=== PATIENT | female | born 1975 | race African-American/Black ===

== ENCOUNTER 2021-07-11 10:53 | Outpatient (REF) | payer OTHER, SELFPAY ==
[2021-07-11 14:23] LABS: Anion Gap 10 (12-20); Blood Urea Nitrogen 11 mg/dL (9-16); Calcium 9.3 mg/dL (8.4-10.2); Carbon Dioxide 28 mmol/L (22-29); Chloride 105 mmol/L (96-108); Estimated Glomerular Filt Rate > 60; Glucose Fasting 81 mg/dL (60-99); Potassium 4.1 mmol/L (3.3-5.1); Sodium 139 mmol/L (135-145)
== END 2021-07-11 10:54 | disposition home or self-care (01) ==
LOC: HO.WFDLDS 10:53
PROVIDERS: Visit Provider Hospitalist
DX: Z76.89 Persons encountering health services in other specified circumstances (principal)
CPT/HCPCS: 36415; 80048

== ENCOUNTER 2021-07-20 10:33 | Outpatient (REF) | payer OTHER, SELFPAY ==
[2021-07-20 13:49] LABS: Hematocrit 35.1 % (37.0-47.0); Hemoglobin 10.3 g/dl (12.0-16.0); Mean Corpuscular HGB Conc 29.3 g/dl (31.0-35.0); Mean Corpuscular Hemoglobin 19.8 pg (27.0-33.0); Mean Corpuscular Volume 67.5 fL (80.0-98.0); Mean Platelet Volume 10.5 fL (9.4-12.3); Platelet Count 386 X10*3/uL (160-400); Red Cell Distribution Width 19.9 % (11.0-16.0); White Blood Count 7.7 X10*3/uL (4.8-10.8)
[2021-07-20 14:34] LABS: Alanine Aminotransferase 14 U/L (0-31); Alkaline Phosphatase 72 U/L (39-117); Anion Gap 12 (12-20); Aspartate Amino Transferase 16 U/L (5-31); Bilirubin Total 0.3 mg/dL (0.0-1.0); Blood Urea Nitrogen 14 mg/dL (9-16); Calcium 9.5 mg/dL (8.4-10.2); Carbon Dioxide 26 mmol/L (22-29); Chloride 102 mmol/L (96-108); Cholesterol 146 mg/dL; Estimated Glomerular Filt Rate 59; Glucose Fasting 163 mg/dL (60-99); HDL Cholesterol 31 mg/dL; LDL Cholesterol Calculated 97 mg/dl; Potassium 3.6 mmol/L (3.3-5.1); Sodium 136 mmol/L (135-145); Total Protein 7.5 g/dL (6.5-8.0); Triglycerides 93 mg/dL
[2021-07-20 14:54] LABS: TSH reflex Free T4 0.59 uIU/mL (0.32-4.0)
== END 2021-07-20 10:34 | disposition home or self-care (01) ==
LOC: HO.WFDLDS 10:33
PROVIDERS: Visit Provider Hospitalist
DX: Z00.00 Encounter for general adult medical examination without abnormal findings (principal)
CPT/HCPCS: 36415; 80053; 80061; 84443; 85027

== ENCOUNTER → 2021-12-20 14:57 | Outpatient (BNVA) | payer OTHER, SELFPAY | PROVIDERS: PCP Hospitalist; Referring Provider Hospitalist; Visit Provider Nurse Practitioner | DX: D56.9 Thalassemia, unspecified (principal); D50.9 Iron deficiency anemia, unspecified; Z86.010 Personal history of colon polyps | CPT/HCPCS: 99202 ==

== ENCOUNTER 2022-01-09 | Outpatient (REF) | payer OTHER, SELFPAY ==
[2022-01-11 07:58] LABS: FIT1 NEGATIVE (NEGATIVE); FIT2 NEGATIVE (NEGATIVE)
[2022-01-11 07:59] LABS: FIT Int Ctl YES
== END 2022-01-09 00:01 | disposition home or self-care (01) ==
LOC: HO.LNP
PROVIDERS: Visit Provider Nurse Practitioner
DX: D56.9 Thalassemia, unspecified (principal); D50.9 Iron deficiency anemia, unspecified
CPT/HCPCS: 82274

== ENCOUNTER 2022-08-02 11:47 | Outpatient (REF) | payer OTHER, SELFPAY ==
[2022-08-02 14:12] LABS: MANUAL DIFF FLAG NO
[2022-08-02 14:25] LABS: Basophils Absolute Auto 0.1 X10*3/uL (0.0-0.2); Basophils Percent Auto 0.8 % (0-2); Eosinophils Absolute Auto 0.1 X10*3/uL (0.0-0.4); Eosinophils Percent Auto 1.1 % (0-4); Hematocrit 37.9 % (37.0-47.0); Hemoglobin 11.9 g/dl (12.0-16.0); Imm Gran Abs Auto 0.04 X10*3/uL (0.00-0.03); Imm Gran Pct Auto 0.4 % (0.0-0.4); Lymphocytes Absolute Auto 4.1 X10*3/uL (1.2-4.9); Lymphocytes Percent Auto 43.7 % (20-40); Mean Corpuscular HGB Conc 31.4 g/dl (31.0-35.0); Mean Corpuscular Volume 79.6 fL (80.0-98.0); Mean Platelet Volume 11.2 fL (9.4-12.3); Monocytes Absolute Auto 0.7 X10*3/uL (0.1-1.2); Neutrophils Absolute Auto 4.5 x10*3/uL (2.0-8.3); Platelet Count 315 X10*3/uL (160-400); Red Blood Count 4.76 X10*6/uL (4.20-5.50); Red Cell Distribution Width 16.1 % (11.0-16.0); White Blood Count 9.5 X10*3/uL (4.8-10.8)
[2022-08-02 15:35] LABS: Alanine Aminotransferase 14 U/L (0-31); Albumin Level 4.1 g/dL (3.5-5.0); Alkaline Phosphatase 68 U/L (39-117); Anion Gap 12 (12-20); Aspartate Amino Transferase 18 U/L (5-31); Bilirubin Total 0.5 mg/dL (0.0-1.0); Blood Urea Nitrogen 15 mg/dL (9-16); Carbon Dioxide 29 mmol/L (22-29); Chloride 103 mmol/L (96-108); Cholesterol 156 mg/dL; Estimated Glomerular Filt Rate 58; Ferritin 46 ng/mL (10-250); Glucose Fasting 95 mg/dL (60-99); Glucose Random 95 mg/dL (60-115); HDL Cholesterol 34 mg/dL; LDL Cholesterol Calculated 98 mg/dl; Potassium 3.8 mmol/L (3.3-5.1); Sodium 140 mmol/L (135-145); TSH reflex Free T4 1.12 uIU/mL (0.32-4.0); Total Protein 7.4 g/dL (6.5-8.0); Triglycerides 121 mg/dL
== END 2022-08-02 11:48 | disposition home or self-care (01) ==
LOC: HO.WFDLDS 11:47
PROVIDERS: Internal Medicine Medical Oncology; Visit Provider Hospitalist
DX: Z00.00 Encounter for general adult medical examination without abnormal findings (principal); D50.9 Iron deficiency anemia, unspecified
CPT/HCPCS: 36415; 80053; 80061; 82728; 84443; 85025

== ENCOUNTER → 2022-12-19 08:41 | Outpatient (BNVA) | payer OTHER, SELFPAY | PROVIDERS: PCP Hospitalist; Visit Provider Nurse Practitioner | DX: Z01.818 Encounter for other preprocedural examination (principal); Z12.11 Encounter for screening for malignant neoplasm of colon; D50.9 Iron deficiency anemia, unspecified; D56.9 Thalassemia, unspecified; D12.6 Benign neoplasm of colon, unspecified; Z86.010 Personal history of colon polyps | CPT/HCPCS: 99212 ==

== ENCOUNTER 2023-06-12 08:58 | Day surgery (SDC) | payer OTHER, SELFPAY ==
--- NOTE | 2023-06-11 11:47 | P.CONAN_ITS ---
Documented by User: Yumiko Sorto NP 06/11/23 11:50 HPI - Anesthesia Eval Consult details Narrative: 47yo F for Colonoscopy Hx anemia and thalasemia. Per 08/2022 heme office visit, no treatment beyond folic acid and GI eval for LINDA. PCP to follow. [facility] Active Problems Active Problems: All Active Problems (Updated 05/29/23 @ 12:00 by [employer]) Pre-op examination (Acute) Well-controlled hypertension (Acute) BMI 34.0-34.9,adult (Acute) Tubular adenoma of colon (Acute) Diabetes type 2, controlled (Acute) Microcytic anemia (Acute) Elevated hemoglobin A1c (Acute) BMI 39.0-39.9,adult (Acute) Thalassemia (Acute) Poorly-controlled hypertension (Acute) Normal physical exam (Acute) Encounter to establish care with new doctor (Acute) Past Medical History Medical History Diabetes type 2, controlled Thalassemia TIA (transient ischemic attack) Family History Family History Maternal Grandmother Colon cancer Diabetes High blood pressure Stroke Father Abnormal heart rhythm High blood pressure Paternal Grandmother Kidney disease Surgical History Surgical History History of esophagogastroduodenoscopy (EGD) H/O colonoscopy Hx of cholecystectomy Social History Social History Household Members: Spouse and Children Housing: Apartment Are you a primary director day care center to a significant other at home: No Do you presently have visiting nurse or other home services: No Patient Tobacco Use Status: Never used Tobacco e-Cigarette/Vaping Use: Never Used Advance Directives: No Advance Directives Information Provided: Yes service: No Current occupational status: unemployed Current occupational exposures/hazards: No Cognitive needs: No Hearing needs: No Vision needs: No Meds Allergies Allergy/AdvReac Type Severity Reaction Status Date / Time No Known Allergies Allergy Verified 09/01/22 15:18 Exam Exam Date and Time: June 11, 2023 1147 Assessment and Plan Assessment Anesthesia Assessment: Chart Reviewed Documented by User: Kayleigh Walker MD 06/12/23 09:31 PMFSH Past Medical History Medical History Diabetes type 2, controlled Thalassemia TIA (transient ischemic attack) Family History Family History Maternal Grandmother Colon cancer Diabetes High blood pressure Stroke Father Abnormal heart rhythm High blood pressure Paternal Grandmother Kidney disease Family history of problems with anesthesia: No Surgical History Surgical History History of esophagogastroduodenoscopy (EGD) H/O colonoscopy Hx of cholecystectomy History of Problems with Anesthesia: No Social History Social History Household Members: Spouse and Children Housing: Apartment Are you a primary director day care center to a significant other at home: No Do you presently have visiting nurse or other home services: No Patient Tobacco Use Status: Never used Tobacco e-Cigarette/Vaping Use: Never Used Advance Directives: No Advance Directives Information Provided: Yes service: No Current occupational status: unemployed Current occupational exposures/hazards: No Cognitive needs: No Hearing needs: No Vision needs: No Meds Allergies Allergy/AdvReac Type Severity Reaction Status Date / Time No Known Allergies Allergy Verified 09/01/22 15:18 Exam Airway Mallampati Class: II TM Dist: >3cm Neck ROM: Full Heart: rrr Lungs: cta Assessment and Plan Assessment Anesthesia Assessment: Anesthesia Plan Discussed Final Anesthetic Review Family History of Problems with Anesthesia: No History of Problems with Anesthesia: No NPO: Yes ASA Class: III Final Preanesthetic Review: No Changes in Pt Med Stat, Meds/Allgs Chart Reviewed, Consent Obtained/Reviewed and Anes Risks/Benef Reviewed Patient Risk: Intermediate Procedure Risk: Low Anesthetic Plan Anesthetic Plan: MAC: Disposition: Standard PACU
[2023-06-12 09:35] LABS: UPreg QC Valid YES; Urine Pregnancy NEGATIVE (NEGATIVE)
[2023-06-12 09:43] VITALS: BMI 35.5
[2023-06-12 09:45] VITALS: BP 148/84; PULSE 60; RESP 18; TEMP 36.3; O2SAT 98
[2023-06-12] MEDS: Lactated Ringers 1,000 ML 100 ML IVCONT (09:46)
--- NOTE | 2023-06-12 09:49 | MHC.SHP ---
Pre-Procedural Eval Section A Date of Service: 06/12/23 Section B Chief Complaint: Benign neoplasm of colon, unspecified, Thalassemia Relevant Family History (Specify if Yes): Yes Relevant Social History: None Present Medications: see Short Stay Collaborative assessment Medical History: Significant History (Thalassemia TIA (transient ischemic attack)) History of Previous Operations: Relevant previous surgery/procedure and date(s) (H/O colonoscopy History of esophagogastroduodenoscopy (EGD) Hx of cholecystectomy) Allergies: Allergies Allergy/AdvReac Type Severity Reaction Status Date / Time No Known Allergies Allergy Verified 09/01/22 15:18 Review of Systems Sugical H&P ROS: Negative: Constitution, Cardiovascular, Respiratory, Neurological, Psychiatric, Hem-Onc, Allergic/Immunologic, Gastrointestinal, Genitourinary, Musculoskeletal, Integumentary, Endocrine and Eyes/Ears/Nose/Throat Exam Surgical H&P Exam: Normal: HEENT, Normal: Heart, Normal: Lungs, Normal: Extremities, Normal: Abdomen, Normal: Skin and Normal: Neurological Plan Diagnosis/Plan: Unchanged I have reviewed the history and physical and performed a pertinent physical examination on my patient. No changes have occurred unless specified. Time Spent With Patient Time: Total time managing care of this patient today ____ minutes.
[2023-06-12 09:51] LABS: Glucose, Whole Blood 115 mg/dL (60-115)
--- NOTE | 2023-06-12 09:52 | P.OP_ITS ---
Operative Note Operative Note Date of Service: 06/12/23 Narrative: Operative Information Procedure Description: Colonoscopy Indication: screening Anesthesia: MAC COLONOSCOPY Instrument: Olympus variable stiffness pediatric scope 190L Colonoscopy Monitoring: Vital signs and clinical assessment, continuous EKG monitoring, Pulse oximetry, Carbon Dioxide monitoring and blood pressure monitoring were done throughout the procedure. Colon withdrawal time was 8 minutes. Procedure: The patient was placed in the left lateral decubitis position and pre-procedure medications were administered. After a digital rectal examination of the ano-rectum, the video colonoscope was inserted into the rectum and advanced through the colon to the cecum/TI. The colonoscope was slowly withdrawn in a retrograde panoramic fashion and the colon mucosa was carefully examined including a retroflexed view of the rectum. Findings and interventions are described below. Procedure Difficulty: moderate, pressure applied Findings: Terminal Ileum-normal Cecum:normal Ascending Colon: normal Transverse Colon -normal Descending Colon:normal Sigmoid Colon: normal Rectum: Retroflexion with small internal hemorrhoids, grade I Anorectum - normal Colon preparation: [place] Bowel Preparation Scale Right colon; 2 Transverse colon: 2 Left colon; 2 (0 = Unprepared colon segment with mucosa not seen due to solid stool that cannot be cleared. 1 = Portion of mucosa of the colon segment seen, but other areas of the colon segment not well seen due to staining, residual stool and/or opaque liquid. 2 = Minor amount of residual staining, small fragments of stool and/or opaque liquid, but mucosa of colon segment seen well. 3 = Entire mucosa of colon segment seen well with no residual staining, small fragments of stool or opaque liquid) Impression and Post Procedure Diagnosis: internal hemorrhoids Plan: High fiber diet leaflet Avoid straining at stool, epsom salts and sitz bath, anusol supps or cream Repeat Colonoscopy in 5 years due to prior hx of polyps and FH of CRC in grandparent or earlier if clinically indicated Above findings were reviewed with the patient and relevant handouts were provided if indicated.
[2023-06-12 10:34] VITALS: BP 143/70; PULSE 95; RESP 16; TEMP 36.8; O2SAT 98
[2023-06-12 10:49] VITALS: BP 138/69; PULSE 68; RESP 16; O2SAT 97
[2023-06-12 10:55] VITALS: BP 146/85; PULSE 63; RESP 14; TEMP 36.6; O2SAT 98
== END 2023-06-12 11:32 | disposition home or self-care (01) ==
PROVIDERS: Nurse Practitioner; PCP Hospitalist; Visit Provider Internal Medicine Gastroenterology
PROC: 0DJD8ZZ Inspection of Lower Intestinal Tract, Via Natural or Artificial Opening Endoscopic (ICD-10-PCS; CPT 45378; principal; 2023-06-12 10:50)
DX: Z12.11 Encounter for screening for malignant neoplasm of colon (principal); Z86.010 Personal history of colon polyps; K64.0 First degree hemorrhoids; D56.9 Thalassemia, unspecified; I10 Essential (primary) hypertension; E11.8 Type 2 diabetes mellitus with unspecified complications; D50.9 Iron deficiency anemia, unspecified; Z80.1 Family history of malignant neoplasm of trachea, bronchus and lung; Z86.73 Personal history of transient ischemic attack (TIA), and cerebral infarction without residual deficits; Z90.49 Acquired absence of other specified parts of digestive tract
CPT/HCPCS: 45378; 81025; 82947; J1100; J2765

== ENCOUNTER → 2023-06-12 08:58 | Outpatient (BNV) | payer OTHER, SELFPAY | PROVIDERS: PCP Hospitalist; Visit Provider Internal Medicine Gastroenterology | DX: Z12.11 Encounter for screening for malignant neoplasm of colon (principal); K64.0 First degree hemorrhoids | CPT/HCPCS: 45378 ==

== ENCOUNTER 2023-08-22 10:48 | Outpatient (AMB) | payer OTHER, SELFPAY ==
--- NOTE | 2023-08-22 10:50 | MHC.PC.OV ---
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 Her last office visit was in 07/2022. Her last routine blood work was almost a year ago She has history of hypertension, pre-diabetes, obesity, and thalassemia. She notes that she has been on atorvastatin 20mg daily since she was diagnosed with TIA 8 years ago She admits to taking her medications as prescribed without adverse reactions She denies acute symptoms at this time She reports h/o amenorrhea for over a year. She notes that her former PCP prescribed due to prediabetes and likely PCOS d/t h/o amenorrhea. She denies h/o diabetes. She notes that she has not had her period for over 1 year. She reports light spotting x 1 day last month or in June. She also reports associated intermittent hot flashes. She states there is no chance she could be She notes that her last gynecology visit and pap smear test was 5-6 years ago. She had a normal pap smear. She has not established with a quality control chemist since she relocated from [facility] 4.5 years ago Her last eye exam with [facility] was on 07/31/2023 Her last colonoscopy was with [facility] [place] on 05/2023: Normal. Repeat Colonoscopy in 5 years due to prior hx of polyps and FH of CRC in grandparent or earlier if clinically indicated [facility] Medical History (Updated 08/22/23 @ 12:04 by Amalia Clancy CNP) Diabetes type 2, controlled Thalassemia TIA (transient ischemic attack) Surgical History History of esophagogastroduodenoscopy (EGD) H/O colonoscopy Hx of cholecystectomy Family History Maternal Grandmother Colon cancer Diabetes High blood pressure Stroke Father Abnormal heart rhythm High blood pressure Paternal Grandmother Kidney disease Social History Household Members: Spouse and Children Housing: Apartment Are you a primary laboratory animal caretaker to a significant other at home: No Do you presently have visiting nurse or other home services: No Patient Tobacco Use Status: Never used Tobacco e-Cigarette/Vaping Use: Never Used service: No Current occupational status: employed 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 1. Little interest or pleasure in doing things: not at all 2. Feeling down, depressed, or hopeless: not at all 3. Trouble falling or staying asleep, or sleeping too much: several days 4. Feeling tired or having little energy: not at all 5. Poor appetite or overeating: not at all 6. Feeling bad about yourself - or that you are a failure or have let yourself or your family down: not at all 7. Trouble concentrating on things, such as reading the newspaper or watching television: not at all 8. Moving or speaking so slowly that other people could have noticed. Or the opposite - being so fidgety or restless that you have been moving around a lot more than usual: not at all 9. Thoughts that you would be better off or of hurting yourself in some way: not at all Total score: 1 Depression Screening Interpretation: Negative Depression Screening Done: Yes 03016 - PHQ-9 Billing: Yes Source: Developed by Drs. Lester Olivera, Laura Lepe, Ho Slater and colleagues, with an educational chelsey from [employer]. Thrive Questionnaire Date Thrive assessed: 08/22/23 I am a: Patient What is your living situation today?: I have a steady place to live Within the past 12 months, did the food you bought not last and you didn't have the money to get more?: Never true Within the past 12 months, did you worry whether your food would run out before you got money to buy more?: Never true Do you have trouble paying for medicines?: No Do you have trouble getting transportation to medical appointments?: No Do you have trouble paying your heating and electricity bill?: No Do you have trouble taking care of your child, family member or friend?: No Do you have trouble with day-to-day activities such as bathing, preparing meals, shopping, managing finances, etc.?: No Are you currently unemployed and looking for a job?: No Are you interested in more education?: Yes Please select the resources that you would like help with: Education Currently or been in a relationship where the following occur: no concerns reported AUDIT C Alcohol Use Questionnaire (AUDIT-C) 1. How often do you have a drink containing alcohol?: 2-4 times a month 2. How many drinks containing alcohol do you have on a typical day when you are drinking?: 1 or 2 3. How often do you have six or more drinks on one occasion?: Never Total Score: 2 TIANA-7 AMB Questionnaire TIANA-7 Date TIANA - 7 assessed: 08/22/23 Feeling nervous, anxious, or on edge: 0 = Not at all Not being able to stop or control worryin = Not at all Worrying too much about different things: 1 = Several days Trouble relaxin = Not at all Being so restless that it is hard to sit still: 0 = Not at all Becoming easily annoyed or irritable: 1 = Several days Feeling afraid as if something awful might happen: 0 = Not at all Total TIANA-7 score (0-4 normal; 5-9 mild; 10-14 moderate; 15-21 severe): 2 Source: Developed by Drs. Lester Olivera, Laura Lepe, Ho Slater and colleagues, with an educational chelsey from [employer]. TIANA-7 Assessment Billing TIANA-7 Assessment Tool: TIANA-7 Assessment [id number] Review of Systems Const Details: Const Denies chills, Denies fatigue, Denies fever(s), Denies headache(s) and Denies weakness ENT Denies dizziness and Denies headache(s) Card Denies chest pain, Denies lightheadedness, Denies dyspnea and Denies other (Palpitations) Resp Denies cough, Denies dyspnea, Denies wheezing and Denies other ( shortness of breath) GI Denies abdominal pain, Denies melena, Denies hematochezia, Denies change in bowel habits, Denies dyspepsia and Denies nausea Denies hematuria and Denies dysuria Musc Denies abnormal gait, Denies myalgias, Denies arthralgias, Denies numbness and Denies tingling Skin/Breast Denies rash, Denies unusual bruising and Denies wounds Neuro Denies abnormal gait, Denies dizziness, Denies headache(s), Denies memory loss, Denies numbness, Denies Sensory deficit (Neuro), Denies tingling and Denies weakness Psych Denies anxiety, Denies depression, Denies memory loss Endo Denies cold intolerance, Denies fatigue, Denies heat intolerance, Denies polydipsia and Denies polyuria Aller/Immun Denies wheezing Physical exam (Primary Care) Vital Signs: Last Vital Signs Temp 97.3 F 08/22/23 10:51 Pulse 84 08/22/23 10:51 Resp 13 08/22/23 10:51 BP 128/76 08/22/23 10:51 Pulse Ox 99 08/22/23 10:51 Oxygen Delivery Method Room Air 08/22/23 10:51 BMI result Body Mass Index 36.6 Tobacco/Smoking Status: Tobacco use Status Tobacco use date assessed 08/22/23 08/22/23 11:05 Patient Tobacco Use Status Never used Tobacco 08/22/23 10:58 e-Cigarette/Vaping Use Never Used 08/22/23 10:58 PHQ-9: PHQ-9 Score PHQ-9: Total score 1 08/22/23 11:23 Depression Screening Interpretation: Negative Thrive Assessment: Date of Thrive Assessment Date Thrive assessed 08/22/23 08/22/23 11:05 Currently or been in a relationship where the following occur: no concerns reported Const Other: General: no acute distress and well developed Nutritional Appearance: well nourished Orientation/consciousness: patient oriented x3 HENMT Head: Yes normocephalic and Yes atraumatic Eyes General: appearance normal, both eyes and all related structures Pupils: Equal, round and reactive pupils present EOM: EOMs intact bilaterally Resp Effort & Inspection: normal respiratory effort Auscultation: clear to auscultation bilaterally Cardio Rate: regular rate Rhythm: regular rhythm Heart sounds: S1 normal heart sound present, S2 normal heart sound present, no gallops, no murmurs and no rubs GI Palpation (GI): No Abdominal aortic bruit present, Soft to palpation, nontender, No hepatosplenomegaly present and No Rebound tenderness present Auscultation: normal bowel sounds General: Yes no CVA tenderness Back/Spine/Pelvis Back: no CVA tenderness Cervical Spine: cervical ROM normal and No Cervical spine tenderness Thoracic/Lumbar Spine: thoraco-lumbar ROM normal, No pain with thoraco-lumbar ROM, No thoracic spinal tenderness and No lumbar spinal tenderness Extrem General: Yes normal to inspection, No edema and No calf tenderness Skin General: warm and dry. Normal skin color. Normal skin turgor Lesions: no lesions Rashes: no rashes Trauma: no lacerations or abrasions Wounds: no wounds Nails: normal Neuro General: patient oriented x3, gait normal and no focal neuro deficit Cranial nerves: Yes Equal, round and reactive pupils present Cognition (Neuro): normal cognition Gait exam (Neuro): Normal gait present Sensory Exam: No Sensory deficit (Neuro) Psych Appearance: grossly normal Affect: normal affect Attitude: cooperative Thought process: Normal thought process present Assessment and Plan Assessment & Plan (1) Hypertension: Code(s): I10 - Essential (primary) hypertension Qualifiers: Hypertension type: primary hypertension Qualified Code(s): I10 - Essential (primary) hypertension Plan: Blood pressure is 120/76, within goal of less than 140/90 Continue current treatment regimen Low-sodium diet encouraged Follow-up in 1-2 months for an extended exam and labs review Return sooner with symptoms or concerns Verbalized understanding and agreed with treatment plan (2) Prediabetes: Code(s): R73.03 - Prediabetes Plan: Denies history of diabetes A1c 6.3% Continue to take metformin as prescribed ADA diet and routine exercise encouraged Will recheck A1c in 6 months Verbalized understanding and agreed with treatment plan (3) Amenorrhea: Code(s): N91.2 - Amenorrhea, unspecified Plan: She notes that she stopped having menstrual cycles over a year ago. However she had some light spotting last month order month prior. She reports associated hot flashes. She denies being Likely menopause Referred to [facility] electrical development engineer for further evaluation Return with worsening or new symptoms Verbalized understanding and agreed with treatment plan (4) Vasomotor symptoms due to menopause: Code(s): N95.1 - Menopausal and female climacteric states Plan: As above (5) Pap smear for cervical cancer screening: Code(s): Z12.4 - Encounter for screening for malignant neoplasm of cervix Plan: She notes that her last Pap smear test was 5-6 years ago: Normal Referred to [facility] electrical development engineer (6) Obesity (BMI 30-39.9): Code(s): E66.9 - Obesity, unspecified Plan: She currently weighs 213 lb, BMI is 36.6 She notes she has been walking for exercise and eat fairly healthy She intends to exercise routinely, including utilizing the gym and make healthy dietary choices Declines referral to dietitian/warehouse assistant or weight management She notes she will make lifestyle changes for 6 months and inform her PCP if she is unable to lose weight so that a referral can be made for weight management Advised to follow-up with symptoms or concerns Verbalized understanding and agreed with treatment plan Orders: Orders AMB Hemoglobin A1c Today Z13.9 - Encounter for screening, unspecified Complete Blood Count Auto Diff Today I10 - Essential (primary) hypertension, R73.03 - Prediabetes, Z00.00 - Encounter for general adult medical examination without abnormal findings Comprehensive Trenary. Panel Fast Today I10 - Essential (primary) hypertension, R73.03 - Prediabetes, Z00.00 - Encounter for general adult medical examination without abnormal findings Lipid Panel Today Z00.00 - Encounter for general adult medical examination without abnormal findings UA CC w/rflx Micro + Cult Today Z00.00 - Encounter for general adult medical examination without abnormal findings TSH reflex Free T4 Today Z00.00 - Encounter for general adult medical examination without abnormal findings HCG Quantitative Today N91.2 - Amenorrhea, unspecified Referrals CENTRAL SUPPLY SUPERVISOR Referral N91.2 - Amenorrhea, unspecified, N95.1 - Menopausal and female climacteric states, Z12.4 - Encounter for screening for malignant neoplasm of cervix Coding Level of Care Code Est Pt Level 4 (91892) Diagnoses Primary hypertension I10 Hypertension type: primary hypertension Prediabetes R73.03 Amenorrhea N91.2 Vasomotor symptoms due to menopause N95.1 Pap smear for cervical cancer screening Z12.4 Obesity (BMI 30-39.9) E66.9 Additional Codes TIANA-7 Assessment Billing - TIANA-7 Assessment Tool: TIANA-7 Assessment [id number] ([id number])
[2023-08-22 10:51] VITALS: BP 128/76; PULSE 84; RESP 13; TEMP 36.3; O2SAT 99; BMI 36.6
== END 2023-08-22 12:02 | disposition home or self-care (01) ==
PROVIDERS: PCP Nurse Practitioner Family; Visit Provider Nurse Practitioner Family
DX: I10 Essential (primary) hypertension (principal); E66.9 Obesity, unspecified; Z68.36 Body mass index [BMI] 36.0-36.9, adult; R73.03 Prediabetes; N91.2 Amenorrhea, unspecified; N95.1 Menopausal and female climacteric states
CPT/HCPCS: 83036; 99214

== ENCOUNTER 2023-08-22 12:04 | Outpatient (REF) | payer OTHER, SELFPAY ==
[2023-08-22 14:09] LABS: MANUAL DIFF FLAG NO
[2023-08-22 14:13] LABS: Basophils Absolute Auto 0.1 X10*3/uL (0.0-0.2); Eosinophils Absolute Auto 0.1 X10*3/uL (0.0-0.4); Eosinophils Percent Auto 1.3 % (0-4); Hematocrit 40.7 % (37.0-47.0); Hemoglobin 12.6 g/dl (12.0-16.0); Imm Gran Abs Auto 0.02 X10*3/uL (0.00-0.03); Imm Gran Pct Auto 0.3 % (0.0-0.4); Lymphocytes Absolute Auto 3.3 X10*3/uL (1.2-4.9); Lymphocytes Percent Auto 47.2 % (20-40); Mean Corpuscular Hemoglobin 25.2 pg (27.0-33.0); Mean Corpuscular Volume 81.4 fL (80.0-98.0); Mean Platelet Volume 11.2 fL (9.4-12.3); Monocytes Absolute Auto 0.5 X10*3/uL (0.1-1.2); Monocytes Percent Auto 7.4 % (2-11); Neutrophils Percent Auto 42.8 % (45-73); Platelet Count 266 X10*3/uL (160-400); Red Cell Distribution Width 15.9 % (11.0-16.0); White Blood Count 6.9 X10*3/uL (4.8-10.8)
[2023-08-22 14:14] LABS: Appearance Urine Clear; Color Urine Yellow; Glucose Urine UA Negative (Negative); Leukocyte Esterase Urine Negative (Negative); Nitrite Urine Negative (Negative); UMIC TRIGGER UACC YES; Urine Blood Small (1+) (Negative); Urine Ketones Negative (Negative); Urine Protein Negative (Neg-Trace)
[2023-08-22 14:17] LABS: Bacteria Urine None Seen (None Seen); Hyaline Casts Urine 0-2 /LPF (0-2); Squamous Epithelial Cell Urine 0-2 /HPF (0-2); WBC Urine 0-5 /HPF (0-5)
[2023-08-22 15:01] LABS: Alanine Aminotransferase 12 U/L (0-31); Albumin Level 4.1 g/dL (3.5-5.0); Alkaline Phosphatase 72 U/L (39-117); Anion Gap 13 (12-20); Aspartate Amino Transferase 15 U/L (5-31); Bilirubin Total 0.4 mg/dL (0.0-1.0); Blood Urea Nitrogen 16 mg/dL (9-16); Carbon Dioxide 27 mmol/L (22-29); Chloride 105 mmol/L (96-108); Cholesterol 170 mg/dL (<200); Estimated Glomerular Filt Rate > 60; Glucose Fasting 97 mg/dL (60-99); HDL Cholesterol 37 mg/dL (>40); LDL Cholesterol Calculated 108 mg/dL (<100); Potassium 3.7 mmol/L (3.3-5.1); Sodium 141 mmol/L (135-145); Triglycerides 129 mg/dL (<150)
[2023-08-22 15:08] LABS: HCG Quantitative 4 mIU/mL; TSH reflex Free T4 0.77 uIU/mL (0.32-4.0)
== END 2023-08-22 12:05 | disposition home or self-care (01) ==
LOC: HO.WFDLDS 12:04
PROVIDERS: Visit Provider Nurse Practitioner Family
DX: Z00.00 Encounter for general adult medical examination without abnormal findings (principal); R73.01 Impaired fasting glucose; I10 Essential (primary) hypertension
CPT/HCPCS: 36415; 80053; 80061; 81001; 84443; 84702; 85025

== ENCOUNTER 2023-10-18 14:43 | Outpatient (REF) | payer OTHER, SELFPAY ==
[2023-10-25 04:23] LABS: HPV mRNA E6/E7 rflx Not Detected (Not Detected)
== END 2023-10-18 14:44 | disposition home or self-care (01) ==
LOC: HO.LNP 14:43
PROVIDERS: PCP Nurse Practitioner Family; Visit Provider Advanced Practice Midwife
DX: Z01.419 Encounter for gynecological examination (general) (routine) without abnormal findings (principal); N95.0 Postmenopausal bleeding; R23.2 Flushing
CPT/HCPCS: 87624; 88142; 99386

== ENCOUNTER 2023-10-18 14:43 | Outpatient (AMB) | payer OTHER, SELFPAY ==
--- NOTE | 2023-10-18 14:49 | A.OFFVIS_ITS ---
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 Doing well with no concerns. She tries to eat healthy and stays active with exercise. Currently is sexually active with her . She denies vaginal itching and irritation. STI screening offered; she declines. No menses in > 1-2yrs., having hot flashes. She reports light spotting in July. Denies family history of ovarian cancer. FH-breast cancer-cousin, colon cancer- MGM. Last pap smear unknown, negative. Mammogram: not UTD. [facility] Medical History (Updated 08/22/23 @ 12:04 by Amalia Clancy CNP) Diabetes type 2, controlled Thalassemia TIA (transient ischemic attack) Surgical History History of esophagogastroduodenoscopy (EGD) H/O colonoscopy Hx of cholecystectomy Family History (Updated 10/18/23 @ 14:56 by JOCY Holliday) Maternal Grandmother Colon cancer Diabetes High blood pressure Stroke Father Abnormal heart rhythm High blood pressure Paternal Grandmother Kidney disease Family/Other Breast cancer Social History (Updated 10/18/23 @ 14:56 by JOCY Holliday) Household Members: Spouse and Children Housing: Apartment Are you a primary care analyst to a significant other at home: No Do you presently have visiting nurse or other home services: No Alcohol intake: current Alcohol intake frequency: holidays/special occasions only Patient Tobacco Use Status: Never used Tobacco e-Cigarette/Vaping Use: Never Used service: No Current occupational status: employed 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 Current occupational exposures/hazards: No Cognitive needs: No Hearing needs: No Vision needs: No Female Reproductive History Menstrual Age of Menarche: 10 Duration of menses: 6-7 days control method: none Total pregnancies: 3 Full term: 3 Number of Living Children: 3 Review of Systems Const All systems reviewed & are unremarkable except as noted in HPI and below Reports as per HPI Eyes Reports no additional complaints ENT Reports no additional complaints Card Reports no additional complaints Resp Reports no additional complaints GI Reports as per HPI and Reports no additional complaints Reports as per HPI Musc Reports no additional complaints Skin/Breast Reports as per HPI Neuro Reports no additional complaints Psych Reports no additional complaints Endo Reports no additional complaints Jeanp-Aul/Lymph Reports no additional complaints Aller/Immun Reports no additional complaints Physical Exam Vital Signs: Last Vital Signs BP 132/90 H 10/18/23 14:50 BMI result Body Mass Index 36.7 Const General: cooperative, healthy appearing, no acute distress, well developed and alert Orientation/consciousness: patient oriented x3 HEENT Head: Yes normal to inspection Eyes General: appearance normal, both eyes and all related structures Neck Neck: Yes normal visual inspection Thyroid: Thyroid normal Chest Chest palpation & inspection: normal inspection of the chest and other (no puckering, dimpling, peau de orange, retraction, discharge, masses) Breast/axilla inspection: normal inspection of the breasts Breast/axilla palpation: normal palpation of the breasts Resp Effort & Inspection: normal respiratory effort GI Inspection: Yes normal to inspection Palpation (GI): Soft to palpation Rectal Exam - Female: deferred General: Yes bladder normal to palpation External Female Exam: normal external appearance and normal appearance of the urethra Speculum Exam - Vagina: normal appearance of the vagina, normal palpation and normal vaginal discharge Speculum Exam - Cervix: normal appearance of the cervix, normal palpation and Other cervical findings present (Bled with Pap) Bimanual exam- vagina & uterus: normal bimanual exam, normal palpation, uterine size normal, bladder normal to palpation, normal palpation and non-tender Bimanual Exam- Adnexa, other: no masses Skin General skin exam: no rashes or lesions noted Rashes: no rashes Neuro General: patient oriented x3 Cognition (Neuro): normal cognition Extrem General: Yes normal to inspection Psych Attitude: cooperative Thought process: Normal thought process present Assessment & Plan Assessment & Plan (1) Encounter for well woman exam with routine gynecological exam: Code(s): Z01.419 - Encounter for gynecological examination (general) (routine) without abnormal findings (2) PMB (postmenopausal bleeding): Code(s): N95.0 - Postmenopausal bleeding Plan Discussed: Current recommendations for pap smears per ASCCP guidelines. Breast awareness and periodic breast exams. Maintain a healthy lifestyle including a well balanced diet and routine exercise. Mammogram yearly. Workup for postmenopausal bleeding including ultrasound and EMB. Patient verbalizes understanding and agrees to the plan of care. She was given opportunity to ask questions and all questions were answered to the best of my ability. Patient agrees with plan of care, plan follow-up after ultrasound for her EMB. Anticipatory guidance discussed regarding EMB procedure and an [id number] mild analgesic for cramping with food, advised to eat and drink the day of. RTO in one year for annual cable strander examination. This note is constructed using voice recognition software. While every effort has been made to ensure accuracy, methods and procedures analyst errors may have been included. Orders: Orders US pelvic and transvaginal Today N95.0 - Postmenopausal bleeding MM tomosynthesis screening BI Today Z12.31 - Encounter for screening mammogram for malignant neoplasm of breast Follicle Stimulating Hormone Today R23.2 - [place] Coding Level of Care Code New Pt Prev Care 40-64y(35862) Diagnoses Encounter for well woman exam with routine gynecological exam Z01.419 PMB (postmenopausal bleeding) N95.0
[2023-10-18 14:50] VITALS: BP 132/90; BMI 36.7
== END 2023-10-18 15:37 | disposition home or self-care (01) ==
LOC: HO.HWS 14:43
PROVIDERS: PCP Nurse Practitioner Family; Visit Provider Advanced Practice Midwife
DX: Z01.419 Encounter for gynecological examination (general) (routine) without abnormal findings (principal); N95.0 Postmenopausal bleeding
CPT/HCPCS: 99386

== ENCOUNTER 2023-10-18 15:50 | Outpatient (REF) | payer OTHER, SELFPAY ==
[2023-10-18 17:03] LABS: Appearance Urine Cloudy; Color Urine Yellow; Glucose Urine UA Negative (Negative); Leukocyte Esterase Urine Trace (Negative); Nitrite Urine Negative (Negative); Specific Gravity - Urine 1.015 (1.005-1.025); UMIC TRIGGER UACC YES; Urine Blood Moderate (2+) (Negative); Urine Ketones Negative (Negative); Urine Protein Negative (Neg-Trace)
[2023-10-18 17:06] LABS: HCG Quantitative 3 mIU/mL
[2023-10-18 17:11] LABS: Bacteria Urine None Seen (None Seen); Hyaline Casts Urine 0-2 /LPF (0-2); Squamous Epithelial Cell Urine 0-2 /HPF (0-2); WBC Urine 0-5 /HPF (0-5)
[2023-10-19 17:43] LABS: Follicle Stimulating Hormone 79.8 mIU/mL
== END 2023-10-18 15:51 | disposition home or self-care (01) ==
LOC: HO.LAB 15:50
PROVIDERS: PCP Nurse Practitioner Family; Visit Provider Advanced Practice Midwife
DX: Z00.00 Encounter for general adult medical examination without abnormal findings (principal); R23.2 Flushing; N91.2 Amenorrhea, unspecified
CPT/HCPCS: 36415; 81001; 81003; 83001; 84702

== ENCOUNTER 2023-10-23 14:01 | Outpatient (REF) | payer OTHER, SELFPAY ==
--- NOTE | ~2023-10-23 | US_ITS ---
EXAMINATION: US PELVIS COMPLETE CLINICAL INFORMATION: Postmenopausal bleeding. COMPARISON: None. TECHNIQUE: Transabdominal and transvaginal imaging were performed. FINDINGS: The uterus is of normal size and echogenicity, measuring 9.2 x 6.0 x 6.4 cm. The uterus is anteverted. A poorly defined endometrium is identified measuring 2.9 cm. FIBROIDS: There is 1 fibroid seen. 1. Location: Anterior leftward fundus, subserosal. Size: 3.3 x 2.9 x 2.8 cm. Fibroid characteristics: Heterogeneously hypoechoic. Both ovaries are of normal size and echogenicity. The right ovary measures 2.8 x 2.0 x 2.0 cm for a volume of 5.6 mL. There are 1.1 cm and 1.6 cm simple physiologic follicles, which require no imaging follow-up. The left ovary measures 3.5 x 1.8 x 2.0 cm for a volume of 6.6 mL. The left ovary contains an 8 mm shadowing calcification. There is no pelvic free fluid. US/US pelvic and transvaginal IMPRESSION: 1. A uterine fibroid is seen, as detailed. 2. There is abnormal postmenopausal endometrial stripe thickening to is much is 2.9 cm. Gynecology evaluation and management is recommended, with consideration for tissue sampling, if clinically warranted. 3. An 8 mm left ovarian shadowing calcification is seen, raising the possibility of a dermoid tumor. Again, Gynecology evaluation and management are recommended.
== END 2023-10-23 14:02 | disposition home or self-care (01) ==
LOC: HO.HMGCX 14:01
PROVIDERS: PCP Nurse Practitioner Family; Visit Provider Advanced Practice Midwife
DX: N95.0 Postmenopausal bleeding (principal)
CPT/HCPCS: 76830; 76856

== ENCOUNTER 2023-10-29 14:45 | Outpatient (AMB) | payer OTHER, SELFPAY ==
[2023-10-29 15:05] VITALS: BP 144/84; PULSE 88; RESP 13; TEMP 36.3; O2SAT 99; BMI 36.6
--- NOTE | 2023-10-29 15:05 | MHC.PC.OV ---
Vital Signs 10/29/23 15:05 10/29/23 15:33 Height 5 ft 4 in Weight 213 lb 4 oz BMI 36.6 BP 144/84 H 140/90 H Blood Pressure Location Rt brachial Lt brachial Position Sitting Sitting Respiration 13 Pulse 88 Pulse Source Pulse Oximeter Temp 97.4 F Temp Source Temporal Artery Scan Pulse Oximetry (%) 99 Oxygen Delivery Method Room Air Intake Visit Reasons: CPE, labs review Diagram Clerk Required: No Accompanied by: Self / Same As Patient Allergies No Known Allergies Allergy (Verified 10/29/23 15:26) Medication List - Last Reconciled 10/29/23 by Amalia Clancy CNP amlodipine (Norvasc) 5 mg PO DAILY atorvastatin 20 mg PO DAILY 3 months blood sugar diagnostic (FreeStyle Lite Strips) CHECK BLOOD SUGAR DAILY NEEDED blood-glucose meter (FreeStyle Lite Meter kit) As directed folic acid 1 mg PO DAILY 3 months hydrochlorothiazide 25 mg PO DAILY 3 months lancets (FreeStyle Lancets) check blood sugar daily and daily as needed losartan 100 mg PO DAILY 3 months metformin 500 mg PO BID 30 days Tobacco use date assessed: 10/29/23 Dental Screening Dental Screen Date: 10/29/23 Did you have a dental visit in the last 12 months?: Yes Did you have a dental problem in the last 6 months where you did not have access to dental care?: No Was dental information given to patient?: Patient has dentist HPI HPI Comments History of Present Illness Details 48-year-old female presents for an extended physical exam She has history of hypertension, pre-diabetes, obesity, and thalassemia She admits to taking her medications as prescribed without adverse reactions She offers no complaints and denies acute symptoms at this time Her last eye exam with [facility] was on 07/31/2023 Her last colonoscopy was with [facility] gastro[facility]ology on 05/2023: Normal. Repeat Colonoscopy in 5 years due to prior hx of polyps and FH of CRC in grandparent or earlier if clinically indicated Her last pap smear test was on 10/19/2023: pending She does not recall her last mammogram. She has a mammogram scheduled in November, She has not been vaccinated for the flu this season [facility] Medical History Diabetes type 2, controlled Thalassemia TIA (transient ischemic attack) Surgical History History of esophagogastroduodenoscopy (EGD) H/O colonoscopy Hx of cholecystectomy Family History Maternal Grandmother Colon cancer Diabetes High blood pressure Stroke Father Abnormal heart rhythm High blood pressure Paternal Grandmother Kidney disease Family/Other Breast cancer Social History Household Members: Spouse and Children Housing: Apartment Are you a primary personal care worker to a significant other at home: No Do you presently have visiting nurse or other home services: No Alcohol intake: current Alcohol intake frequency: holidays/special occasions only Patient Tobacco Use Status: Never used Tobacco e-Cigarette/Vaping Use: Never Used service: No Current occupational status: employed 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 1. Little interest or pleasure in doing things: several days 2. Feeling down, depressed, or hopeless: several days 3. Trouble falling or staying asleep, or sleeping too much: more than half the days 4. Feeling tired or having little energy: several days 5. Poor appetite or overeating: several days 6. Feeling bad about yourself - or that you are a failure or have let yourself or your family down: several days 7. Trouble concentrating on things, such as reading the newspaper or watching television: several days 8. Moving or speaking so slowly that other people could have noticed. Or the opposite - being so fidgety or restless that you have been moving around a lot more than usual: not at all 9. Thoughts that you would be better off or of hurting yourself in some way: not at all Total score: 8 Depression Screening Interpretation: Negative Depression Screening Done: Yes 20979 - PHQ-9 Billing: Yes Source: Developed by Drs. Lester Olivera, Laura Lepe, Ho Slater and colleagues, with an educational chelsey from [employer]. Thrive Questionnaire Date Thrive assessed: 10/29/23 I am a: Patient What is your living situation today?: I have a steady place to live Within the past 12 months, did the food you bought not last and you didn't have the money to get more?: Never true Within the past 12 months, did you worry whether your food would run out before you got money to buy more?: Never true Do you have trouble paying for medicines?: No Do you have trouble getting transportation to medical appointments?: No Do you have trouble paying your heating and electricity bill?: No Do you have trouble taking care of your child, family member or friend?: No Do you have trouble with day-to-day activities such as bathing, preparing meals, shopping, managing finances, etc.?: No Are you currently unemployed and looking for a job?: No Are you interested in more education?: Yes Please select the resources that you would like help with: Education Currently or been in a relationship where the following occur: no concerns reported THRIVE Score: 0 AUDIT C Alcohol Use Questionnaire (AUDIT-C) 1. How often do you have a drink containing alcohol?: Monthly or less 2. How many drinks containing alcohol do you have on a typical day when you are drinking?: 1 or 2 3. How often do you have six or more drinks on one occasion?: Never Total Score: 1 TIANA-7 AMB Questionnaire TIANA-7 Date TIANA - 7 assessed: 10/29/23 Feeling nervous, anxious, or on edge: 2 = More than half the days Not being able to stop or control worryin = More than half the days Worrying too much about different things: 1 = Several days Trouble relaxin = Several days Being so restless that it is hard to sit still: 1 = Several days Becoming easily annoyed or irritable: 1 = Several days Feeling afraid as if something awful might happen: 1 = Several days Total TIANA-7 score (0-4 normal; 5-9 mild; 10-14 moderate; 15-21 severe): 9 Source: Developed by Drs. Lester Olivera, Laura Lepe, Ho Slater and colleagues, with an educational chelsey from [employer]. TIANA-7 Assessment Billing TIANA-7 Assessment Tool: TIANA-7 Assessment 53550 Review of Systems Const Details: Denies chills, Denies fatigue, Denies fever(s), Denies headache(s) and Denies weakness HEENT Denies change in vision, Denies dizziness, Denies headache(s), Denies hearing loss, Denies nasal congestion, Denies sinus pain, Denies sinus pressure and Denies sore throat Card Denies chest pain, Denies lightheadedness, Denies dyspnea and Denies other (palpitations) Resp Denies cough, Denies dyspnea and Denies wheezing GI Denies abdominal pain, Denies melena, Denies hematochezia, Denies change in bowel habits, Denies dyspepsia and Denies nausea Denies hematuria and Denies dysuria Musc Denies abnormal gait, Denies myalgias, Denies arthralgias, Denies numbness and Denies tingling Skin/Breast Denies rash, Denies unusual bruising and Denies wounds Neuro Denies abnormal gait, Denies dizziness, Denies headache(s), Denies memory loss, Denies numbness, Denies Sensory deficit (Neuro), Denies tingling and Denies weakness Psych Denies anxiety, Denies depression and Denies memory loss Endo Denies cold intolerance, Denies fatigue, Denies heat intolerance, Denies polydipsia and Denies polyuria Jean-Paul/Lymph Denies easy bleeding and Denies easy bruising Aller/Immun Denies wheezing Physical exam (Primary Care) Vital Signs: Last Vital Signs Temp 97.4 F 10/29/23 15:05 Pulse 88 10/29/23 15:05 Resp 13 10/29/23 15:05 BP 140/90 H 10/29/23 15:33 Pulse Ox 99 10/29/23 15:05 Oxygen Delivery Method Room Air 10/29/23 15:05 BMI result Body Mass Index 36.6 Tobacco/Smoking Status: Tobacco use Status Tobacco use date assessed 10/29/23 10/29/23 15:16 Patient Tobacco Use Status Never used Tobacco 10/29/23 15:16 e-Cigarette/Vaping Use Never Used 10/29/23 15:16 PHQ-9: PHQ-9 Score PHQ-9: Total score 8 10/29/23 15:28 Depression Screening Interpretation: Negative Thrive Assessment: Date of Thrive Assessment Date Thrive assessed 10/29/23 10/29/23 15:16 Currently or been in a relationship where the following occur: no concerns reported Const Other: General: no acute distress, well developed, alert and awake Nutritional Appearance: well nourished Orientation/consciousness: patient oriented x3 [facility] Head: Yes normocephalic and Yes atraumatic Ears: hearing grossly normal bilaterally and TM's normal bilaterally General nose exam: Normal external nose present and Normal nares present Mouth: Normal oral and palatal mucosa present and moist mucous membranes Teeth and gingiva: dentition normal Throat: Yes oropharynx normal Eyes Pupils: Equal, round and reactive pupils present and Pupil accommodation reflex normal EOM: EOMs intact bilaterally Neck Neck: Yes normal visual inspection, Yes no lymphadenopathy and Yes trachea midline Thyroid: Thyroid normal Carotids: no bruits Lymphatic: no lymphadenopathy noted Chest Chest palpation & inspection: normal inspection of the chest Resp Effort & Inspection: normal respiratory effort Auscultation: clear to auscultation bilaterally Cardio Rate: regular rate Rhythm: regular rhythm Heart sounds: S1 normal heart sound present, S2 normal heart sound present, no gallops, no murmurs and no rubs Bruits: no abdominal aortic bruits and no carotid bruits GI Palpation (GI): No Abdominal aortic bruit present, Soft to palpation, nontender, No hepatosplenomegaly present and No Rebound tenderness present Auscultation: normal bowel sounds General: Yes no CVA tenderness Back/Spine/Pelvis Back: no CVA tenderness Cervical Spine: cervical ROM normal and No Cervical spine tenderness Thoracic/Lumbar Spine: thoraco-lumbar ROM normal, No pain with thoraco-lumbar ROM, No thoracic spinal tenderness and No lumbar spinal tenderness Skin General: warm and dry. Normal skin color. Normal skin turgor Lesions: no lesions Rashes: no rashes Trauma: no lacerations or abrasions Wounds: no wounds Nails: normal Neuro General: patient oriented x3, gait normal and CN's II-XI intact bilaterally Cranial nerves: Yes Equal, round and reactive pupils present Cognition (Neuro): normal cognition Gait exam (Neuro): Normal gait present Motor exam (neuro): 5/5 motor strength present throughout Sensory Exam: No Sensory deficit (Neuro) Deep tendon reflexes (DTR's): Right patellar reflex intensity grade: 2+ and Left patellar reflex intensity grade: 2+ Extrem General: Yes normal to inspection, No edema and No calf tenderness Psych Appearance: grossly normal Affect: normal affect Attitude: cooperative Thought process: Normal thought process present Office Procedures Flu Questionnaire Does the patient have a severe egg allergy?: No Does the patient have severe life threatening allergies?: No Does the patient have a fever or illness today?: No Has the patient ever had Guillain-Berne Syndrome?: No Has the patient ever had any past reaction to a flu shot?: No Immunizations flu vacc [id number] 6mos up(PF) 60 mcg(15 mcgx4)/0.5 mL IM syringe Performing Provider: Amalia Clancy CNP Performing Location: [facility] Administered by: Madeline Chin RN on 10/29/23 16:00 Dose Route Admin Location Dispensed Lot Number Expiration Date NDC Manager [employer]house 0.5 mL IM Right Deltoid 0.5 mL [id number] 03/16/24 94502-039-84 [employer] VIS Given Date VIS Provided VIS Publication Date 10/29/23 Single Vaccine 21 Eligibility Eligibility Date Funding Source Not [facility] Eligible 10/29/23 Private Assessment and Plan Assessment & Plan (1) Normal physical exam: Code(s): Z00.00 - Encounter for general adult medical examination without abnormal findings Plan: No significant physical restrictions or limitations noted Continue current treatment regimen Healthy diet and routine exercise encouraged Follow-up in a month for hypertension or return sooner with symptoms or concerns Verbalized understanding and agreed with treatment plan (2) Hypertension: Code(s): I10 - Essential (primary) hypertension Qualifiers: Hypertension type: primary hypertension Qualified Code(s): I10 - Essential (primary) hypertension Plan: Resting blood pressure is 140/90, above goal of less than 140/90 Will increase amlodipine to 10 mg daily. Take as prescribed Continue to take losartan and hydrochlorothiazide as prescribed Low-sodium diet encouraged Encouraged to check blood pressure 2 or 3 times weekly, record readings, and bring to next appointment Reports systolic blood pressure persistently above 140 and below 100 and diastolic blood pressure persistently above 90 and below 60 Follow-up in 1 month Verbalized understanding and agreed with treatment plan (3) Vaccine counseling: Code(s): Z71.85 - Encounter for immunization safety counseling Plan: She has not been vaccinated for flu season Instructed on importance of vaccination and encouraged to get vaccinated for the flu Flu vaccine administered by the nurse Orders: Orders Influenza [id number] Immunization Today Z23 - Encounter for immunization Medications: New amlodipine 10 mg PO DAILY 90 days 90 tabs 1RF Discontinued amlodipine (Norvasc) Discontinued Reason: Doctor's Order 5 mg PO DAILY 90 tabs 3RF Coding Level of Care Code Est Pt Prev Care 40-64y(44706) Diagnoses Normal physical exam Z00.00 Primary hypertension I10 Hypertension type: primary hypertension Vaccine counseling Z71.85 Additional Codes TIANA-7 Assessment Billing - TIANA-7 Assessment Tool: TIANA-7 Assessment [id number] ([id number])
[2023-10-29 15:33] VITALS: BP 140/90
== END 2023-10-29 15:49 | disposition home or self-care (01) ==
PROVIDERS: PCP Nurse Practitioner Family; Visit Provider Nurse Practitioner Family
DX: Z00.00 Encounter for general adult medical examination without abnormal findings (principal); I10 Essential (primary) hypertension; Z71.85 Encounter for immunization safety counseling; Z23 Encounter for immunization
CPT/HCPCS: 90471; 90686; 99396

== ENCOUNTER 2023-11-23 13:42 | Outpatient (REF) | payer OTHER, SELFPAY ==
--- NOTE | ~2023-11-23 | MM_ITS ---
EXAMINATION: MM SCREENING DIGITAL BREAST TOMOSYNTHESIS, BILATERAL CLINICAL INFORMATION: Screening. Asymptomatic. COMPARISON: Mammography: There are no prior mammograms for comparison. TECHNIQUE: Digital breast tomosynthesis is performed in both the craniocaudal and mediolateral oblique views along with computer-aided detection (CAD). Synthesized 2D images are generated from the tomosynthesis. FINDINGS: There are scattered areas of fibroglandular density (ACR BI-RADS breast composition Category b). There are grouped calcifications at the lower inner quadrant of the right breast which warrant additional mammographic imaging with magnification. In the left breast, there are no significant masses, abnormal calcifications, or other abnormalities. MM/MM tomosynthesis screening BI IMPRESSION: Right breast calcifications warrant additional mammographic imaging with magnification. No mammographic signs of malignancy left breast. ASSESSMENT: BI-RADS BI-RADS 0 - Incomplete: Needs additional Imaging. RECOMMENDATION: Additional views of the right breast. Radiology department staff will contact the patient for additional imaging. Additional Imaging required This examination should not preclude the clinical evaluation of a suspicious palpable abnormality. This patient's information was entered into a reminder system with a target due date for their next mammogram.
== END 2023-11-23 13:43 | disposition home or self-care (01) ==
LOC: HO.MAMMO 13:42
PROVIDERS: PCP Nurse Practitioner Family; Visit Provider Advanced Practice Midwife
DX: Z12.31 Encounter for screening mammogram for malignant neoplasm of breast (principal)
CPT/HCPCS: 77063; 77067

== ENCOUNTER → 2023-11-23 13:45 | Outpatient (BNV) | payer OTHER, SELFPAY | PROVIDERS: PCP Nurse Practitioner Family; Visit Provider Radiology Diagnostic Radiology | DX: Z12.31 Encounter for screening mammogram for malignant neoplasm of breast (principal) | CPT/HCPCS: 77063; 77067 ==

== ENCOUNTER 2023-11-26 15:00 | Outpatient (AMB) | payer OTHER, SELFPAY ==
[2023-11-26 15:07] VITALS: BP 116/70; PULSE 87; RESP 13; TEMP 36.1; O2SAT 98; BMI 36.3
--- NOTE | 2023-11-26 15:07 | A.OFFPC_ITS ---
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 Required: No Accompanied by: Self / Same As Patient Allergies No Known Allergies Allergy (Verified 11/26/23 15:18) Medication List - Last Reconciled 11/26/23 by Amalia Clancy CNP amlodipine 10 mg PO DAILY 90 days atorvastatin 20 mg PO DAILY 3 months blood sugar diagnostic (FreeStyle Lite Strips) CHECK BLOOD SUGAR DAILY NEEDED blood-glucose meter (FreeStyle Lite Meter kit) As directed folic acid 1 mg PO DAILY 3 months hydrochlorothiazide 25 mg PO DAILY 3 months lancets (FreeStyle Lancets) check blood sugar daily and daily as needed losartan 100 mg PO DAILY 3 months metformin 500 mg PO BID 30 days Tobacco use date assessed: 10/29/23 Dental Screening Dental Screen Date: 11/26/23 Did you have a dental visit in the last 12 months?: Yes Did you have a dental problem in the last 6 months where you did not have access to dental care?: No Was dental information given to patient?: Patient has dentist HPI HPI Comments History of Present Illness Details 48-year-old female presents for hyperten maria l follow-up She is on amlodipine 10 mg daily, hydrochlorothiazide 25 mg daily, and losartan 100 mg daily. She admits to taking her medications as prescribed without adver se reactions She offers no complaints and denies acute symptoms at this time She states that her and her recently joined the gym and plan to start exercising soon. Also, they have been eating vegetarian diet. [facility] Medical History Diabetes type 2, controlled Thalassemia TIA (transient ischemic attack) Surgical History History of esophagogastroduodenoscopy (EGD) H/O colonoscopy Hx of cholecystectomy Family History Maternal Grandmother Colon cancer Diabetes High blood pressure Stroke Father Abnormal heart rhythm High blood pressure Paternal Grandmother Kidney disease Family/Other Breast cancer Social History Household Members: Spouse and Children Housing: Apartment Are you a primary child care centre manager to a significant other at home: No Do you presently have visiting nurse or other home services: No Alcohol intake: current Alcohol intake frequency: holidays/special occasions only Patient Tobacco Use Status: Never used Tobacco e-Cigarette/Vaping Use: Never Used service: No Current occupational status: employed 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 Lester Olivera, Laura Lepe, Ho Slater and colleagues, with an educational chelsey from [employer]. Review of Systems Const Details: Const Denies chills, Denies fatigue, Denies fever(s), Denies headache(s) and Denies weakness ENT Denies dizziness and Denies headache(s) Card Denies chest pain, Denies lightheadedness, Denies dyspnea and Denies other (Palpitations) Resp Denies cough, Denies dyspnea, Denies wheezing and Denies other ( shortness of breath) GI Denies abdominal pain, Denies melena, Denies hematochezia, Denies change in bowel habits, Denies dyspepsia and Denies nausea Denies hematuria and Denies dysuria Musc Denies abnormal gait, Denies myalgias, Denies arthralgias, Denies numbness and Denies tingling Skin/Breast Denies rash, Denies unusual bruising and Denies wounds Neuro Denies abnormal gait, Denies dizziness, Denies headache(s), Denies memory loss, Denies numbness, Denies Sensory deficit (Neuro), Denies tingling and Denies weakness Psych Denies anxiety, Denies depression, Denies memory loss Endo Denies cold intolerance, Denies fatigue, Denies heat intolerance, Denies polydipsia and Denies polyuria Aller/Immun Denies wheezing Physical exam (Primary Care) Vital Signs: Last Vital Signs Temp 97 F 11/26/23 15:07 Pulse 87 11/26/23 15:07 Resp 13 11/26/23 15:07 BP 116/70 11/26/23 15:07 Pulse Ox 98 11/26/23 15:07 Oxygen Delivery Method Room Air 11/26/23 15:07 BMI result Body Mass Index 36.3 Tobacco/Smoking Status: Tobacco use Status Tobacco use date assessed 10/29/23 11/26/23 15:13 Patient Tobacco Use Status Never used Tobacco 11/26/23 15:13 e-Cigarette/Vaping Use Never Used 11/26/23 15:13 Thrive Assessment: Date of Thrive Assessment Date Thrive assessed 10/29/23 11/26/23 15:13 Const Other: General: no acute distress and well developed Nutritional Appearance: well nourished Orientation/consciousness: patient oriented x3 HENMT Head: Yes normocephalic and Yes atraumatic Eyes General: appearance normal, both eyes and all related structures Pupils: Equal, round and reactive pupils present EOM: EOMs intact bilaterally Resp Effort & Inspection: normal respiratory effort Auscultation: clear to auscultation bilaterally Cardio Rate: regular rate Rhythm: regular rhythm Heart sounds: S1 normal heart sound present, S2 normal heart sound present, no gallops, no murmurs and no rubs GI Palpation (GI): No Abdominal aortic bruit present, Soft to palpation, nontender, No hepatosplenomegaly present and No Rebound tenderness present Auscultation: normal bowel sounds General: Yes no CVA tenderness Back/Spine/Pelvis Back: no CVA tenderness Cervical Spine: cervical ROM normal and No Cervical spine tenderness Thoracic/Lumbar Spine: thoraco-lumbar ROM normal, No pain with thoraco-lumbar ROM, No thoracic spinal tenderness and No lumbar spinal tenderness Extrem General: Yes normal to inspection, No edema and No calf tenderness Skin General: warm and dry. Normal skin color. Normal skin turgor Neuro General: patient oriented x3, gait normal and no focal neuro deficit Cranial nerves: Yes Equal, round and reactive pupils present Cognition (Neuro): normal cognition Gait exam (Neuro): Normal gait present Sensory Exam: No Sensory deficit (Neuro) Psych Appearance: grossly normal Affect: normal affect Attitude: cooperative Thought process: Normal thought process present Assessment and Plan Assessment & Plan (1) Hypertension: Code(s): I10 - Essential (primary) hypertension Qualifiers: Hypertension type: primary hypertension Qualified Code(s): I10 - Essent ial (primary) hypertension Plan: Blood pressure is 116/70, within goal of less than 130/80 Continue current treatment regimen Low-sodium diet and routine exercise encouraged Follow-up in 3 months for hypertension and diabetes Return sooner with symptoms or concerns Verbalized understanding and agreed with treatment plan Coding Level of Care Code Est Pt Level 3 (71714) Diagnoses Primary hypertension I10 Hypertension type: primary hypertension
== END 2023-11-26 15:27 | disposition home or self-care (01) ==
PROVIDERS: PCP Nurse Practitioner Family; Visit Provider Nurse Practitioner Family
DX: I10 Essential (primary) hypertension (principal)
CPT/HCPCS: 99213

== ENCOUNTER 2023-11-29 11:17 | Outpatient (REF) | payer OTHER, SELFPAY | END 2023-11-29 11:18 | disposition home or self-care (01) | LOC: HO.LAB 11:17 | PROVIDERS: PCP Nurse Practitioner Family; Visit Provider Advanced Practice Midwife | DX: N95.0 Postmenopausal bleeding (principal); R93.5 Abnormal findings on diagnostic imaging of other abdominal regions, including retroperitoneum; D21.9 Benign neoplasm of connective and other soft tissue, unspecified; R93.89 Abnormal findings on diagnostic imaging of other specified body structures; Z71.2 Person consulting for explanation of examination or test findings | CPT/HCPCS: 58100; 81025; 88305 ==

== ENCOUNTER 2023-11-29 11:17 | Outpatient (AMB) | payer OTHER, SELFPAY ==
[2023-11-29 11:18] VITALS: BP 118/80; BMI 36.2
--- NOTE | 2023-11-29 11:18 | MHC.OFFVIS ---
Intake Vital Signs 11/29/23 11:18 Height 5 ft 4 in Weight 211 lb BMI 36.2 BP 118/80 Intake Visit Reasons: Ultrasound Follow up/EMB/45 min per BM Narcotics And/Or Vice Detective: Narcotics And/Or Vice Detective Present (Azalia) Allergies No Known Allergies Allergy (Verified 11/29/23 11:19) HPI HPI Comments History of Present Illness Details Patient is here today for a follow-up ultrasound in EMB. History of postmenopausal bleeding in July. [facility] Medical History (Updated 11/29/23 @ 12:11 by Yadira Mars CNM) Leiomyoma Diabetes type 2, controlled Thalassemia TIA (transient ischemic attack) Surgical History History of esophagogastroduodenoscopy (EGD) H/O colonoscopy Hx of cholecystectomy Family History Maternal Grandmother Colon cancer Diabetes High blood pressure Stroke Father Abnormal heart rhythm High blood pressure Paternal Grandmother Kidney disease Family/Other Breast cancer Social History Household Members: Spouse and Children Housing: Apartment Are you a primary health careers instructor to a significant other at home: No Do you presently have visiting nurse or other home services: No Alcohol intake: current Alcohol intake frequency: holidays/special occasions only Patient Tobacco Use Status: Never used Tobacco e-Cigarette/Vaping Use: Never Used service: No Current occupational status: employed Current occupation: [employer] Current occupational exposures/hazards: No Cognitive needs: No Hearing needs: No Vision needs: No Female Reproductive History Menstrual Age of Menarche: 10 Review of Systems Const All systems reviewed & are unremarkable except as noted in HPI and below Physical Exam Vital Signs: Last Vital Signs BP 118/80 11/29/23 11:18 BMI result Body Mass Index 36.2 Const General: cooperative, healthy appearing and no acute distress Orientation/consciousness: patient oriented x3 GI Inspection: Yes normal to inspection Palpation (GI): Soft to palpation and Other GI palpation findings present (Nontender) Rectal Exam - Female: visual inspection normal General: Yes bladder normal to palpation External Female Exam: normal appearance of the urethra Speculum Exam - Vagina: normal appearance of the vagina, normal palpation and normal vaginal discharge Speculum Exam - Cervix: normal appearance of the cervix (Deviated to the left) and normal palpation Bimanual exam- vagina & uterus: normal bimanual exam, normal palpation, uterine size normal, bladder normal to palpation, normal palpation, uterine shape normal, non-tender and Uterus displaced (To the left) Bimanual Exam- Adnexa, other: normal adnexae Neuro General: patient oriented x3 Office Procedures Endometrial Biopsy Details: The patient is here today for an endometrial biopsy due to AUB to rule out any pathology including atypical, hyperplasia or cancer cells of the uterus. She was counseled regarding anticipatory guidance for the procedure including the risks for pain, infection, bleeding, perforation, potential injury to the tissues may include the cervix, uterus, tubes, bladder and bowels. These injuries may include further treatment and evaluation including surgery, blood transfusions, antibiotics, hospitalizations and anesthesia. Permanent injury and scarring can occur. She was consented for the procedure, and the consent forms were signed. She is agreeable to have the procedure today. All questions were answered. Endometrial Biopsy Procedure: The patient was placed in the dorsal lithotomy position and a sterile speculum inserted. Using aseptic technique for the procedure. The cervix was cleansed with Betadine x 3 swabs. A single toothed tenaculum was placed on the cervix for stabilization and the uterus was sounded to 8cm with a 4mm pipelle for 3 passes. Minimal bleeding was observed. The tissue sample was placed in formalin in a patient labeled container by staff assisting and sent to the pathology department for processing and interpretation. The patient tolerate the procedure well and was in good condition when leaving the department. Endometrial Biopsy Post Procedure Care: Nothing in the vagina including: tampons, douching or intimacy until all the bleeding has subsided. There may be some post procedure bleeding for several days, this bleeding is usually light and may turn to a light brown or pink color. Mild cramps may occurs. Nothing in the vaginal including: tampons, douching, or intimacy until all the bleeding has subsided. You may take an over the counter mild analgesic such as Tylenol or Advil (if no allergies) per the manufactures recommendation on dosing, frequency, and follow the directions completely. Call the office if any: fever (over 100.4), flu like symptoms, abdominal pain (worse than cramping), foul smelling, infected appearing vaginal discharge, or heavy bleeding. If indicated: Use condoms to prevent and STI's, and only after the bleeding has stopped completely. Return to the office in 2 weeks for results and plan of care. This note is constructed using voice recognition software. While every effort has been made to ensure accuracy, flatwork ironer errors may have been included. [id number] Biopsy Results AMB Test Urine AMB Test Urine Negative Last Edit by JOCY Deras on 11/29/23 11:29 Results Reviewed Results Reviewed: Laboratory Last Values Tst Clinic Negative 11/29/23 11:27 [facility] Primary [facility] [id number] Ultrasound Report Signed Patient: Eliceo Nails MR#: [id number] : 1975 Acct:[id number] Age/Sex: 48 / F ADM Date: 10/23/23 Loc: HO.HMGCX Attending Dr: Yadira Mars CNM Ordering Physician: Yadira Mars CNM Date of Service: 10/23/23 Procedure(s): US pelvic and transvaginal Accession Number(s): [id number] cc: Yadira Mars CNM; Amalia Clancy CUSTOM APPLICATOR~ EXAMINATION: US PELVIS COMPLETE CLINICAL INFORMATION: Postmenopausal bleeding. COMPARISON: None. TECHNIQUE: Transabdominal and transvaginal imaging were performed. FINDINGS: The uterus is of normal size and echogenicity, measuring 9.2 x 6.0 x 6.4 cm. The uterus is anteverted. A poorly defined endometrium is identified measuring 2.9 cm. FIBROIDS: There is 1 fibroid seen. 1. Location: Anterior leftward fundus, subserosal. Size: 3.3 x 2.9 x 2.8 cm. Fibroid characteristics: Heterogeneously hypoechoic. Both ovaries are of normal size and echogenicity. The right ovary measures 2.8 x 2.0 x 2.0 cm for a volume of 5.6 mL. There are 1.1 cm and 1.6 cm simple physiologic follicles, which require no imaging follow-up. The left ovary measures 3.5 x 1.8 x 2.0 cm for a volume of 6.6 mL. The left ovary contains an 8 mm shadowing calcification. There is no pelvic free fluid. US/US pelvic and transvaginal IMPRESSION: 1. A uterine fibroid is seen, as detailed. 2. There is abnormal postmenopausal endometrial stripe thickening to is much is 2.9 cm. Gynecology evaluation and management is recommended, with consideration for tissue sampling, if clinically warranted. 3. An 8 mm left ovarian shadowing calcification is seen, raising the possibility of a dermoid tumor. Again, Gynecology evaluation and management are recommended. Dictated By: Bj Juárez MD Signed By: <Electronically signed by Bj Juárez MD in OV> 10/26/23 1400 DD/ 1434 TD/TT: Inspector Type: AURELIA Assessment & Plan Assessment & Plan (1) Abnormal ultrasound of ovary: Code(s): R93.5 - Abnormal findings on diagnostic imaging of other abdominal regions, including retroperitoneum (2) Leiomyoma: Code(s): D21.9 - Benign neoplasm of connective and other soft tissue, unspecified (3) Postmenopausal bleeding: Code(s): N95.0 - Postmenopausal bleeding (4) Endometrial thickening on ultrasound: Code(s): R93.89 - Abnormal findings on diagnostic imaging of other specified body structures (5) Leiomyoma: Code(s): D21.9 - Benign neoplasm of connective and other soft tissue, unspecified (6) Encounter to discuss test results: Code(s): Z71.2 - Person consulting for explanation of examination or test findings Plan Counseled re: Leiomyoma: common pelvic neoplasm. Differential diagnosis-may include leiomyosarcoma which is a rare uterine sarcoma 3-7/100,000, difficult to distinguish from fibroids on ultrasound from uterine sarcoma's. Unlikely any single test will have a highly positive predictive value. Hysterectomy is not recommended for sole purpose of excluding malignant neoplasm. Report any PMB. Pelvic pressure, bloating, or pain. Expectant management follow up in 6 months, then yearly for stability. Referral to MD if indicated for level of care. Discussed: Left ovarian findings 8 mm shadowing possible dermoid, plan follow-up ultrasound in approximately 6 weeks interval from last scan, follow-up office visit to discuss results. If solid tumor we will need consult referral to [facility] for specialty care. All of her questions and concerns were addressed to the best of my ability and shared decision making. She is agreeable to the plan of care. This note is constructed using voice recognition software. While every effort has been made to ensure accuracy, flatwork ironer errors may have been included. Orders: Orders AMB HCG Urine Test Today Z32.02 - Encounter for test, result negative Surgical Today N95.0 - Postmenopausal bleeding US pelvic and transvaginal 01/21/24 R93.5 - Abnormal findings on diagnostic imaging of other abdominal regions, including retroperitoneum Coding Level of Care Code Procedure Only Diagnoses Abnormal ultrasound of ovary R93.5 Leiomyoma D21.9 Postmenopausal bleeding N95.0 Endometrial thickening on ultrasound R93.89 Encounter to discuss test results Z71.2 CPT Codes Endometrial Biopsy - CPT: 92293-Oxuvzcghntq Biopsy ([id number]) Comment Add modifier for complex visit regarding fibroid and abnormal ovarian findings
== END 2023-11-29 12:16 | disposition home or self-care (01) ==
LOC: HO.HWSW 11:17
PROVIDERS: PCP Nurse Practitioner Family; Visit Provider Advanced Practice Midwife
DX: R93.5 Abnormal findings on diagnostic imaging of other abdominal regions, including retroperitoneum (principal); D21.9 Benign neoplasm of connective and other soft tissue, unspecified; N95.0 Postmenopausal bleeding; R93.89 Abnormal findings on diagnostic imaging of other specified body structures; Z71.2 Person consulting for explanation of examination or test findings; Z32.02 Encounter for pregnancy test, result negative
CPT/HCPCS: 58100

== ENCOUNTER 2023-12-18 14:50 | Outpatient (REF) | payer OTHER, SELFPAY ==
--- NOTE | ~2023-12-18 | MM_ITS ---
EXAMINATION: MM DIAGNOSTIC DIGITAL BREAST TOMOSYNTHESIS, RIGHT CLINICAL INFORMATION: Follow-up calcifications seen on screening exam lower inner quadrant right breast, middle one third. COMPARISON: Mammography: 11/23/2023, 08/20/2015 ([place], [place]). TECHNIQUE: Digital breast tomosynthesis is performed. 2D images are generated from the tomosynthesis. The following views are obtained: 3-D full-field digital right ML view, as well as 2-D spot magnification right CC and ML views. FINDINGS: There are scattered areas of fibroglandular density (ACR BI-RADS breast composition Category b). There is a group of somewhat amorphous appearing fingerprint-like calcifications in the lower inner right breast, middle one third, which cannot be definitively classified as benign. They are indeterminant, and stereotactic biopsy is recommended. These could not definitively be seen on 2015 exam. No additional suspicious abnormalities noted within the right breast. MM/MM tomosynthesis added views R IMPRESSION: Indeterminate calcifications in the right breast lower inner quadrant, middle one third, for which stereotactic biopsy is recommended. Findings and recommendations were discussed with the patient by the technologist. ASSESSMENT: BI-RADS BI-RADS 4 - Suspicious finding RECOMMENDATION: Biopsy recommended
== END 2023-12-18 14:51 | disposition home or self-care (01) ==
LOC: HO.MAMMO 14:50
PROVIDERS: PCP Nurse Practitioner Family; Visit Provider Advanced Practice Midwife
DX: R92.1 Mammographic calcification found on diagnostic imaging of breast (principal)
CPT/HCPCS: 77061; 77065

== ENCOUNTER → 2023-12-18 15:00 | Outpatient (BNV) | payer OTHER, SELFPAY | PROVIDERS: PCP Nurse Practitioner Family; Visit Provider Radiology Diagnostic Radiology | DX: R92.1 Mammographic calcification found on diagnostic imaging of breast (principal) | CPT/HCPCS: 77061; 77065 ==

== ENCOUNTER 2023-12-20 08:27 | Outpatient (AMB) | payer OTHER, SELFPAY ==
--- NOTE | 2023-12-20 08:34 | A.OFFVIS_ITS ---
Intake Vital Signs 12/20/23 08:44 Height 5 ft 4 in Weight 211 lb BMI 36.2 BP 143/87 H Blood Pressure Location Rt brachial Position Sitting Pulse 80 Intake Visit Reasons: Stereo biopsy Left breast for calcifications Intake Note: This patient presents for a stereotactic biopsy consult for left breast calcifications. Patient c/o; reports no breast complaints at this time. Certified Phlebotomy Technician Required: No Accompanied by: Other Relationship Allergies No Known Allergies Allergy (Verified 12/20/23 08:47) Medication List - Last Reconciled 12/20/23 by Maxim Raymond MD amlodipine 10 mg PO DAILY 90 days atorvastatin 20 mg PO DAILY 3 months blood sugar diagnostic (FreeStyle Lite Strips) CHECK BLOOD SUGAR DAILY NEEDED blood-glucose meter (FreeStyle Lite Meter kit) As directed folic acid 1 mg PO DAILY 3 months hydrochlorothiazide 25 mg PO DAILY 3 months lancets (FreeStyle Lancets) check blood sugar daily and daily as needed losartan 100 mg PO DAILY 3 months metformin 500 mg PO BID 30 days Is last menstrual period known: Yes (several years ago ) Do you need a note to return to daycare/school/sports/work: No HPI Stereo biopsy Left breast for calcifications HPI Details 48-year-old female referred for right br east calcifications. She had a screening mammogram last week showing calcifications on the right breast so she was brought in for targeted mammogram earlier this week. This showed a group of amorphous appearing calcifications in the lower inner right breast so a stereotactic biopsy was recommended by the radiologist. She denies any palpable breast masses or any nipple or skin changes. Her menarche was at age of 10. Her 1st was at age of 18. She had 3 pregnancies. She had menopause at age of 46. She does describe a paternal aunt diagnosed to have breast cancer maybe at age of 49. [facility] Medical History (Updated 12/20/23 @ 09:04 by Maxim Raymond MD) Breast calcification, right Family history of breast cancer Morbid obesity Leiomyoma Diabetes type 2, controlled Thalassemia TIA (transient ischemic attack) Surgical History History of esophagogastroduodenoscopy (EGD) H/O colonoscopy Hx of cholecystectomy Family History Maternal Grandmother Colon cancer Diabetes High blood pressure Stroke Father Abnormal heart rhythm High blood pressure Paternal Grandmother Kidney disease Family/Other Breast cancer Paternal Aunt Breast cancer Family/Other Breast cancer Social History Household Members: Spouse and Children Housing: Apartment Are you a primary critical care cns to a significant other at home: No Do you presently have visiting nurse or other home services: No Alcohol intake: current Alcohol intake frequency: holidays/special occasions only Patient Tobacco Use Status: Never used Tobacco e-Cigarette/Vaping Use: Never Used service: No Current occupational status: employed 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 Current occupational exposures/hazards: No Cognitive needs: No Hearing needs: No Vision needs: No Female Reproductive History Menstrual Age of Menarche: 10 Total pregnancies: 3 Full term: 3 Review of Systems Const Denies chills and Denies fever(s) Card Denies chest pain, Denies dyspnea and Denies dyspnea on exertion Resp Denies cough, Denies dyspnea and Denies dyspnea on exertion GI Denies hematochezia and Denies change in bowel habits Denies hematuria Musc Denies back pain and Denies limited range of motion Neuro Denies focal weakness and Denies convulsions Psych Denies depression and Denies mood swings Physical Exam Vital Signs: Last Vital Signs Pulse 80 12/20/23 08:44 BP 143/87 H 12/20/23 08:44 BMI result Body Mass Index 36.2 Const General: comfortable and no acute distress Orientation/consciousness: patient oriented x3 Neck Neck: Yes no lymphadenopathy Chest Other: No palpable breast masses, no nipple or skin changes, no axillary lymphadenopathy Resp Auscultation: clear to auscultation bilaterally Cardio Rhythm: regular rhythm GI Palpation (GI): Soft to palpation, nontender and no guarding Neuro General: patient oriented x3 Assessment & Plan Assessment & Plan (1) Breast calcification, right: Code(s): R92.1 - Mammographic calcification found on diagnostic imaging of breast Plan: She has right breast calcifications as described above. A stereotactic biopsy had been recommended by the radiologist. I explained to her the technique of this procedure. I will see her again in the office next week to discuss the path report. (2) Family history of breast cancer: Code(s): Z80.3 - Family history of malignant neoplasm of breast Plan: She describes an aunt on her father's side who was diagnosed to have breast cancer. She thinks that this may have been at age of 49. I would instructed her to find out about the age and I will discuss the option of genetic counseling and genetic testing with her. Orders: Orders MM stereotactic biopsy LT 12/19/23 R92.1 - Mammographic calcification found on diagnostic imaging of breast Coding Level of Care Code New Pt Level 3 (12318) Diagnoses Breast calcification, right R92.1 Family history of breast cancer Z80.3
[2023-12-20 08:44] VITALS: BP 143/87; PULSE 80; BMI 36.2
== END 2023-12-20 09:05 | disposition home or self-care (01) ==
PROVIDERS: PCP Nurse Practitioner Family; Visit Provider Surgery
DX: R92.1 Mammographic calcification found on diagnostic imaging of breast (principal); Z80.3 Family history of malignant neoplasm of breast
CPT/HCPCS: 99203

== ENCOUNTER 2023-12-20 09:31 | Outpatient (REF) | payer OTHER, SELFPAY ==
--- NOTE | ~2023-12-20 | MM_ITS ---
EXAMINATION: STEREOTACTIC TOMOSYNTHESIS-GUIDED VACUUM-ASSISTED BREAST BIOPSY, RIGHT SPECIMEN RADIOGRAPH, RIGHT POST PROCEDURE DIGITAL MAMMOGRAM, RIGHT CLINICAL INFORMATION: Calcifications lower inner right breast, middle one third, suspicious for stereotactic biopsy.. COMPARISON: No recent exam available for comparison. Calcifications could not be definitively visualized on outside imaging 08/20/2015 from [facility]. TECHNIQUE/PROCEDURE: Informed consent was obtained from the patient after discussion of the benefits, risks, and alternatives to biopsy today. Patient appeared to understand. Gave opportunity for questions. Patient signed consent form. BIOPSY TABLE: [employer] Affirm Prone Biopsy System. LESION: Grouped calcifications right breast. LOCAL ANESTHESIA: 3 mL 1% lidocaine; 7 mL 1% lidocaine with epinephrine. DERMATOTOMY: Single skin karl dermatotomy performed. NEEDLE: Webdyniva 9-gauge vacuum assisted core biopsy device. APPROACH: medial lateral. TARGETING: Combination of digital breast tomosynthesis and stereotactic digital mammography used for targeting. CORES: 6. CLIP: Top hat placed. SPECIMEN RADIOGRAPH: Specimen radiograph is taken in separate room using digital mammography. The index calcifications are in the excised cores. A few calcifications remain adjacent to the biopsy site. POST PROCEDURE UNILATERAL DIGITAL MAMMOGRAM: The post biopsy mammogram is performed in separate room using separate digital mammography equipment from the biopsy procedure. CC, and ML views are obtained. There are scattered areas of fibroglandular density (breast composition category: b). The clip marker is in good and accurate position. The calcifications are markedly decreased at the biopsy site. No gross hematoma. The patient tolerated the procedure well. No immediate complications. Home instructions reviewed with the patient. Final pathology results are pending. MM/MM stereotactic biopsy RT IMPRESSION: 1. Digital tomosynthesis-guided core biopsy right breast calcifications with clip placement. 2. Specimen radiograph taken and post procedure mammogram. There is satisfactory and accurate positioning of the biopsy clip. 3. Final pathology results pending. An addendum report will be issued.
[2023-12-20] MEDS: Lidocaine HCl 1 % 20 ML VIAL 3 ML SUBCUT (11:02)
[2023-12-20] MEDS: Lidocaine HCl 1%/Epi 1:100,000 10 ML VIAL 17 ML SUBCUT (11:04)
[2023-12-20] MEDS: Sodium Bicarbonate 8.4% 50 MEQ/50 ML VIAL SUBCUT (11:05)
== END 2023-12-20 09:32 | disposition home or self-care (01) ==
LOC: HO.MAMMO 09:31
PROVIDERS: Absent Provider Advanced Practice Midwife; PCP Nurse Practitioner Family; Visit Provider Surgery
DX: R92.1 Mammographic calcification found on diagnostic imaging of breast (principal)
CPT/HCPCS: 19081; 88305; 99202; A4648

== ENCOUNTER → 2023-12-20 10:00 | Outpatient (BNV) | payer OTHER, SELFPAY | PROVIDERS: Absent Provider Advanced Practice Midwife; PCP Nurse Practitioner Family; Visit Provider Radiology Diagnostic Radiology | DX: R92.1 Mammographic calcification found on diagnostic imaging of breast (principal) | CPT/HCPCS: 19081; 77061; 77065 ==

== ENCOUNTER 2023-12-27 10:04 | Outpatient (AMB) | payer OTHER, SELFPAY ==
--- NOTE | 2023-12-27 10:26 | A.OFFVIS_ITS ---
Intake Intake Visit Reasons: Left breast calcifications, biopsy results Intake Note: Patient presents for biopsy results, Left breast calcifications. Pt c/o; reports no complaints at this time. Private Banker Required: No Accompanied by: Self / Same As Patient Allergies No Known Allergies Allergy (Verified 12/27/23 10:28) Medication List - Last Reconciled 12/27/23 by Maxim Raymond MD amlodipine 10 mg PO DAILY 90 days atorvastatin 20 mg PO DAILY 3 months blood sugar diagnostic (FreeStyle Lite Strips) CHECK BLOOD SUGAR DAILY NEEDED blood-glucose meter (FreeStyle Lite Meter kit) As directed folic acid 1 mg PO DAILY 3 months hydrochlorothiazide 25 mg PO DAILY 3 months lancets (FreeStyle Lancets) check blood sugar daily and daily as needed losartan 100 mg PO DAILY 3 months metformin 500 mg PO BID 30 days HPI Left breast calcifications, biopsy results HPI Details She underwent stereotactic biopsy for right breast calcifications last 12/20/2023. She says she tolerated procedure well. She denies significant complaints She is here to discuss the path report. [facility] Medical History Breast calcification, right Family history of breast cancer Morbid obesity Leiomyoma Diabetes type 2, controlled Thalassemia TIA (transient ischemic attack) Surgical History History of esophagogastroduodenoscopy (EGD) H/O colonoscopy Hx of cholecystectomy Family History Maternal Grandmother Colon cancer Diabetes High blood pressure Stroke Father Abnormal heart rhythm High blood pressure Paternal Grandmother Kidney disease Family/Other Breast cancer Paternal Aunt Breast cancer Family/Other Breast cancer Social History Household Members: Spouse and Children Housing: Apartment Are you a primary child day care center worker to a significant other at home: No Do you presently have visiting nurse or other home services: No Alcohol intake: current Alcohol intake frequency: holidays/special occasions only Patient Tobacco Use Status: Never used Tobacco e-Cigarette/Vaping Use: Never Used service: No Current occupational status: employed 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 Current occupational exposures/hazards: No Cognitive needs: No Hearing needs: No Vision needs: No Female Reproductive History Menstrual Age of Menarche: 10 Review of Systems Const Denies chills and Denies fever(s) Card Denies chest pain, Denies dyspnea and Denies dyspnea on exertion Resp Denies cough, Denies dyspnea and Denies dyspnea on exertion GI Denies hematochezia and Denies change in bowel habits Denies hematuria Musc Denies back pain and Denies limited range of motion Neuro Denies focal weakness and Denies convulsions Psych Denies depression and Denies mood swings Physical Exam Const General: comfortable and no acute distress Chest Other: No hematoma on biopsy site Resp Effort & Inspection: normal respiratory effort Cardio Rate: regular rate GI Palpation (GI): Soft to palpation and not firm Assessment & Plan Assessment & Plan (1) Breast calcification, right: Code(s): R92.1 - Mammographic calcification found on diagnostic imaging of breast Plan: Status post stereotactic biopsy. Her path report shows a fibroadenoma. I explained to her the benign nature of this pathology I did emphasized to her that she should continue with regular screening mammograms She also says that she is starting on her own weight loss program at home. I can follow her on a p.r.n. basis. Coding Level of Care Code Est Pt Level 2 (21051) Diagnoses Breast calcification, right R92.1
== END 2023-12-27 10:59 | disposition home or self-care (01) ==
PROVIDERS: PCP Nurse Practitioner Family; Visit Provider Surgery
DX: R92.1 Mammographic calcification found on diagnostic imaging of breast (principal)
CPT/HCPCS: 99212

== ENCOUNTER 2023-12-27 11:09 | Outpatient (REF) | payer OTHER, SELFPAY ==
--- NOTE | ~2023-12-27 | US_ITS ---
EXAMINATION: US PELVIS CLINICAL INFORMATION: Follow-up pelvic ultrasound for thickened endometrium. COMPARISON: Pelvic ultrasound 10/23/2023: There is abnormal postmenopausal endometrial stripe thickening to is much is 2.9 cm. Gynecology evaluation and management is recommended, with consideration for tissue sampling, if clinically warranted. TECHNIQUE: Ultrasound of the pelvis is performed using both transabdominal and transvaginal transducers along with Doppler. Transvaginal imaging is performed due to inadequate visualization transabdominally. FINDINGS: Uterus: The uterus is anteverted and measures 9.2 x 6.0 x 5.4 cm. The double wall endometrial thickness is 4 mm and now appears normal. The uterus is smooth in contour and has normal myometrial echogenicity. Two uterine fibroids are seen near the fundus with the largest having decreased in size measuring 2.2 x 2.3 x 2.4 cm (previously 3.3 x 2.9 x 2.8 cm). An additional fibroid adjacent to this is present measuring 1.2 x 1.5 x 1.7 cm. Adnexa: Both ovaries are visualized. There is normal color flow to the adnexa. There is no ovarian torsion. There is no pelvic ascites or fluid collection. Right ovary measures 2.5 x 1.0 x 2.1 cm for a volume of 2.9 mL and appears normal. Left ovary measures 2.6 x 1.1 x 1.3 cm for a volume 1.9 mL and demonstrates a 6.3 x 5 mm area of calcification seen previously thought to possibly represent a dermoid. US/US pelvic and transvaginal IMPRESSION: 1. The endometrium now appears normal. 2. Uterine fibroids. 3. Calcification in the left ovary, possibly related to a small dermoid.
== END 2023-12-27 11:10 | disposition home or self-care (01) ==
LOC: HO.US 11:09
PROVIDERS: PCP Nurse Practitioner Family; Visit Provider Advanced Practice Midwife
DX: R93.5 Abnormal findings on diagnostic imaging of other abdominal regions, including retroperitoneum (principal); R92.1 Mammographic calcification found on diagnostic imaging of breast; Z79.899 Other long term (current) drug therapy
CPT/HCPCS: 76830; 76856; 99212

== ENCOUNTER 2024-01-23 11:16 | Outpatient (AMB) | payer OTHER, SELFPAY ==
--- NOTE | 2024-01-23 11:19 | MHC.OFFVIS ---
Vital Signs 01/23/24 11:20 Height 5 ft 4 in Weight 211 lb BMI 36.2 BP 130/80 Intake Visit Reasons: Ultrasound Follow up/EMB results Banking Services Officer: Banking Services Officer Present Allergies No Known Allergies Allergy (Verified 01/23/24 11:20) Is last menstrual period known: Yes HPI Comments Details: Patient is here for an ultrasound follow-up. History of postmenopausal bleeding prior uterine biopsy and Pap smear was negative. History of endometrial hyperplasia with ultrasound, uterine fibroids, left ovarian lesion possible calcification or dermoid. [facility] Medical History (Updated 01/23/24 @ 12:19 by Yadira Mars CNM) Lesion of left ovary Endometrial hyperplasia Breast calcification, right Family history of breast cancer Morbid obesity Leiomyoma Diabetes type 2, controlled Thalassemia TIA (transient ischemic attack) Surgical History History of esophagogastroduodenoscopy (EGD) H/O colonoscopy Hx of cholecystectomy Family History Maternal Grandmother Colon cancer Diabetes High blood pressure Stroke Father Abnormal heart rhythm High blood pressure Paternal Grandmother Kidney disease Family/Other Breast cancer Paternal Aunt Breast cancer Family/Other Breast cancer Social History Household Members: Spouse and Children Housing: Apartment Are you a primary client care manager to a significant other at home: No Do you presently have visiting nurse or other home services: No Alcohol intake: current Alcohol intake frequency: holidays/special occasions only Patient Tobacco Use Status: Never used Tobacco e-Cigarette/Vaping Use: Never Used service: No Current occupational status: employed 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 Current occupational exposures/hazards: No Cognitive needs: No Hearing needs: No Vision needs: No Female Reproductive History Menstrual Age of Menarche: 10 Review of Systems Const All systems reviewed & are unremarkable except as noted in HPI and below Endo Reports no additional complaints Physical Exam Vital Signs: Last Vital Signs BP 130/80 01/23/24 11:20 BMI result Body Mass Index 36.2 Const General: cooperative, healthy appearing and no acute distress Psych Appearance: well kempt Attitude: cooperative Thought process: Normal thought process present Results Reviewed Results Reviewed: coby Close Pelvic/Transvag US (Signed) Kayode Mazariegos - 12/27/23 Stereotactic Breast Biopsy (Signed) Carlos Arnold - 12/20/23 Mammogram, Additional Views (Signed) Carlos Arnold - 12/18/23 Mammogram Screening (Signed) KrisVivienne - 11/23/23 Pelvic/Transvag US (Signed) Bj Juárez - 10/23/23 Launch?Image [place] [address] Ultrasound Report Signed Patient: Eliceo Nails MR#: [id number] : 1975 Acct:[id number] Age/Sex: 48 / F ADM Date: 12/27/23 Loc: HO.US Attending Dr: Yadira Mars CNM Ordering Physician: Yadira Mars CNM Date of Service: 12/27/23 Procedure(s): US pelvic and transvaginal Accession Number(s): [id number] cc: Yadira aMrs CNM; Amalia Clancy BREAKER UP~ EXAMINATION: US PELVIS CLINICAL INFORMATION: Follow-up pelvic ultrasound for thickened endometrium. COMPARISON: Pelvic ultrasound 10/23/2023: There is abnormal postmenopausal endometrial stripe thickening to is much is 2.9 cm. Gynecology evaluation and management is recommended, with consideration for tissue sampling, if clinically warranted. TECHNIQUE: Ultrasound of the pelvis is performed using both transabdominal and transvaginal transducers along with Doppler. Transvaginal imaging is performed due to inadequate visualization transabdominally. FINDINGS: Uterus: The uterus is anteverted and measures 9.2 x 6.0 x 5.4 cm. The double wall endometrial thickness is 4 mm and now appears normal. The uterus is smooth in contour and has normal myometrial echogenicity. Two uterine fibroids are seen near the fundus with the largest having decreased in size measuring 2.2 x 2.3 x 2.4 cm (previously 3.3 x 2.9 x 2.8 cm). An additional fibroid adjacent to this is present measuring 1.2 x 1.5 x 1.7 cm. Adnexa: Both ovaries are visualized. There is normal color flow to the adnexa. There is no ovarian torsion. There is no pelvic ascites or fluid collection. Right ovary measures 2.5 x 1.0 x 2.1 cm for a volume of 2.9 mL and appears normal. Left ovary measures 2.6 x 1.1 x 1.3 cm for a volume 1.9 mL and demonstrates a 6.3 x 5 mm area of calcification seen previously thought to possibly represent a dermoid. US/US pelvic and transvaginal IMPRESSION: 1. The endometrium now appears normal. 2. Uterine fibroids. 3. Calcification in the left ovary, possibly related to a small dermoid. Dictated By: Kayode Mazariegos MD Signed By: <Electronically signed by Kayode Mazariegos MD in OV> 12/31/23 0444 DD/ 1133 TD/TT: Assessment & Plan Assessment & Plan (1) Lesion of left ovary: Code(s): N83.9 - Noninflammatory disorder of ovary, fallopian tube and broad ligament, unspecified Category: Medical (2) Leiomyoma: Code(s): D21.9 - Benign neoplasm of connective and other soft tissue, unspecified (3) Encounter to discuss test results: Code(s): Z71.2 - Person consulting for explanation of examination or test findings (4) Endometrial hyperplasia: Code(s): N85.00 - Endometrial hyperplasia, unspecified (5) Postmenopausal bleeding: Code(s): N95.0 - Postmenopausal bleeding Plan Discussed: Ultrasound findings reviewed, advised would need to have medical management for endometrial hyperplasia for the prevention of atypia or other abnormal findings including up to the diagnosis of uterine cancer. Treat will would consist of a Mirena IUD and biopsies every 3-6 months, other procedures may include hysteroscopy D&C. Patient is interested in having surgical options for hysterectomy versus monitoring and maintaining an IUD in place and uterine sampling repeatedly. Referral placed to [facility] for MD evaluation, consultation. All of her questions and concerns were addressed to the best of my ability and shared decision making. She is agreeable to the plan of care. This note is constructed using voice recognition software. While every effort has been made to ensure accuracy, lockstitch tunnel elastic operator errors may have been included. Orders: Referrals DRIFT MINER Referral D21.9 - Benign neoplasm of connective and other soft tissue, unspecified, N83.9 - Noninflammatory disorder of ovary, fallopian tube and broad ligament, unspecified, N85.00 - Endometrial hyperplasia, unspecified, N95.0 - Postmenopausal bleeding Coding Level of Care Code Est Pt Level 3 (69381) Diagnoses Lesion of left ovary N83.9 Leiomyoma D21.9 Encounter to discuss test results Z71.2 Endometrial hyperplasia N85.00 Postmenopausal bleeding N95.0
[2024-01-23 11:20] VITALS: BP 130/80; BMI 36.2
== END 2024-01-23 12:22 | disposition home or self-care (01) ==
LOC: HO.HWS 11:16
PROVIDERS: PCP Nurse Practitioner Family; Visit Provider Advanced Practice Midwife
DX: N83.9 Noninflammatory disorder of ovary, fallopian tube and broad ligament, unspecified (principal); D21.9 Benign neoplasm of connective and other soft tissue, unspecified; Z71.2 Person consulting for explanation of examination or test findings; N85.00 Endometrial hyperplasia, unspecified; N95.0 Postmenopausal bleeding
CPT/HCPCS: 99213

== ENCOUNTER → 2024-01-23 11:16 | Outpatient (BNVA) | payer OTHER, SELFPAY | PROVIDERS: PCP Nurse Practitioner Family; Visit Provider Advanced Practice Midwife | DX: N83.9 Noninflammatory disorder of ovary, fallopian tube and broad ligament, unspecified (principal); N85.00 Endometrial hyperplasia, unspecified; N95.0 Postmenopausal bleeding; D21.9 Benign neoplasm of connective and other soft tissue, unspecified; Z71.2 Person consulting for explanation of examination or test findings | CPT/HCPCS: 99212 ==

== ENCOUNTER 2024-02-25 08:04 | Outpatient (AMB) | payer OTHER, SELFPAY ==
[2024-02-25 08:07] VITALS: BP 128/78; PULSE 71; RESP 14; TEMP 36.6; O2SAT 99; BMI 35.9
--- NOTE | 2024-02-25 08:07 | MHC.PC.OV ---
Vital Signs 02/25/24 08:07 Height 5 ft 4 in Weight 209 lb 6 oz BMI 35.9 BP 128/78 Blood Pressure Location Rt brachial Position Sitting Respiration 14 Pulse 71 Pulse Source Pulse Oximeter Temp 97.8 F Temp Source Temporal Artery Scan Pulse Oximetry (%) 99 Oxygen Delivery Method Room Air Intake Visit Reasons: 3 mos HTN, DM Application Packaging Consultant Required: No Accompanied by: Self / Same As Patient Allergies No Known Allergies Allergy (Verified 02/25/24 08:20) Medication List - Last Reconciled 02/25/24 by Amalia Clancy CNP amlodipine 10 mg PO DAILY 90 days atorvastatin 20 mg PO DAILY 3 months blood sugar diagnostic (FreeStyle Lite Strips) CHECK BLOOD SUGAR DAILY NEEDED blood-glucose meter (FreeStyle Lite Meter kit) As directed folic acid 1 mg PO DAILY 3 months hydrochlorothiazide 25 mg PO DAILY 3 months lancets (FreeStyle Lancets) check blood sugar daily and daily as needed losartan 100 mg PO DAILY 3 months metformin 500 mg PO BID 30 days Tobacco use date assessed: 10/29/23 Dental Screening Dental Screen Date: 11/26/23 HPI HPI Comments History of Present Illness Details 48-year-old female presents for hypertension and diabetes follow-up She admits to taking her medications as prescribed without adverse reactions She offers no complaints and denies acute symptoms at this time She states that she has been maintaining a vegetarian diet and exercising routinely. However, she has not had success with weight loss She notes that she was evaluated at [facility] weight management clinic and the only option provided was weight lost surgery. However, her health plan does not cover weight loss. She is interested dietitian referral [facility] Medical History Lesion of left ovary Endometrial hyperplasia Breast calcification, right Family history of breast cancer Morbid obesity Leiomyoma Diabetes type 2, controlled Thalassemia TIA (transient ischemic attack) Surgical History History of esophagogastroduodenoscopy (EGD) H/O colonoscopy Hx of cholecystectomy Family History Maternal Grandmother Colon cancer Diabetes High blood pressure Stroke Father Abnormal heart rhythm High blood pressure Paternal Grandmother Kidney disease Family/Other Breast cancer Paternal Aunt Breast cancer Family/Other Breast cancer Social History Household Members: Spouse and Children Housing: Apartment Are you a primary out of school hours care worker to a significant other at home: No Do you presently have visiting nurse or other home services: No Alcohol intake: current Alcohol intake frequency: holidays/special occasions only Patient Tobacco Use Status: Never used Tobacco e-Cigarette/Vaping Use: Never Used service: No Current occupational status: employed 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 Lester Olivera, Laura Lepe, Ho Slater and colleagues, with an educational chelsey from [employer]. Review of Systems Const Details: Const Denies chills, Denies fatigue, Denies fever(s), Denies headache(s) and Denies weakness ENT Denies dizziness and Denies headache(s) Card Denies chest pain, Denies lightheadedness, Denies dyspnea and Denies other (Palpitations) Resp Denies cough, Denies dyspnea, Denies wheezing and Denies other ( shortness of breath) GI Denies abdominal pain, Denies melena, Denies hematochezia, Denies change in bowel habits, Denies dyspepsia and Denies nausea Denies hematuria and Denies dysuria Musc Denies abnormal gait, Denies myalgias, Denies arthralgias, Denies numbness and Denies tingling Skin/Breast Denies rash, Denies unusual bruising and Denies wounds Neuro Denies abnormal gait, Denies dizziness, Denies headache(s), Denies memory loss, Denies numbness, Denies Sensory deficit (Neuro), Denies tingling and Denies weakness Psych Denies anxiety, Denies depression, Denies memory loss Endo Denies cold intolerance, Denies fatigue, Denies heat intolerance, Denies polydipsia and Denies polyuria Aller/Immun Denies wheezing Physical exam (Primary Care) Vital Signs: Last Vital Signs Temp 97.8 F 02/25/24 08:07 Pulse 71 02/25/24 08:07 Resp 14 02/25/24 08:07 BP 128/78 02/25/24 08:07 Pulse Ox 99 02/25/24 08:07 Oxygen Delivery Method Room Air 02/25/24 08:07 BMI result Body Mass Index 35.9 Tobacco/Smoking Status: Tobacco use Status Tobacco use date assessed 10/29/23 02/25/24 08:08 Patient Tobacco Use Status Never used Tobacco 02/25/24 08:08 e-Cigarette/Vaping Use Never Used 02/25/24 08:08 Thrive Assessment: Date of Thrive Assessment Date Thrive assessed 10/29/23 02/25/24 08:08 Const Other: General: no acute distress and well developed Nutritional Appearance: well nourished Orientation/consciousness: patient oriented x3 HENMT Head: Yes normocephalic and Yes atraumatic Eyes General: appearance normal, both eyes and all related structures Pupils: Equal, round and reactive pupils present EOM: EOMs intact bilaterally Resp Effort & Inspection: normal respiratory effort Auscultation: clear to auscultation bilaterally Cardio Rate: regular rate Rhythm: regular rhythm Heart sounds: S1 normal heart sound present, S2 normal heart sound present, no gallops, no murmurs and no rubs GI Palpation (GI): No Abdominal aortic bruit present, Soft to palpation, nontender, No hepatosplenomegaly present and No Rebound tenderness present Auscultation: normal bowel sounds General: Yes no CVA tenderness Back/Spine/Pelvis Back: no CVA tenderness Cervical Spine: cervical ROM normal and No Cervical spine tenderness Thoracic/Lumbar Spine: thoraco-lumbar ROM normal, No pain with thoraco-lumbar ROM, No thoracic spinal tenderness and No lumbar spinal tenderness Extrem General: Yes normal to inspection, No edema and No calf tenderness Skin General: warm and dry. Normal skin color. Normal skin turgor Neuro General: patient oriented x3, gait normal and no focal neuro deficit Cranial nerves: Yes Equal, round and reactive pupils present Cognition (Neuro): normal cognition Gait exam (Neuro): Normal gait present Sensory Exam: No Sensory deficit (Neuro) Psych Appearance: grossly normal Affect: normal affect Attitude: cooperative Thought process: Normal thought process present Results AMB Hemoglobin A1c AMB Hemoglobin A1c 6.2 % Last Edit by DANIELLE Vogel on 02/25/24 08:25 Assessment and Plan Assessment & Plan (1) Hypertension: Code(s): I10 - Essential (primary) hypertension Qualifiers: Hypertension type: primary hypertension Qualified Code(s): I10 - Essential (primary) hypertension Plan: Blood pressure is 128/78, within goal of less than 130/80 Continue current treatment regimen Low-sodium diet encouraged Follow-up in 3 months for hypertension and diabetes or sooner with symptoms or concerns Verbalized understanding and agreed with treatment plan (2) Diabetes type 2, controlled: Code(s): E11.9 - Type 2 diabetes mellitus without complications Plan: A1c today is 6.2%, within goal of less than 7.0% Will order Ozempic 0.25 mg weekly. Advised to take as prescribed. Instructed on the risks, benefits, and potential adverse reactions of the medication. May help with weight loss Continue to take metformin 500 mg twice daily ADA diet and routine exercise encouraged Will recheck A1c in 3 months Verbalized understanding and agreed with treatment plan (3) BMI 39.0-39.9,adult: Code(s): Z68.39 - Body mass index [BMI] 39.0-39.9, adult Plan: She has been maintaining a vegetarian diet and exercising routinely. However, she has not been able to lose weight She currently weighs 209 lb, BMI is 35.9 Advised to take Ozempic as prescribed Healthy diet and routine exercise encouraged Referred to [facility] dietitian Follow-up in 1 month or sooner with symptoms Verbalized understanding and agreed with the plan Orders: Orders AMB Hemoglobin A1c Today E11.9 - Type 2 diabetes mellitus without complications Referrals [facility] Referral Z68.39 - Body mass index [BMI] 39.0-39.9, adult Medications: New semaglutide (Ozempic) for 4 weeks 0.25 mg (0.368 mL) subcut QWEEK 4 weeks 1.472 mL 1RF Coding Level of Care Code Est Pt Level 4 (49014) Complex EM visit Add On G2211 Diagnoses Primary hypertension I10 Hypertension type: primary hypertension Diabetes type 2, controlled E11.9 BMI 39.0-39.9,adult Z68.39
== END 2024-02-25 08:32 | disposition home or self-care (01) ==
PROVIDERS: PCP Nurse Practitioner Family; Visit Provider Nurse Practitioner Family
DX: I10 Essential (primary) hypertension (principal); E11.9 Type 2 diabetes mellitus without complications; Z68.39 Body mass index [BMI] 39.0-39.9, adult
CPT/HCPCS: 83036; 99214; G2211

== ENCOUNTER 2024-03-06 08:24 | Outpatient (AMB) | payer OTHER, SELFPAY ==
[2024-03-06 08:40] VITALS: BP 166/90; PULSE 76; TEMP 36.6; O2SAT 97
--- NOTE | 2024-03-06 08:40 | AM.OFFWIN_ITS ---
Intake Vital Signs 03/06/24 08:40 Height 5 ft 4 in BP 166/90 H Blood Pressure Location Rt brachial Position Sitting Pulse 76 Pulse Source Pulse Oximeter Temp 98 F Temp Source Oral Pulse Oximetry (%) 97 Oxygen Delivery Method Room Air Intake Visit Reasons: EP sciatic nerve pain Intake Note: pt is here for sciatic nerve pain Patient Tobacco Use Status: Never used Tobacco Allergies No Known Allergies Allergy (Verified 03/06/24 08:41) Do you need a note to return to daycare/school/sports/work: No HPI HPI Comments History of Present Illness Details Patient is a 48-year-old female complaining of right leg pain x1 week. She describes the pain as a throbbing which is worse when she straightens her leg while sitting or makes other movements like stepping off of a curb, then the pain becomes sharp shooting pain. She also has some tingling in her toes. She has been trying to rest it ice it and do stretching exercises that she found on the Internet. But the pain has gotten really bad so she decided to come in today. She also notes she did not take her blood pressure medication yet this morning. She denies loss of control of her bladder or bowel. [facility] Medical History Lesion of left ovary Endometrial hyperplasia Breast calcification, right Family history of breast cancer Morbid obesity Leiomyoma Diabetes type 2, controlled Thalassemia TIA (transient ischemic attack) Surgical History History of esophagogastroduodenoscopy (EGD) H/O colonoscopy Hx of cholecystectomy Family History Maternal Grandmother Colon cancer Diabetes High blood pressure Stroke Father Abnormal heart rhythm High blood pressure Paternal Grandmother Kidney disease Family/Other Breast cancer Paternal Aunt Breast cancer Family/Other Breast cancer Social History Household Members: Spouse and Children Housing: Apartment Are you a primary respiratory care faculty to a significant other at home: No Do you presently have visiting nurse or other home services: No Alcohol intake: current Alcohol intake frequency: holidays/special occasions only Patient Tobacco Use Status: Never used Tobacco e-Cigarette/Vaping Use: Never Used service: No Current occupational status: employed 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 Current occupational exposures/hazards: No Cognitive needs: No Hearing needs: No Vision needs: No Female Reproductive History Menstrual Age of Menarche: 10 Review of Systems Const All systems reviewed & are unremarkable except as noted in HPI and below Physical Exam Vital Signs: Last Vital Signs Temp 98 F 03/06/24 08:40 Pulse 76 03/06/24 08:40 BP 166/90 H 03/06/24 08:40 Pulse Ox 97 03/06/24 08:40 Oxygen Delivery Method Room Air 03/06/24 08:40 Const General: cooperative, healthy appearing and comfortable Orientation/consciousness: patient oriented x3 HEENT Head: Yes normal to inspection General nose exam: Normal external nose present Face and sinus: Yes normal facial exam Eyes General: appearance normal, both eyes and all related structures Resp Effort & Inspection: normal respiratory effort and able to speak in complete sentences General: Yes no CVA tenderness Back/Spine/Pelvis Back: no CVA tenderness Cervical Spine: No Cervical spine tenderness Thoracic/Lumbar Spine: thoracic and lumbar spine normal to inspection, No paraspinal muscle tenderness, No thoracic spinal tenderness, No lumbar spinal tenderness and straight leg raise positive right Neuro General: patient oriented x3 Extrem Other: Assessment & Plan Assessment & Plan (1) Right sciatic nerve pain: Code(s): M54.31 - Sciatica, right side Plan: Recommended taking steroid bursts for only 4 days, using Aleve with it and continuing to do the online exercises she found as they seem to be helping her. If she loses control of her bladder or bowels, she was told to go to the e mergency department immediately. (2) Elevated blood pressure reading in office with diagnosis of hypertension: Code(s): I10 - Essential (primary) hypertension Plan: Likely situational based on pain she is experiencing but did remind patient to go home and take her blood pressure medication because it is very dangerous to leave her blood pressure as elevated as it is right now. She understands and agrees with plan. Plan See above Medications: New prednisone 40 mg (2 x 20 mg) PO DAILY 8 tabs 0RF Coding Level of Care Code Est Pt Level 4 (13788) Diagnoses Right sciatic nerve pain M54.31 Elevated blood pressure reading in office with diagnosis of hypertension I10
== END 2024-03-06 09:51 | disposition home or self-care (01) ==
PROVIDERS: PCP Nurse Practitioner Family; Visit Provider Physician Assistant
DX: M54.31 Sciatica, right side (principal); I10 Essential (primary) hypertension
CPT/HCPCS: 99214

== ENCOUNTER 2024-03-12 10:03 | Outpatient (AMB) | payer OTHER, SELFPAY ==
--- NOTE | 2024-03-12 10:05 | A.OFFVIS_ITS ---
VS Expanded 03/12/24 10:07 03/12/24 10:19 Height 5 ft 4 in 5 ft 4 in Weight 212 lb 1.355 oz 212 lb BMI 36.4 36.4 Intake Visit Reasons: Obesity/CONFIRMED Allergies No Known Allergies Allergy (Verified 03/06/24 08:41) Nutrition Presentation Details: Pt presents for MNT for obesity. the Pt was referred by PCP Dr. Aston Sena Pt reports working on reducing red meats for about 6 months coffee creamer ( flavored creamer caramel/hazelnut) first meal 12: breakfast meal (eggs/vegetables/cheese or veggie sausage and toast (butter) 1pm: soup and salad (beans/broccoli/cheddar) , cottage cheese in the salad , dressing , water fruit * not including yogurt: 0-1/d vegetables: pastries/cookies: 0-1 BS Monitoring Most Recent Diabetes Results: No Data to Display FHP-Ebkiytb-Wa.Jeor Equation Height: 5 ft 4 in Weight: 212 lb Resting Metabolic Rate: 1574.57 Calculated Activity Level: Sedentary Calories Needed to Maintain Weight: 1889.48 Diagnosis Nutrition problem #1: food nutri know defi As related to (etiology) #1: diagnosis As evidenced by (sign/symptom) #1: knowledge deficit of diet [facility] Medical History Lesion of left ovary Endometrial hyperplasia Breast calcification, right Family history of breast cancer Morbid obesity Leiomyoma Diabetes type 2, controlled Thalassemia TIA (transient ischemic attack) Surgical History History of esophagogastroduodenoscopy (EGD) H/O colonoscopy Hx of cholecystectomy Family History Maternal Grandmother Colon cancer Diabetes High blood pressure Stroke Father Abnormal heart rhythm High blood pressure Paternal Grandmother Kidney disease Family/Other Breast cancer Paternal Aunt Breast cancer Family/Other Breast cancer Social History Household Members: Spouse and Children Housing: Apartment Are you a primary respiratory care assistant to a significant other at home: No Do you presently have visiting nurse or other home services: No Alcohol intake: current Alcohol intake frequency: holidays/special occasions only Patient Tobacco Use Status: Never used Tobacco e-Cigarette/Vaping Use: Never Used service: No Current occupational status: employed 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[employer] Current occupational exposures/hazards: No Cognitive needs: No Hearing needs: No Vision needs: No Female Reproductive History Menstrual Age of Menarche: 10 Assessment & Plan Assessment & Plan (1) Morbid obesity: Code(s): E66.01 - Morbid (severe) obesity due to excess calories Category: Medical Plan: Wt: 96 Kg ( 03/2024 ) Est kcal needs as per MSJ: 1900 (40% carb, 30% protein/fat) Est fluid needs as per 25-30 ml/d: 2900 Est prot per day as per 1 g/kg bw: 96 Recommend fiber intake : 8-10 g per day and gradually increase to 25-28 g per day for women and 35-38 g for men or as tolerated Recommend sodium intake per day : less than 2000 mg Educated patient on: ( R = reviewed V = verbalizes understanding N/R = needs review N/A = not applicable * Food sources of carbohydrate, adequate serving sizes and its role in various health conditions: R * Differences between complex carbohydrates a simple carbohydrates, role of fiber in diet: R * Lean protein sources of foods: R * Differences between types of fats and role in diet (mono on saturated fat fatty acids, saturated fatty acids, trans fats): R V N/R * Food sources of sodium in salt and healthy modifications for heart health in kidney health: R V R/V * Vitamins and minerals: R V N/R * Healthy plate method concept: R V N/R * Physical activity: Benefits a precaution: R V N/R * Mindful eating : R Patient Instructions: Follow healthy plate method, reducing on total carb to 60 g per meal , 3 meals/day see meal ideas Coding Level of Care Code Nutr Indiv Intake (60400) Diagnoses Morbid obesity E66.01 Time Spent (min) 30
[2024-03-12 10:07] VITALS: BMI 36.4
[2024-03-18 08:43] VITALS: BMI 36.4
== END 2024-03-12 10:48 | disposition home or self-care (01) ==
PROVIDERS: PCP Nurse Practitioner Family; Visit Provider Dietitian, Registered
DX: E66.01 Morbid (severe) obesity due to excess calories (principal)

== ENCOUNTER → 2024-03-12 10:03 | Outpatient (BNVA) | payer OTHER, SELFPAY | PROVIDERS: PCP Nurse Practitioner Family; Visit Provider Dietitian, Registered | DX: E66.01 Morbid (severe) obesity due to excess calories (principal); Z68.36 Body mass index [BMI] 36.0-36.9, adult; Z71.3 Dietary counseling and surveillance | CPT/HCPCS: 97802 ==

== ENCOUNTER 2024-04-01 09:25 | Outpatient (AMB) | payer OTHER, SELFPAY ==
--- NOTE | 2024-04-01 09:27 | MHC.PC.OV ---
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: No Is last menstrual period known: No Post menopausal: No Patient : No Allergies No Known Allergies Allergy (Verified 04/01/24 09:47) Medication List - Last Reconciled 04/01/24 by Amalia Clancy CNP atorvastatin 20 mg PO DAILY 3 months blood sugar diagnostic (FreeStyle Lite Strips) CHECK BLOOD SUGAR DAILY NEEDED blood-glucose meter (FreeStyle Lite Meter kit) As directed folic acid 1 mg PO DAILY 3 months hydrochlorothiazide 25 mg PO DAILY 3 months lancets (FreeStyle Lancets) check blood sugar daily and daily as needed losartan 100 mg PO DAILY 3 months metformin 500 mg PO BID 30 days Tobacco use date assessed: 10/29/23 Dental Screening Dental Screen Date: 04/01/24 Did you have a dental visit in the last 12 months?: Yes Did you have a dental problem in the last 6 months where you did not have access to dental care?: No Was dental information given to patient?: Patient has dentist HPI HPI Comments History of Present Illness Details 48-year-old female presents for weight management follow-up Ozempic was prescribed at her last visit to help with loss. However, her health plan declined coverage She continues to follow [facility] dietitian She generally eats healthy and maintains a healthy lifestyle No acute symptoms at this time [facility] Medical History Lesion of left ovary Endometrial hyperplasia Breast calcification, right Family history of breast cancer Morbid obesity Leiomyoma Diabetes type 2, controlled Thalassemia TIA (transient ischemic attack) Surgical History History of esophagogastroduodenoscopy (EGD) H/O colonoscopy Hx of cholecystectomy Family History Maternal Grandmother Colon cancer Diabetes High blood pressure Stroke Father Abnormal heart rhythm High blood pressure Paternal Grandmother Kidney disease Family/Other Breast cancer Paternal Aunt Breast cancer Family/Other Breast cancer Social History (Reviewed 02/25/24 @ 08:20 by Kenisha Guerrero [facility]) Household Members: Spouse and Children Housing: Apartment Are you a primary respiratory care faculty to a significant other at home: No Do you presently have visiting nurse or other home services: No Alcohol intake: current Alcohol intake frequency: holidays/special occasions only Patient Tobacco Use Status: Never used Tobacco e-Cigarette/Vaping Use: Never Used service: No Current occupational status: employed 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 Lester Olivera, Laura Lepe, Ho Slater and colleagues, with an educational chelsey from [employer]. Review of Systems Const Details: Const Denies chills, Denies fatigue, Denies fever(s), Denies headache(s) and Denies weakness ENT Denies dizziness and Denies headache(s) Card Denies chest pain, Denies lightheadedness, Denies dyspnea and Denies other (Palpitations) Resp Denies cough, Denies dyspnea, Denies wheezing and Denies other ( shortness of breath) GI Denies abdominal pain, Denies melena, Denies hematochezia, Denies change in bowel habits, Denies dyspepsia and Denies nausea Denies hematuria and Denies dysuria Musc Denies abnormal gait, Denies myalgias, Denies arthralgias, Denies numbness and Denies tingling Skin/Breast Denies rash, Denies unusual bruising and Denies wounds Neuro Denies abnormal gait, Denies dizziness, Denies headache(s), Denies memory loss, Denies numbness, Denies Sensory deficit (Neuro), Denies tingling and Denies weakness Psych Denies anxiety, Denies depression, Denies memory loss Endo Denies cold intolerance, Denies fatigue, Denies heat intolerance, Denies polydipsia and Denies polyuria Aller/Immun Denies wheezing Physical exam (Primary Care) Vital Signs: Last Vital Signs Temp 97.5 F 04/01/24 09:32 Pulse 66 04/01/24 09:32 Resp 16 04/01/24 09:32 BP 122/80 04/01/24 09:32 Pulse Ox 98 04/01/24 09:32 Oxygen Delivery Method Room Air 04/01/24 09:32 Tobacco/Smoking Status: Tobacco use Status Tobacco use date assessed 10/29/23 04/01/24 09:30 Patient Tobacco Use Status Never used Tobacco 04/01/24 09:30 e-Cigarette/Vaping Use Never Used 04/01/24 09:30 Thrive Assessment: Date of Thrive Assessment Date Thrive assessed 10/29/23 04/01/24 09:30 Const Other: General: no acute distress and well developed Nutritional Appearance: well nourished Orientation/consciousness: patient oriented x3 HENMT Head: Yes normocephalic and Yes atraumatic Eyes General: appearance normal, both eyes and all related structures Pupils: Equal, round and reactive pupils present EOM: EOMs intact bilaterally Resp Effort & Inspection: normal respiratory effort Auscultation: clear to auscultation bilaterally Cardio Rate: regular rate Rhythm: regular rhythm Heart sounds: S1 normal heart sound present, S2 normal heart sound present, no gallops, no murmurs and no rubs GI Palpation (GI): No Abdominal aortic bruit present, Soft to palpation, nontender, No hepatosplenomegaly present and No Rebound tenderness present Auscultation: normal bowel sounds General: Yes no CVA tenderness Back/Spine/Pelvis Back: no CVA tenderness Cervical Spine: cervical ROM normal and No Cervical spine tenderness Thoracic/Lumbar Spine: thoraco-lumbar ROM normal, No pain with thoraco-lumbar ROM, No thoracic spinal tenderness and No lumbar spinal tenderness Extrem General: Yes normal to inspection, No edema and No calf tenderness Skin General: warm and dry. Normal skin color. Normal skin turgor Neuro General: patient oriented x3, gait normal and no focal neuro deficit Cranial nerves: Yes Equal, round and reactive pupils present Cognition (Neuro): normal cognition Gait exam (Neuro): Normal gait present Sensory Exam: No Sensory deficit (Neuro) Psych Appearance: grossly normal Affect: normal affect Attitude: cooperative Thought process: Normal thought process present Assessment and Plan Assessment & Plan (1) Morbid obesity: Code(s): E66.01 - Morbid (severe) obesity due to excess calories Plan: She currently weighs 209 lb, 35.9 Healthy diet and routine exercise encouraged. The importance of consistency emphasized Continue follow-up with dietitian Return in 2 months for hypertension and diabetes or sooner with symptoms or concerns Verbalized understanding and agreed with the treatment plan Coding Level of Care Code Est Pt Level 3 (27984) Diagnoses Morbid obesity E66.01
[2024-04-01 09:32] VITALS: BP 122/80; PULSE 66; RESP 16; TEMP 36.4; O2SAT 98; BMI 35.9
== END 2024-04-01 10:00 | disposition home or self-care (01) ==
PROVIDERS: PCP Nurse Practitioner Family; Visit Provider Nurse Practitioner Family
DX: E66.01 Morbid (severe) obesity due to excess calories (principal); Z68.35 Body mass index [BMI] 35.0-35.9, adult
CPT/HCPCS: 99213

== ENCOUNTER 2024-06-11 11:01 | Outpatient (AMB) | payer OTHER, SELFPAY ==
--- NOTE | 2024-06-11 11:08 | A.OFFPC_ITS ---
Vital Signs 06/11/24 11:18 Height 5 ft 4 in Weight 217 lb 4 oz BMI 37.3 BP 150/100 H Blood Pressure Location Lt brachial Position Sitting Respiration 16 Pulse 64 Pulse Source Auscultation Temp 97.8 F Temp Source Oral Pulse Oximetry (%) 98 Oxygen Delivery Method Room Air Intake Visit Reasons: HTN, DM Intake Note: patient here to follow up on HTN and DM Biochemistry Technician Required: No Is last menstrual period known: No Post menopausal: No Patient : No Allergies No Known Allergies Allergy (Verified 06/11/24 11:26) Medication List - Last Reconciled 06/11/24 by Amalia Clancy CNP atorvastatin 20 mg PO DAILY 3 months blood sugar diagnostic (FreeStyle Lite Strips) CHECK BLOOD SUGAR DAILY NEEDED blood-glucose meter (FreeStyle Lite Meter kit) As directed folic acid 1 mg PO DAILY 3 months hydrochlorothiazide 25 mg PO DAILY 3 months lancets (FreeStyle Lancets) check blood sugar daily and daily as needed losartan 100 mg PO DAILY 3 months metformin 500 mg PO BID 30 days Tobacco use date assessed: 06/11/24 Dental Screening Dental Screen Date: 06/11/24 Did you have a dental visit in the last 12 months?: Yes Did you have a dental problem in the last 6 months where you did not have access to dental care?: No Was dental information given to patient?: Patient has dentist HPI HPI Comments History of Present Illness Details 48-year-old female presents for hyperten maria l and diabetes follow-up She admits to taking her medications as prescribed without adverse reactions. She took her AM meds today She notes that her diet has generally been good; however, she did not make healthy dietary choice when she was on vacation in March; she has been been maintaining a low sodium diet She notes significant stress and anxiety related to family and health stressors. She has been the caregiver of her grandchild. She worries about her recent gynecological tests and uterine results; no malignancy. Sleep has been an issue; she wakes up frequently because I have a lot on my mind. She sleeps an average of 5 hours nightly. She walks 3 days a week. She denies history of anxiety or depression. [facility] Medical History Lesion of left ovary Endometrial hyperplasia Breast calcification, right Family history of breast cancer Morbid obesity Leiomyoma Diabetes type 2, controlled Thalassemia TIA (transient ischemic attack) Surgical History History of esophagogastroduodenoscopy (EGD) H/O colonoscopy Hx of cholecystectomy Family History Maternal Grandmother Colon cancer Diabetes High blood pressure Stroke Father Abnormal heart rhythm High blood pressure Paternal Grandmother Kidney disease Family/Other Breast cancer Paternal Aunt Breast cancer Family/Other Breast cancer Social History Household Members: Spouse and Children Housing: Apartment Are you a primary insurance healthcare representative to a significant other at home: No Do you presently have visiting nurse or other home services: No Alcohol intake: current Alcohol intake frequency: holidays/special occasions only Patient Tobacco Use Status: Never used Tobacco e-Cigarette/Vaping Use: Never Used service: No Current occupational status: employed 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 1. Little interest or pleasure in doing things: several days 2. Feeling down, depressed, or hopeless: several days 3. Trouble falling or staying asleep, or sleeping too much: more than half the days 4. Feeling tired or having little energy: nearly every day 5. Poor appetite or overeating: more than half the days 6. Feeling bad about yourself - or that you are a failure or have let yourself or your family down: nearly every day (concerned about her weight) 7. Trouble concentrating on things, such as reading the newspaper or watching television: more than half the days 8. Moving or speaking so slowly that other people could have noticed. Or the opposite - being so fidgety or restless that you have been moving around a lot more than usual: not at all 9. Thoughts that you would be better off or of hurting yourself in some way: not at all Total score: 14 Depression Screening Interpretation: Positive Depression Screening Follow-up: New Medication prescribed Depression Screening Done: Yes 77255 - PHQ-9 Billing: Yes Source: Developed by Drs. Lester Olivera, Laura Lepe, Ho Slater and colleagues, with an educational chelsey from [employer]. Thrive Questionnaire Date Thrive assessed: 10/29/23 AUDIT C Alcohol Use Questionnaire (AUDIT-C) 2. How many drinks containing alcohol do you have on a typical day when you are drinking?: 1 or 2 3. How often do you have six or more drinks on one occasion?: Never Total Score: 0 TIANA-7 AMB Questionnaire TIANA-7 Date TIANA - 7 assessed: 06/11/24 Feeling nervous, anxious, or on edge: 2 = More than half the days Not being able to stop or control worryin = Nearly every day Worrying too much about different things: 3 = Nearly every day Trouble relaxin = Nearly every day Being so restless that it is hard to sit still: 0 = Not at all Becoming easily annoyed or irritable: 3 = Nearly every day Feeling afraid as if something awful might happen: 2 = More than half the days Total TIANA-7 score (0-4 normal; 5-9 mild; 10-14 moderate; 15-21 severe): 16 Source: Developed by Drs. Lester Olivera, Laura Lepe, Ho Slater and colleagues, with an educational chelsey from [employer]. TIANA-7 Assessment Billing TIANA-7 Assessment Tool: TIANA-7 Assessment 74798 Review of Systems Const Details: Const Denies chills, Denies fatigue, Denies fever(s), Denies headache(s) and Denies weakness ENT Denies dizziness and Denies headache(s) Card Denies chest pain, Denies lightheadedness, Denies dyspnea and Denies other (Palpitations) Resp Denies cough, Denies dyspnea, Denies wheezing and Denies other ( shortness of breath) GI Denies abdominal pain, Denies melena, Denies hematochezia, Denies change in bowel habits, Denies dyspepsia and Denies nausea Denies hematuria and Denies dysuria Musc Denies abnormal gait, Denies myalgias, Denies arthralgias, Denies numbness and Denies tingling Skin/Breast Denies rash, Denies unusual bruising and Denies wounds Neuro Denies abnormal gait, Denies dizziness, Denies headache(s), Denies memory loss, Denies numbness, Denies Sensory deficit (Neuro), Denies tingling and Denies weakness Psych Reports anxiety, Denies depression Endo Denies cold intolerance, Denies fatigue, Denies heat intolerance, Denies polydipsia and Denies polyuria Aller/Immun Denies wheezing Physical exam (Primary Care) Vital Signs: Last Vital Signs Temp 97.8 F 06/11/24 11:18 Pulse 64 06/11/24 11:18 Resp 16 06/11/24 11:18 BP 150/100 H 06/11/24 11:18 Pulse Ox 98 06/11/24 11:18 Oxygen Delivery Method Room Air 06/11/24 11:18 BMI result Body Mass Index 37.3 Tobacco/Smoking Status: Tobacco use Status Tobacco use date assessed 06/11/24 06/11/24 11:19 Patient Tobacco Use Status Never used Tobacco 06/11/24 11:10 e-Cigarette/Vaping Use Never Used 06/11/24 11:10 PHQ-9: PHQ-9 Score PHQ-9: Total score 14 06/11/24 12:10 Depression Screening Interpretation: Positive Depression Screening Follow-up: New Medication prescribed Thrive Assessment: Date of Thrive Assessment Date Thrive assessed 10/29/23 06/11/24 11:10 Const Other: General: no acute distress and well developed Nutritional Appearance: well nourished Orientation/consciousness: patient oriented x3 HENMT Head: Yes normocephalic and Yes atraumatic Eyes General: appearance normal, both eyes and all related structures Pupils: Equal, round and reactive pupils present EOM: EOMs intact bilaterally Resp Effort & Inspection: normal respiratory effort Auscultation: clear to auscultation bilaterally Cardio Rate: regular rate Rhythm: regular rhythm Heart sounds: S1 normal heart sound present, S2 normal heart sound present, no gallops, no murmurs and no rubs GI Palpation (GI): No Abdominal aortic bruit present, Soft to palpation, nontender, No hepatosplenomegaly present and No Rebound tenderness present Auscultation: normal bowel sounds General: Yes no CVA tenderness Back/Spine/Pelvis Back: no CVA tenderness Cervical Spine: cervical ROM normal and No Cervical spine tenderness Thoracic/Lumbar Spine: thoraco-lumbar ROM normal, No pain with thoraco-lumbar ROM, No thoracic spinal tenderness and No lumbar spinal tenderness Extrem General: Yes normal to inspection, No edema and No calf tenderness Skin General: warm and dry. Normal skin color. Normal skin turgor Neuro General: patient oriented x3, gait normal and no focal neuro deficit Cranial nerves: Yes Equal, round and reactive pupils present Cognition (Neuro): normal cognition Gait exam (Neuro): Normal gait present Sensory Exam: No Sensory deficit (Neuro) Psych Appearance: grossly normal Affect: normal affect Attitude: cooperative Thought process: Normal thought process present Results AMB Hemoglobin A1c AMB Hemoglobin A1c 6.6 % Last Edit by Maral Reid on 06/11/24 11:48 Results Reviewed Results Reviewed: Laboratory Last Values Hgb A1c (Clinic) 6.6 % (4.0-6.0) H 06/11/24 11:27 Assessment and Plan Assessment & Plan (1) Hypertension: Code(s): I10 - Essential (primary) hypertension Qualifiers: Hypertension type: primary hypertension Qualified Code(s): I10 - Essential (primary) hypertension Plan: Resting blood pressure is 150/100, above goal of less than 130/80, heart rate is 64 She has been in significant stress and anxiety related to family issues and her health. Sleep is also an issue. These symptoms may contributes to her elevated blood pressure Continue to take losartan and hydrochlorothiazide as prescribed She does not want antidepressant or psychotherapy at this time. Will trial hydroxyzine 25 mg 3 times daily as needed to target anxiety. Advised to take as prescribed. Instructed on the risks, benefits, and potential adverse reactions of the medication Low-sodium diet and routine exercise encouraged Follow-up in 2 weeks or sooner with worsening or new symptoms Verbalized understanding and agreed with the treatment plan (2) Anxiety: Code(s): F41.9 - Anxiety disorder, unspecified Plan: PHQ-9 and TIANA-7 scores revealed moderate depression and severe anxiety respectively Plan as above (3) Depression: Code(s): F32.A - Depression, unspecified Plan: Plan as above (4) Sleep disturbance: Code(s): G47.9 - Sleep disorder, unspecified Plan: Plan as above (5) Diabetes type 2, controlled: Code(s): E11.9 - Type 2 diabetes mellitus without complications Plan: A1c today 6.6%, within goal of less than 7.0%. Previous A1c was 6.2% Continue current treatment regimen ADA diet and routine exercise encouraged Will recheck A1c in 3 months Verbalized understanding and agreed with the plan Orders: Orders AMB Hemoglobin A1c Today Z13.9 - Encounter for screening, unspecified Complete Blood Count Auto Diff 3 Months E11.9 - Type 2 diabetes mellitus without complications Comprehensive Balm. Panel Fast 3 Months E11.9 - Type 2 diabetes mellitus without complications Microalbumin, Random (w Creat) 3 Months E11.9 - Type 2 diabetes mellitus without complications TSH reflex Free T4 3 Months E11.9 - Type 2 diabetes mellitus without complications, I10 - Essential (primary) hypertension Lipid Panel 3 Months E11.9 - Type 2 diabetes mellitus without complications Medications: New hydroxyzine HCl 25 mg PO TID PRN 90 tabs 0RF itching Coding Level of Care Code Est Pt Level 4 (47727) Diagnoses Primary hypertension I10 Hypertension type: primary hypertension Anxiety F41.9 Depression F32.A Sleep disturbance G47.9 Diabetes type 2, controlled E11.9 Additional Codes TIANA-7 Assessment Billing - TIANA-7 Assessment Tool: TIANA-7 Assessment [id number] ([id number])
[2024-06-11 11:18] VITALS: BP 150/100; PULSE 64; RESP 16; TEMP 36.6; O2SAT 98; BMI 37.3
== END 2024-06-11 12:18 | disposition home or self-care (01) ==
PROVIDERS: PCP Nurse Practitioner Family; Visit Provider Nurse Practitioner Family
DX: E11.9 Type 2 diabetes mellitus without complications (principal); I10 Essential (primary) hypertension; F41.9 Anxiety disorder, unspecified; F32.A Depression, unspecified; G47.9 Sleep disorder, unspecified

== ENCOUNTER → 2024-06-11 11:01 | Outpatient (BNVA) | payer OTHER, SELFPAY | PROVIDERS: PCP Nurse Practitioner Family; Visit Provider Nurse Practitioner Family | DX: I10 Essential (primary) hypertension (principal); E11.9 Type 2 diabetes mellitus without complications; F41.9 Anxiety disorder, unspecified; F32.A Depression, unspecified; G47.9 Sleep disorder, unspecified; Z79.84 Long term (current) use of oral hypoglycemic drugs | CPT/HCPCS: 83036; 96127; 99212 ==

== ENCOUNTER 2024-06-25 10:48 | Outpatient (AMB) | payer OTHER, SELFPAY ==
--- NOTE | 2024-06-25 10:52 | A.OFFPC_ITS ---
Vital Signs 06/25/24 10:56 06/25/24 11:19 Height 5 ft 4 in Weight 213 lb BMI 36.6 BP 142/90 H 140/90 H Blood Pressure Location Lt brachial Rt brachial Position Sitting Sitting Respiration 16 Pulse 82 Pulse Source Pulse Oximeter Temp 98.0 F Temp Source Oral Pulse Oximetry (%) 96 Oxygen Delivery Method Room Air Intake Visit Reasons: 2 wks HTN, anx, dep Intake Note: patient her eto follow up on anxiety, depression and HTN. Documentation Designer Required: No Is last menstrual period known: No Post menopausal: No Patient : No Allergies No Known Allergies Allergy (Verified 06/25/24 11:16) Medication List - Last Reconciled 06/25/24 by Amalia Clancy CNP atorvastatin 20 mg PO DAILY 3 months blood sugar diagnostic (FreeStyle Lite Strips) CHECK BLOOD SUGAR DAILY NEEDED blood-glucose meter (FreeStyle Lite Meter kit) As directed folic acid 1 mg PO DAILY 3 months hydrochlorothiazide 25 mg PO DAILY 3 months hydroxyzine HCl 25 mg PO TID PRN lancets (FreeStyle Lancets) check blood sugar daily and daily as needed losartan 100 mg PO DAILY 3 months metformin 500 mg PO BID 30 days Tobacco use date assessed: 06/25/24 Dental Screening Dental Screen Date: 06/25/24 Did you have a dental visit in the last 12 months?: Yes Did you have a dental problem in the last 6 months where you did not have access to dental care?: No Was dental information given to patient?: Patient has dentist HPI HPI Comments History of Present Illness Details 48-year-old female presents for hyperten maria l, anxiety, and depression follow-up She admits to taking her medications as prescribed without adverse reactions She has been maintaining a low-sodium diet She notes controlled anxiety and depressive symptoms She offers no complaints and denies acute symptoms at this [facility] Medical History Lesion of left ovary Endometrial hyperplasia Breast calcification, right Family history of breast cancer Morbid obesity Leiomyoma Diabetes type 2, controlled Thalassemia TIA (transient ischemic attack) Surgical History History of esophagogastroduodenoscopy (EGD) H/O colonoscopy Hx of cholecystectomy Family History Maternal Grandmother Colon cancer Diabetes High blood pressure Stroke Father Abnormal heart rhythm High blood pressure Paternal Grandmother Kidney disease Family/Other Breast cancer Paternal Aunt Breast cancer Family/Other Breast cancer Social History Household Members: Spouse and Children Housing: Apartment Are you a primary career coach to a significant other at home: No Do you presently have visiting nurse or other home services: No Alcohol intake: current Alcohol intake frequency: holidays/special occasions only Patient Tobacco Use Status: Never used Tobacco e-Cigarette/Vaping Use: Never Used service: No Current occupational status: employed 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 1. Little interest or pleasure in doing things: several days 2. Feeling down, depressed, or hopeless: not at all 3. Trouble falling or staying asleep, or sleeping too much: more than half the days 4. Feeling tired or having little energy: several days 5. Poor appetite or overeating: not at all 6. Feeling bad about yourself - or that you are a failure or have let yourself or your family down: several days 7. Trouble concentrating on things, such as reading the newspaper or watching television: more than half the days 8. Moving or speaking so slowly that other people could have noticed. Or the opposite - being so fidgety or restless that you have been moving around a lot more than usual: not at all 9. Thoughts that you would be better off or of hurting yourself in some way: not at all Total score: 7 Depression Screening Interpretation: Positive Depression Screening Follow-up: Existing condition and In treatment Depression Screening Done: Yes 12778 - PHQ-9 Billing: Yes Source: Developed by Drs. Lester Olivera, Laura Lepe, Ho Slater and colleagues, with an educational chelsey from [employer]. Thrive Questionnaire Date Thrive assessed: 10/29/23 TIANA-7 AMB Questionnaire TIANA-7 Date TIANA - 7 assessed: 06/25/24 Feeling nervous, anxious, or on edge: 1 = Several days Not being able to stop or control worryin = Several days Worrying too much about different things: 1 = Several days Trouble relaxin = Several days Being so restless that it is hard to sit still: 1 = Several days Becoming easily annoyed or irritable: 2 = More than half the days Feeling afraid as if something awful might happen: 1 = Several days Total TIANA-7 score (0-4 normal; 5-9 mild; 10-14 moderate; 15-21 severe): 8 Source: Developed by Drs. Lester Olivera, Laura Lepe, Ho Slater and colleagues, with an educational chelsey from [employer]. TIANA-7 Assessment Billing TIANA-7 Assessment Tool: TIANA-7 Assessment [id number] Review of Systems Const Details: Const Denies chills, Denies fatigue, Denies fever(s), Denies headache(s) and Denies weakness ENT Denies dizziness and Denies headache(s) Card Denies chest pain, Denies lightheadedness, Denies dyspnea and Denies other (Palpitations) Resp Denies cough, Denies dyspnea, Denies wheezing and Denies other ( shortness of breath) GI Denies abdominal pain, Denies melena, Denies hematochezia, Denies change in jae wel habits, Denies dyspepsia and Denies nausea Denies hematuria and Denies dysuria Musc Denies abnormal gait, Denies myalgias, Denies arthralgias, Denies numbness and Denies tingling Skin/Breast Denies rash, Denies unusual bruising and Denies wounds Neuro Denies abnormal gait, Denies dizziness, Denies headache(s), Denies memory loss, Denies numbness, Denies Sensory deficit (Neuro), Denies tingling and Denies weakness Psych Denies anxiety, Denies depression, Denies memory loss Endo Denies cold intolerance, Denies fatigue, Denies heat intolerance, Denies polydipsia and Denies polyuria Aller/Immun Denies wheezing Physical exam (Primary Care) Tobacco/Smoking Status: Tobacco use Status Tobacco use date assessed 06/11/24 06/25/24 10:54 Patient Tobacco Use Status Never used Tobacco 06/25/24 10:54 e-Cigarette/Vaping Use Never Used 06/25/24 10:54 Depression Screening Interpretation: Positive Depression Screening Follow-up: Existing condition and In treatment Thrive Assessment: Date of Thrive Assessment Date Thrive assessed 10/29/23 06/25/24 10:54 Const Other: General: no acute distress and well developed Nutritional Appearance: well nourished Orientation/consciousness: patient oriented x3 HENMT Head: Yes normocephalic and Yes atraumatic Eyes General: appearance normal, both eyes and all related structures Pupils: Equal, round and reactive pupils present EOM: EOMs intact bilaterally Resp Effort & Inspection: normal respiratory effort Auscultation: clear to auscultation bilaterally Cardio Rate: regular rate Rhythm: regular rhythm Heart sounds: S1 normal heart sound present, S2 normal heart sound present, no gallops, no murmurs and no rubs GI Palpation (GI): No Abdominal aortic bruit present, Soft to palpation, nontender, No hepatosplenomegaly present and No Rebound tenderness present Auscultation: normal bowel sounds General: Yes no CVA tenderness Back/Spine/Pelvis Back: no CVA tenderness Cervical Spine: cervical ROM normal and No Cervical spine tenderness Thoracic/Lumbar Spine: thoraco-lumbar ROM normal, No pain with thoraco-lumbar ROM, No thoracic spinal tenderness and No lumbar spinal tenderness Extrem General: Yes normal to inspection, No edema and No calf tenderness Skin General: warm and dry. Normal skin color. Normal skin turgor Neuro General: patient oriented x3, gait normal and no focal neuro deficit Cranial nerves: Yes Equal, round and reactive pupils present Cognition (Neuro): normal cognition Gait exam (Neuro): Normal gait present Sensory Exam: No Sensory deficit (Neuro) Psych Appearance: grossly normal Affect: normal affect Attitude: cooperative Thought process: Normal thought process present Coding Level of Care Code Est Pt Level 3 (30391) Diagnoses Primary hypertension I10 Hypertension type: primary hypertension Anxiety F41.9 Depression F32.A Additional Codes TIANA-7 Assessment Billing - TIANA-7 Assessment Tool: TIANA-7 Assessment [id number] ([id number]) Assessment & Plan Assessment & Plan (1) Hypertension: Code(s): I10 - Essential (primary) hypertension Category: Medical Qualifiers: Hypertension type: primary hypertension Qualified Code(s): I10 - Essential (primary) hypertension Plan: Resting blood pressure is 140/90, above goal of less than 130/80 She was on amlodipine 10mg daily but stopped taking the medication due to subjective mild left ankle swelling; denies difficulty breathing Will restart amlodipine 5 mg daily. Advised to take as prescribed. Instructed on the risks, benefits, and potential adverse reactions of the medications. Informed that edema is and adverse reaction to amlodipine. Monitor for edema and associated symptoms and notify PCP Continue to take losartan and hydrochlorothiazide as prescribed Low-sodium diet encouraged Follow-up in 1 month or sooner with symptoms or concerns Verbalized understanding and agreed with treatment plan (2) Anxiety: Code(s): F41.9 - Anxiety disorder, unspecified Category: Medical Plan: PHQ-9 and TIANA-7 scores revealed moderate depression and anxiety Continue to take hydroxyzine as prescribed Routine exercise encouraged Follow-up with worsening or new symptoms Verbalized understanding and agreed with treatment plan (3) Depression: Code(s): F32.A - Depression, unspecified Category: Medical Plan: Plan as above Medications: New amlodipine 5 mg PO DAILY 30 days 30 tabs 3RF
[2024-06-25 10:56] VITALS: BP 142/90; PULSE 82; RESP 16; TEMP 36.7; O2SAT 96; BMI 36.6
[2024-06-25 11:19] VITALS: BP 140/90
== END 2024-06-25 11:32 | disposition home or self-care (01) ==
PROVIDERS: PCP Nurse Practitioner Family; Visit Provider Nurse Practitioner Family
DX: I10 Essential (primary) hypertension (principal); F41.9 Anxiety disorder, unspecified; F32.A Depression, unspecified

== ENCOUNTER → 2024-06-25 10:48 | Outpatient (BNVA) | payer OTHER, SELFPAY | PROVIDERS: PCP Nurse Practitioner Family; Visit Provider Nurse Practitioner Family | DX: I10 Essential (primary) hypertension (principal); F41.9 Anxiety disorder, unspecified; F32.A Depression, unspecified | CPT/HCPCS: 96127; 99212 ==

== ENCOUNTER 2024-07-30 11:08 | Outpatient (AMB) | payer OTHER, SELFPAY ==
--- NOTE | 2024-07-30 11:30 | A.OFFPC_ITS ---
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 Required: No Is last menstrual period known: No Post menopausal: No Patient : No Allergies No Known Allergies Allergy (Verified 07/30/24 11:49) Medication List - Last Reconciled 07/30/24 by mAalia Clancy CNP amlodipine 5 mg PO DAILY 30 days atorvastatin 20 mg PO DAILY 3 months blood sugar diagnostic (FreeStyle Lite Strips) CHECK BLOOD SUGAR DAILY NEEDED blood-glucose meter (FreeStyle Lite Meter kit) As directed folic acid 1 mg PO DAILY 3 months hydrochlorothiazide 25 mg PO DAILY 3 months hydroxyzine HCl 25 mg PO TID PRN lancets (FreeStyle Lancets) check blood sugar daily and daily as needed losartan 100 mg PO DAILY 3 months metformin 500 mg PO BID 30 days Tobacco use date assessed: 07/30/24 Dental Screening Dental Screen Date: 07/30/24 Did you have a dental visit in the last 12 months?: Yes Did you have a dental problem in the last 6 months where you did not have access to dental care?: No Was dental information given to patient?: Patient has dentist HPI HPI Comments History of Present Illness Details 49-year-old female presents for hyperten maria l follow-up. She admits to taking her medications as prescribed. She reports nausea for about 30 minutes after taking metformin in the morning. She takes her a.m. metformin without food. She does not like eating breakfast. She does not experience nausea after taking her p.m. metformin. She notes that she has been making healthy dietary choices including low-sodium diet. She offers no complaints and denies acute symptoms at this time. [facility] Medical History Lesion of left ovary Endometrial hyperplasia Breast calcification, right Family history of breast cancer Morbid obesity Leiomyoma Diabetes type 2, controlled Thalassemia TIA (transient ischemic attack) Surgical History History of esophagogastroduodenoscopy (EGD) H/O colonoscopy Hx of cholecystectomy Family History Maternal Grandmother Colon cancer Diabetes High blood pressure Stroke Father Abnormal heart rhythm High blood pressure Paternal Grandmother Kidney disease Family/Other Breast cancer Paternal Aunt Breast cancer Family/Other Breast cancer Social History Household Members: Spouse and Children Housing: Apartment Are you a primary anesthesiologist and critical care to a significant other at home: No Do you presently have visiting nurse or other home services: No Alcohol intake: current Alcohol intake frequency: holidays/special occasions only Patient Tobacco Use Status: Never used Tobacco e-Cigarette/Vaping Use: Never Used Second Hand Smoke Exposure: No Patient : No service: No Current occupational status: employed 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 Lester Olivera, Laura Lepe, Ho Slater and colleagues, with an educational chelsey from [employer]. Review of Systems Const Details: Const Denies chills, Denies fatigue, Denies fever(s), Denies headache(s) and Denies weakness ENT Denies dizziness and Denies headache(s) Card Denies chest pain, Denies lightheadedness, Denies dyspnea and Denies other (P alpitations) Resp Denies cough, Denies dyspnea, Denies wheezing and Denies other ( shortness of breath) GI Denies abdominal pain, Denies melena, Denies hematochezia, Denies change in bowel habits, Denies dyspepsia and Denies nausea Denies hematuria and Denies dysuria Musc Denies abnormal gait, Denies myalgias, Denies arthralgias, Denies numbness and Denies tingling Skin/Breast Denies rash, Denies unusual bruising and Denies wounds Neuro Denies abnormal gait, Denies dizziness, Denies headache(s), Denies memory loss, Denies numbness, Denies Sensory deficit (Neuro), Denies tingling and Denies weakness Psych Denies anxiety, Denies depression, Denies memory loss Endo Denies cold intolerance, Denies fatigue, Denies heat intolerance, Denies polydipsia and Denies polyuria Aller/Immun Denies wheezing Physical exam (Primary Care) Vital Signs: Last Vital Signs Temp 97.9 F 07/30/24 11:39 Pulse 80 07/30/24 11:39 Resp 16 07/30/24 11:39 BP 122/80 07/30/24 11:39 Pulse Ox 100 07/30/24 11:39 Oxygen Delivery Method Room Air 07/30/24 11:39 BMI result Body Mass Index 37.3 Tobacco/Smoking Status: Tobacco use Status Tobacco use date assessed 07/30/24 07/30/24 11:40 Patient Tobacco Use Status Never used Tobacco 07/30/24 11:32 e-Cigarette/Vaping Use Never Used 07/30/24 11:32 Thrive Assessment: Date of Thrive Assessment Date Thrive assessed 10/29/23 07/30/24 11:32 Const Other: General: no acute distress and well developed Nutritional Appearance: well nourished Orientation/consciousness: patient oriented x3 HENMT Head: Yes normocephalic and Yes atraumatic Eyes General: appearance normal, both eyes and all related structures Pupils: Equal, round and reactive pupils present EOM: EOMs intact bilaterally Resp Effort & Inspection: normal respiratory effort Auscultation: clear to auscultation bilaterally Cardio Rate: regular rate Rhythm: regular rhythm Heart sounds: S1 normal heart sound present, S2 normal heart sound present, no gallops, no murmurs and no rubs GI Palpation (GI): No Abdominal aortic bruit present, Soft to palpation, nontender, No hepatosplenomegaly present and No Rebound tenderness present Auscultation: normal bowel sounds General: Yes no CVA tenderness Back/Spine/Pelvis Back: no CVA tenderness Extrem General: Yes normal to inspection, No edema and No calf tenderness Skin General: warm and dry. Normal skin color. Normal skin turgor Neuro General: patient oriented x3, gait normal and no focal neuro deficit Cranial nerves: Yes Equal, round and reactive pupils present Cognition (Neuro): normal cognition Gait exam (Neuro): Normal gait present Sensory Exam: No Sensory deficit (Neuro) Psych Appearance: grossly normal Affect: normal affect Attitude: cooperative Thought process: Normal thought process present Coding Level of Care Code Est Pt Level 3 (71027) Diagnoses Primary hypertension I10 Hypertension type: primary hypertension Nausea R11.0 Assessment & Plan Assessment & Plan (1) Hypertension: Code(s): I10 - Essential (primary) hypertension Category: Medical Qualifiers: Hypertension type: primary hypertension Qualified Code(s): I10 - Essential (primary) hypertension Plan: Blood pressure is 122/80, slightly above goal of less than 130/80 Continue current treatment regimen Low-sodium diet encouraged Follow-up in 6 weeks for hypertension, diabetes, anxiety, and depression or sooner with symptoms or concerns Verbalized understanding and agreed with the treatment plan (2) Nausea: Code(s): R11.0 - Nausea Category: Medical Plan: She experiences nausea for about 30 minutes after taking metformin in the morning. She takes her a.m. metformin without food. She does not experience nausea after taking her p.m. metformin. She does not eat breakfast. Likely adverse reaction to taking metformin on an empty stomach Advised to eat breakfast before taking a.m. metformin Follow-up with worsening or new symptoms Verbalized understanding and agreed with the treatment plan
[2024-07-30 11:39] VITALS: BP 122/80; PULSE 80; RESP 16; TEMP 36.6; O2SAT 100; BMI 37.3
== END 2024-07-30 11:58 | disposition home or self-care (01) ==
PROVIDERS: PCP Nurse Practitioner Family; Visit Provider Nurse Practitioner Family
DX: I10 Essential (primary) hypertension (principal); R11.0 Nausea

== ENCOUNTER → 2024-07-30 11:08 | Outpatient (BNVA) | payer OTHER, SELFPAY | PROVIDERS: PCP Nurse Practitioner Family; Visit Provider Nurse Practitioner Family | DX: I10 Essential (primary) hypertension (principal); R11.0 Nausea | CPT/HCPCS: 99212 ==

== ENCOUNTER 2024-09-24 10:05 | Outpatient (AMB) | payer OTHER, SELFPAY ==
--- NOTE | 2024-09-24 10:18 | A.OFFPC_ITS ---
Vital Signs 09/24/24 10:24 Height 5 ft 4 in Weight 210 lb BMI 36.0 BP 139/82 Blood Pressure Location Rt brachial Position Sitting Respiration 16 Pulse 72 Pulse Source Pulse Oximeter Temp 98.1 F Temp Source Oral Pulse Oximetry (%) 98 Oxygen Delivery Method Room Air Intake Visit Reasons: 6 wks HTN, DM, anxiety, depression Intake Note: patient here for HTN. DM and anxiety and depression Literacy Education Professor Required: No Is last menstrual period known: No Post menopausal: No Patient : No Allergies No Known Allergies Allergy (Verified 09/24/24 10:51) Medication List - Last Reconciled 09/24/24 by Amalia Clancy CNP amlodipine 5 mg PO DAILY 30 days atorvastatin 20 mg PO DAILY 3 months blood sugar diagnostic (FreeStyle Lite Strips) CHECK BLOOD SUGAR DAILY NEEDED blood-glucose meter (FreeStyle Lite Meter kit) As directed folic acid 1 mg PO DAILY 3 months hydrochlorothiazide 25 mg PO DAILY 3 months hydroxyzine HCl 25 mg PO TID PRN lancets (FreeStyle Lancets) check blood sugar daily and daily as needed losartan 100 mg PO DAILY 3 months metformin 500 mg PO BID 30 days Tobacco use date assessed: 09/24/24 Dental Screening Dental Screen Date: 09/24/24 Did you have a dental visit in the last 12 months?: Yes Did you have a dental problem in the last 6 months where you did not have access to dental care?: No Was dental information given to patient?: Patient has dentist HPI HPI Comments History of Present Illness Details 49-year-old female presents for hyperten maria l, diabetes, anxiety and depression follow-up. She admits to taking her medications as prescribed without adverse reactions. She monitor her blood pressure at home infrequently. Last blood pressure reading was She has been maintaining a low-sodium diet and exercising routinely. Anxiety depressive symptoms of been well controlled. She offers no complaints and denies acute symptoms at this time. [facility] Medical History Lesion of left ovary Endometrial hyperplasia Breast calcification, right Family history of breast cancer Morbid obesity Leiomyoma Diabetes type 2, controlled Thalassemia TIA (transient ischemic attack) Surgical History History of esophagogastroduodenoscopy (EGD) H/O colonoscopy Hx of cholecystectomy Family History Maternal Grandmother Colon cancer Diabetes High blood pressure Stroke Father Abnormal heart rhythm High blood pressure Paternal Grandmother Kidney disease Family/Other Breast cancer Paternal Aunt Breast cancer Family/Other Breast cancer Social History Household Members: Spouse and Children Housing: Apartment Are you a primary healthcare economics consultant to a significant other at home: No Do you presently have visiting nurse or other home services: No Alcohol intake: current Alcohol intake frequency: holidays/special occasions only Patient Tobacco Use Status: Never used Tobacco e-Cigarette/Vaping Use: Never Used Second Hand Smoke Exposure: No service: No Current occupational status: employed 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 1. Little interest or pleasure in doing things: not at all 2. Feeling down, depressed, or hopeless: not at all 3. Trouble falling or staying asleep, or sleeping too much: not at all 4. Feeling tired or having little energy: not at all 5. Poor appetite or overeating: not at all 6. Feeling bad about yourself - or that you are a failure or have let yourself or your family down: not at all 7. Trouble concentrating on things, such as reading the newspaper or watching television: not at all 8. Moving or speaking so slowly that other people could have noticed. Or the opposite - being so fidgety or restless that you have been moving around a lot more than usual: not at all 9. Thoughts that you would be better off or of hurting yourself in some way: not at all Total score: 0 Depression Screening Interpretation: Negative Depression Screening Done: Yes 13139 - PHQ-9 Billing: Yes Source: Developed by Drs. Lester Olivera, Laura Lepe, Ho Slater and colleagues, with an educational chelsey from [employer]. Thrive Questionnaire Date Thrive assessed: 09/24/24 I am a: Patient What is your living situation today?: I have a steady place to live Within the past 12 months, did the food you bought not last and you didn't have the money to get more?: Never true Within the past 12 months, did you worry whether your food would run out before you got money to buy more?: Never true Do you have trouble paying for medicines?: No Do you have trouble getting transportation to medical appointments?: No Do you have trouble paying your heating and electricity bill?: No Do you have trouble taking care of your child, family member or friend?: No Do you have trouble with day-to-day activities such as bathing, preparing meals, shopping, managing finances, etc.?: No Are you currently unemployed and looking for a job?: No Are you interested in more education?: I choose not to answer this question Please select the resources that you would like help with: None Currently or been in a relationship where the following occur: No concerns reported THRIVE Score: 0 AUDIT C Alcohol Use Questionnaire (AUDIT-C) 1. How often do you have a drink containing alcohol?: Monthly or less 2. How many drinks containing alcohol do you have on a typical day when you are drinking?: 1 or 2 3. How often do you have six or more drinks on one occasion?: Never Total Score: 1 TIANA-7 AMB Questionnaire TIANA-7 Date TIANA - 7 assessed: 09/24/24 Feeling nervous, anxious, or on edge: 0 = Not at all Not being able to stop or control worryin = Several days Worrying too much about different things: 1 = Several days Trouble relaxin = Not at all Being so restless that it is hard to sit still: 0 = Not at all Becoming easily annoyed or irritable: 1 = Several days Feeling afraid as if something awful might happen: 1 = Several days Total TIANA-7 score (0-4 normal; 5-9 mild; 10-14 moderate; 15-21 severe): 4 Source: Developed by Drs. Lester Olivera, Laura Lepe, Ho Slater and colleagues, with an educational chelsey from [employer] TIANA-7 Assessment Billing TIANA-7 Assessment Tool: TIANA-7 Assessment 29163 Review of Systems Const Details: Const Denies chills, Denies fatigue, Denies fever(s), Denies headache(s) and Denies weakness ENT Denies dizziness and Denies headache(s) Card Denies chest pain, Denies lightheadedness, Denies dyspnea and Denies other (Palpitations) Resp Denies cough, Denies dyspnea, Denies wheezing and Denies other ( shortness of breath) GI Denies abdominal pain, Denies melena, Denies hematochezia, Denies change in bowel habits, Denies dyspepsia and Denies nausea Denies hematuria and Denies dysuria Musc Denies abnormal gait, Denies myalgias, Denies arthralgias, Denies numbness and Denies tingling Skin/Breast Denies rash, Denies unusual bruising and Denies wounds Neuro Denies abnormal gait, Denies dizziness, Denies headache(s), Denies memory loss, Denies numbness, Denies Sensory deficit (Neuro), Denies tingling and Denies weakness Psych Denies anxiety, Denies depression, Denies memory loss Endo Denies cold intolerance, Denies fatigue, Denies heat intolerance, Denies polydipsia and Denies polyuria Aller/Immun Denies wheezing Physical exam (Primary Care) Vital Signs: Last Vital Signs Temp 98.1 F 09/24/24 10:24 Pulse 72 09/24/24 10:24 Resp 16 09/24/24 10:24 BP 139/82 09/24/24 10:24 Pulse Ox 98 09/24/24 10:24 Oxygen Delivery Method Room Air 09/24/24 10:24 BMI result Body Mass Index 36.0 Tobacco/Smoking Status: Tobacco use Status Tobacco use date assessed 09/24/24 09/24/24 10:27 Patient Tobacco Use Status Never used Tobacco 09/24/24 10:22 e-Cigarette/Vaping Use Never Used 09/24/24 10:22 PHQ-9: PHQ-9 Score PHQ-9: Total score 0 09/24/24 12:50 Depression Screening Interpretation: Negative Thrive Assessment: Date of Thrive Assessment Date Thrive assessed 09/24/24 09/24/24 10:22 Currently or been in a relationship where the following occur: No concerns reported Const Other: General: no acute distress and well developed Nutritional Appearance: well nourished Orientation/consciousness: patient oriented x3 HENMT Head: Yes normocephalic and Yes atraumatic Eyes General: appearance normal, both eyes and all related structures Pupils: Equal, round and reactive pupils present EOM: EOMs intact bilaterally Resp Effort & Inspection: normal respiratory effort Auscultation: clear to auscultation bilaterally Cardio Rate: regular rate Rhythm: regular rhythm Heart sounds: S1 normal heart sound present, S2 normal heart sound present, no gallops, no murmurs and no rubs GI Palpation (GI): No Abdominal aortic bruit present, Soft to palpation, nontender, No hepatosplenomegaly present and No Rebound tenderness present Auscultation: normal bowel sounds General: Yes no CVA tenderness Back/Spine/Pelvis Back: no CVA tenderness Cervical Spine: cervical ROM normal and No Cervical spine tenderness Thoracic/Lumbar Spine: thoraco-lumbar ROM normal, No pain with thoraco-lumbar ROM, No thoracic spinal tenderness and No lumbar spinal tenderness Extrem General: Yes normal to inspection, No edema and No calf tenderness Skin General: warm and dry. Normal skin color. Normal skin turgor Lesions: no lesions Rashes: no rashes Trauma: no lacerations or abrasions Wounds: no wounds Nails: normal Neuro General: patient oriented x3, gait normal and no focal neuro deficit Cranial nerves: Yes Equal, round and reactive pupils present Cognition (Neuro): normal cognition Gait exam (Neuro): Normal gait present Sensory Exam: No Sensory deficit (Neuro) Psych Appearance: grossly normal Affect: normal affect Attitude: cooperative Thought process: Normal thought process present Results AMB Hemoglobin A1c AMB Hemoglobin A1c 5.5 % Last Edit by Maral Reid on 09/24/24 11:06 Results Reviewed Results Reviewed: Laboratory Last Values Hgb A1c (Clinic) 5.5 % (4.0-6.0) 09/24/24 10:53 Coding Level of Care Code Est Pt Level 4 (19057) Diagnoses Primary hypertension I10 Hypertension type: primary hypertension Diabetes type 2, controlled E11.9 Anxiety F41.9 Depression F32.A Additional Codes TIANA-7 Assessment Billing - TIANA-7 Assessment Tool: TIANA-7 Assessment 82771 ([id number]) PHQ-9 - 18015 - PHQ-9 Billing: Yes ([id number]) Assessment & Plan Assessment & Plan (1) Hypertension: Code(s): I10 - Essential (primary) hypertension Category: Medical Qualifiers: Hypertension type: primary hypertension Qualified Code(s): I10 - Essential (primary) hypertension Plan: Resting blood pressure is 139/82, above goal of less than 130/80. Will increase amlodipine to 10 mg daily; advised to take as prescribed. Continue to take hydrochlorothiazide and losartan as prescribed. Low-sodium diet encouraged. Will continue to monitor. Encouraged to perform fasting lab work 2-3 days before her next visit. Follow-up in 2 months for an extended physical exam or sooner with symptoms or concerns. Verbalized understanding and agreed with treatment plan. (2) Diabetes type 2, controlled: Code(s): E11.9 - Type 2 diabetes mellitus without complications Category: Medical Plan: A1c today is 5.6%, within goal of less than 7.0%. A1c inadvertently documented as 5.5%. Previous A1c was 6.6%. Continue current treatment regimen. ADA diet and routine exercise encouraged. Will recheck A1c in 3 months. Verbalized un derstanding and agreed with treatment plan. (3) Anxiety: Code(s): F41.9 - Anxiety disorder, unspecified Category: Medical Plan: Controlled anxiety and depressive symptoms. PHQ-9 and TIANA-7 scores are normal. Continue current treatment regimen. Routine exercise encouraged. Follow-up with symptoms or concerns. Verbalized understanding and agreed with the plan. (4) Depression: Code(s): F32.A - Depression, unspecified Category: Medical Plan: Plan as above. Orders: Orders AMB Hemoglobin A1c Today Z13.9 - Encounter for screening, unspecified Medications: New amlodipine 10 mg PO DAILY 30 days 30 tabs 3RF Discontinued amlodipine Discontinued Reason: Doctor's Order 5 mg PO DAILY 30 days 30 tabs 3RF
[2024-09-24 10:24] VITALS: BP 139/82; PULSE 72; RESP 16; TEMP 36.7; O2SAT 98; BMI 36.0
== END 2024-09-24 11:12 | disposition home or self-care (01) ==
PROVIDERS: PCP Nurse Practitioner Family; Visit Provider Nurse Practitioner Family
DX: I10 Essential (primary) hypertension (principal); E11.9 Type 2 diabetes mellitus without complications; F41.9 Anxiety disorder, unspecified; F32.A Depression, unspecified; Z13.9 Encounter for screening, unspecified

== ENCOUNTER → 2024-09-24 10:05 | Outpatient (BNVA) | payer OTHER, SELFPAY | PROVIDERS: PCP Nurse Practitioner Family; Visit Provider Nurse Practitioner Family | DX: I10 Essential (primary) hypertension (principal); E11.9 Type 2 diabetes mellitus without complications; F32.A Depression, unspecified; F41.9 Anxiety disorder, unspecified | CPT/HCPCS: 83036; 96127; 99212 ==

== ENCOUNTER 2024-10-21 10:29 | Outpatient (AMB) | payer OTHER, SELFPAY ==
--- NOTE | 2024-10-21 10:31 | A.OFFVIS_ITS ---
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 She is doing well with no forest fire fighter concerns. Currently sexually active with long-term partner. Admits to vaginal dryness denies any irritation. STI testing offered; she declined. LMP- 07/2023. Attempting to eat a healthy diet with calcium and vitamin D and stays active with exercise. Last pap smear; 2023. Last mammogram; 2023. Family history of breast cancer. [facility] Medical History (Updated 10/21/24 @ 11:04 by Yadira Mars CNM) Lesion of left ovary Endometrial hyperplasia Breast calcification, right Family history of breast cancer Morbid obesity Leiomyoma Diabetes type 2, controlled Thalassemia TIA (transient ischemic attack) Surgical History History of esophagogastroduodenoscopy (EGD) H/O colonoscopy Hx of cholecystectomy Family History Maternal Grandmother Colon cancer Diabetes High blood pressure Stroke Father Abnormal heart rhythm High blood pressure Coronary artery disease Myocardial infarction Paternal Grandmother Kidney disease Family/Other Breast cancer Paternal Aunt Breast cancer Family/Other Breast cancer Social History Household Members: Spouse and Children Housing: Apartment Are you a primary care navigator to a significant other at home: No Do you presently have visiting nurse or other home services: No Alcohol intake: current Alcohol intake frequency: holidays/special occasions only Patient Tobacco Use Status: Never used Tobacco e-Cigarette/Vaping Use: Never Used Second Hand Smoke Exposure: No service: No Current occupational status: employed 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 Current occupational exposures/hazards: No Cognitive needs: No Hearing needs: No Vision needs: No Female Reproductive History Menstrual Age of Menarche: 10 Total pregnancies: 3 Full term: 3 Number of Living Children: 3 Date of last pap smear: 10/18/23 (neg pap and hpv) Date of Mammogram: 11/23/23 (0) History of abnormal mammogram: Yes (12/18/23 Bir[facility] 4) Review of Systems Const All systems reviewed & are unremarkable except as noted in HPI and below Reports as per HPI Eyes Reports no additional complaints ENT Reports no additional complaints Card Reports no additional complaints Resp Reports no additional complaints GI Reports as per HPI and Reports no additional complaints Reports as per HPI Musc Reports no additional complaints Skin/Breast Reports as per HPI Neuro Reports no additional complaints Psych Reports no additional complaints Endo Reports no additional complaints Jean-Paul/Lymph Reports no additional complaints Aller/Immun Reports no additional complaints Physical Exam Vital Signs: Last Vital Signs BP 110/78 10/21/24 10:32 BMI result Body Mass Index 34.5 Const General: cooperative, healthy appearing, no acute distress, well developed and alert Orientation/consciousness: patient oriented x3 HEENT Head: Yes normal to inspection Eyes General: appearance normal, both eyes and all related structures Neck Neck: Yes normal visual inspection Thyroid: Thyroid normal Chest Chest palpation & inspection: normal inspection of the chest and other (no puckering, dimpling, peau de orange, retraction, discharge, masses) Breast/axilla inspection: normal inspection of the breasts Breast/axilla palpation: normal palpation of the breasts Resp Effort & Inspection: normal respiratory effort GI Inspection: Yes normal to inspection Palpation (GI): Soft to palpation Rectal Exam - Female: deferred General: Yes bladder normal to palpation External Female Exam: normal external appearance and normal appearance of the urethra Speculum Exam - Vagina: normal appearance of the vagina, normal palpation and normal vaginal discharge Speculum Exam - Cervix: normal appearance of the cervix and normal palpation Bimanual exam- vagina & uterus: normal bimanual exam, normal palpation, uterine size normal, bladder normal to palpation, normal palpation and non-tender Bimanual Exam- Adnexa, other: no masses Skin General skin exam: no rashes or lesions noted Rashes: no rashes Neuro General: patient oriented x3 Cognition (Neuro): normal cognition Extrem General: Yes normal to inspection Psych Attitude: cooperative Thought process: Normal thought process present Assessment & Plan Assessment & Plan (1) Encounter for well woman exam with routine gynecological exam: Code(s): Z01.419 - Encounter for gynecological examination (general) (routine) without abnormal findings Category: Medical Plan Discussed: Current recommendations for pap smears per ASCCP guidelines. Breast awareness, periodic self breast exams and yearly mammogram. Maintain a healthy lifestyle, well balanced diet including Calcium 1,200 mg and Vitamin D 600 IU daily, and routine exercise. Contact the office with any postmenopausal bleeding. Replens moisturizer and vaginal lubricants. Patient verbalizes understanding and agrees to the plan of care. She was given opportunity to ask questions and all questions were answered to the best of my ability. RTO in 1 year for annual forest fire fighter exam. This note is constructed using voice recognition software. While every effort has been made to ensure accuracy, lamp inspector errors may have been included. Coding Level of Care Code Est Pt Prev Care 40-64y(68423) Diagnoses Encounter for well woman exam with routine gynecological exam Z01.419
[2024-10-21 10:32] VITALS: BP 110/78; BMI 34.5
== END 2024-10-21 11:09 | disposition home or self-care (01) ==
LOC: HO.HWS 10:30
PROVIDERS: PCP Nurse Practitioner Family; Visit Provider Advanced Practice Midwife
DX: Z01.419 Encounter for gynecological examination (general) (routine) without abnormal findings (principal)
CPT/HCPCS: 99396; 99459

== ENCOUNTER → 2024-10-21 10:29 | Outpatient (BNVA) | payer OTHER, SELFPAY | PROVIDERS: PCP Nurse Practitioner Family; Visit Provider Advanced Practice Midwife | DX: Z01.419 Encounter for gynecological examination (general) (routine) without abnormal findings (principal) | CPT/HCPCS: 99396; 99459 ==

== ENCOUNTER 2024-11-19 09:37 | Outpatient (REF) | payer OTHER, SELFPAY ==
[2024-11-19 11:57] LABS: MANUAL DIFF FLAG NO
[2024-11-19 12:02] LABS: Basophils Absolute Auto 0.1 X10*3/uL (0.0-0.2); Eosinophils Absolute Auto 0.1 X10*3/uL (0.0-0.4); Eosinophils Percent Auto 1.2 % (0-4); Hematocrit 36.6 % (37.0-47.0); Hemoglobin 11.8 g/dl (12.0-16.0); Imm Gran Abs Auto 0.02 X10*3/uL (0.00-0.03); Imm Gran Pct Auto 0.3 % (0.0-0.4); Lymphocytes Percent Auto 44.2 % (20-40); Mean Corpuscular HGB Conc 32.2 g/dl (31.0-35.0); Mean Corpuscular Hemoglobin 25.5 pg (27.0-33.0); Mean Platelet Volume 10.4 fL (9.4-12.3); Monocytes Absolute Auto 0.5 X10*3/uL (0.1-1.2); Monocytes Percent Auto 7.6 % (2-11); Neutrophils Absolute Auto 3.2 x10*3/uL (2.0-8.3); Neutrophils Percent Auto 45.7 % (45-73); Platelet Count 310 X10*3/uL (160-400); Red Blood Count 4.63 X10*6/uL (4.20-5.50); Red Cell Distribution Width 15.6 % (11.0-16.0); White Blood Count 6.9 X10*3/uL (4.8-10.8)
[2024-11-19 12:50] LABS: Alanine Aminotransferase 16 U/L (0-31); Albumin Level 4.1 g/dL (3.5-5.0); Alkaline Phosphatase 73 U/L (39-117); Anion Gap 11 (12-20); Aspartate Amino Transferase 23 U/L (5-31); Bilirubin Total 0.4 mg/dL (0.0-1.0); Blood Urea Nitrogen 14 mg/dL (9-16); Calcium 10.1 mg/dL (8.4-10.2); Carbon Dioxide 26 mmol/L (22-29); Chloride 106 mmol/L (96-108); Cholesterol 145 mg/dL (<200); Estimated Glomerular Filt Rate > 60; Glucose Fasting 87 mg/dL (60-99); HDL Cholesterol 34 mg/dL (>40); LDL Cholesterol Calculated 92 mg/dL (<100); Potassium 3.4 mmol/L (3.3-5.1); Sodium 140 mmol/L (135-145); TSH reflex Free T4 0.84 uIU/mL (0.32-4.0); Total Protein 8.1 g/dL (6.5-8.0); Triglycerides 95 mg/dL (<150)
[2024-11-19 14:57] LABS: Creatinine Urine 291.64 mg/dL; Microalbum/Creatinine Ratio Ur 6.8 ug/mg cr (<30)
== END 2024-11-19 09:38 | disposition home or self-care (01) ==
LOC: HO.WFDLDS 09:37
PROVIDERS: Visit Provider Nurse Practitioner Family
DX: E11.9 Type 2 diabetes mellitus without complications (principal); I10 Essential (primary) hypertension
CPT/HCPCS: 36415; 80053; 80061; 82043; 82570; 84443; 85025

== ENCOUNTER 2024-11-26 08:05 | Outpatient (AMB) | payer OTHER, SELFPAY ==
--- NOTE | 2024-11-26 08:13 | MHC.PC.OV ---
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: No Is last menstrual period known: No Post menopausal: No Patient : No Allergies No Known Allergies Allergy (Verified 11/26/24 08:22) Medication List - Last Reconciled 11/26/24 by Amalia Clancy CNP amlodipine 10 mg PO DAILY 30 days atorvastatin 20 mg PO DAILY 3 months blood sugar diagnostic (FreeStyle Lite Strips) CHECK BLOOD SUGAR DAILY NEEDED blood-glucose meter (FreeStyle Lite Meter kit) As directed folic acid 1 mg PO DAILY 3 months hydrochlorothiazide 25 mg PO DAILY 3 months hydroxyzine HCl 25 mg PO TID PRN lancets (FreeStyle Lancets) check blood sugar daily and daily as needed losartan 100 mg PO DAILY 3 months metformin 500 mg PO BID 30 days Tobacco use date assessed: 11/26/24 Dental Screening Dental Screen Date: 11/26/24 Did you have a dental visit in the last 12 months?: Yes Did you have a dental problem in the last 6 months where you did not have access to dental care?: No Was dental information given to patient?: Patient has dentist HPI HPI Comments History of Present Illness Details 49-year-old female presents for an extended physical exam. She admits to taking her medications as prescribed without adverse reactions. She notes controlled anxiety and depressive symtpoms. Acute issue(s) - None Past Medical History - Hypertension, diabetes, hyperopia, obesity, microcytic normochromic anemia, thalassemia, anxiety, depression Social History - Nonsmoker. Does not vape. Drinks 1 glass of light beer occasionally. Denies recreational drug use - Has been making healthy dietary choices. Exercises routinely. Generally sleep well Health maintenance - Last eye exam was with [facility] 3-4 months ago. Record not available. She will sign a release form for her PCP to obtain her eye record - Last dental visit was over 10 years ago; encouraged to schedule an appointment with his dentist for routine dental care. - Last tetanus vaccine was more than 20 years ago; received Tdap vaccine today - Has not been vaccinated for the flu this season; declines vaccination - She notes that she received PNA vaccine x 1 last year. She has never been vaccinated for shingles. Advise to update PNA vaccine and get vaccinated for shingles. She may get the vaccines from her local pharmacy - Last pap smear test was on 10/19/2023: Benign - Last mammogram in 11/2023: Breast, right, stereotactic biopsy; Benign breast tissue with fibroadenomatous change and coarse calcifications; no atypia or malignancy identified. She has mammogram scheduled tomorrow - Last colonoscopy was with [facility] on 05/2023: Normal. Repeat colonoscopy in 5 years due to prior history of polyps and FH of CRC in grandparents or earlier if clinically indicated [facility] Medical History (Updated 10/21/24 @ 11:04 by Yadira Mars CNM) Lesion of left ovary Endometrial hyperplasia Breast calcification, right Family history of breast cancer Morbid obesity Leiomyoma Diabetes type 2, controlled Thalassemia TIA (transient ischemic attack) Surgical History History of esophagogastroduodenoscopy (EGD) H/O colonoscopy Hx of cholecystectomy Family History Maternal Grandmother Colon cancer Diabetes High blood pressure Stroke Father Abnormal heart rhythm High blood pressure Coronary artery disease Myocardial infarction Paternal Grandmother Kidney disease Family/Other Breast cancer Paternal Aunt Breast cancer Family/Other Breast cancer Social History Household Members: Spouse and Children Housing: Apartment Are you a primary child care centre manager to a significant other at home: No Do you presently have visiting nurse or other home services: No Alcohol intake: current Alcohol intake frequency: holidays/special occasions only Patient Tobacco Use Status: Never used Tobacco e-Cigarette/Vaping Use: Never Used Second Hand Smoke Exposure: No service: No Current occupational status: employed 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 1. Little interest or pleasure in doing things: not at all 2. Feeling down, depressed, or hopeless: not at all 3. Trouble falling or staying asleep, or sleeping too much: several days 4. Feeling tired or having little energy: not at all 5. Poor appetite or overeating: not at all 6. Feeling bad about yourself - or that you are a failure or have let yourself or your family down: not at all 7. Trouble concentrating on things, such as reading the newspaper or watching television: not at all 8. Moving or speaking so slowly that other people could have noticed. Or the opposite - being so fidgety or restless that you have been moving around a lot more than usual: not at all 9. Thoughts that you would be better off or of hurting yourself in some way: not at all Total score: 1 Depression Screening Interpretation: Negative Depression Screening Done: Yes 42724 - PHQ-9 Billing: Yes Source: Developed by Drs. Lester Olivera, Laura Lepe, Ho Slater and colleagues, with an educational chelsey from [employer]. Thrive Questionnaire Date Thrive assessed: 11/26/24 I am a: Patient What is your living situation today?: I have a steady place to live Within the past 12 months, did the food you bought not last and you didn't have the money to get more?: Never true Within the past 12 months, did you worry whether your food would run out before you got money to buy more?: Never true Do you have trouble paying for medicines?: No Do you have trouble getting transportation to medical appointments?: No Do you have trouble paying your heating and electricity bill?: No Do you have trouble taking care of your child, family member or friend?: No Do you have trouble with day-to-day activities such as bathing, preparing meals, shopping, managing finances, etc.?: No Are you currently unemployed and looking for a job?: Yes Are you interested in more education?: Yes Please select the resources that you would like help with: None Currently or been in a relationship where the following occur: No concerns reported THRIVE Score: 0 AUDIT C Alcohol Use Questionnaire (AUDIT-C) 1. How often do you have a drink containing alcohol?: 2-4 times a month 2. How many drinks containing alcohol do you have on a typical day when you are drinking?: 1 or 2 3. How often do you have six or more drinks on one occasion?: Never Total Score: 2 TIANA-7 AMB Questionnaire TIANA-7 Date TIANA - 7 assessed: 11/26/24 Feeling nervous, anxious, or on edge: 0 = Not at all Not being able to stop or control worryin = Not at all Worrying too much about different things: 0 = Not at all Trouble relaxin = Not at all Being so restless that it is hard to sit still: 0 = Not at all Becoming easily annoyed or irritable: 1 = Several days Feeling afraid as if something awful might happen: 0 = Not at all Total TIANA-7 score (0-4 normal; 5-9 mild; 10-14 moderate; 15-21 severe): 1 Source: Developed by Drs. Lester Olivera, Laura Leep, Ho Slater and colleagues, with an educational chelsey from [employer]. Review of Systems Const Details: Denies chills, Denies fatigue, Denies fever(s), Denies headache(s) and Denies weakness HEENT Denies change in vision, Denies dizziness, Denies headache(s), Denies hearing loss, Denies nasal congestion, Denies sinus pain, Denies sinus pressure and Denies sore throat Card Denies chest pain, Denies lightheadedness, Denies dyspnea and Denies other (palpitations) Resp Denies cough, Denies dyspnea and Denies wheezing GI Denies abdominal pain, Denies melena, Denies hematochezia, Denies change in bowel habits, Denies dyspepsia and Denies nausea Denies hematuria and Denies dysuria Musc Denies abnormal gait, Denies myalgias, Denies arthralgias, Denies numbness and Denies tingling Skin/Breast Denies rash, Denies unusual bruising and Denies wounds Neuro Denies abnormal gait, Denies dizziness, Denies headache(s), Denies memory loss, Denies numbness, Denies Sensory deficit (Neuro), Denies tingling and Denies weakness Psych Denies anxiety, Denies depression and Denies memory loss Endo Denies cold intolerance, Denies fatigue, Denies heat intolerance, Denies polydipsia and Denies polyuria Jean-Paul/Lymph Denies easy bleeding and Denies easy bruising Aller/Immun Denies wheezing Physical exam (Primary Care) Vital Signs: Last Vital Signs Temp 97.9 F 11/26/24 08:19 Pulse 77 11/26/24 08:19 Resp 16 11/26/24 08:19 BP 115/73 11/26/24 08:19 Pulse Ox 98 11/26/24 08:19 Oxygen Delivery Method Room Air 11/26/24 08:19 BMI result Body Mass Index 34.2 Tobacco/Smoking Status: Tobacco use Status Tobacco use date assessed 11/26/24 11/26/24 08:18 Patient Tobacco Use Status Never used Tobacco 11/26/24 08:15 e-Cigarette/Vaping Use Never Used 11/26/24 08:15 PHQ-9: PHQ-9 Score PHQ-9: Total score 1 11/26/24 08:25 Depression Screening Interpretation: Negative Thrive Assessment: Date of Thrive Assessment Date Thrive assessed 11/26/24 11/26/24 08:25 Currently or been in a relationship where the following occur: No concerns reported Const Other: General: no acute distress, well developed, alert and awake Nutritional Appearance: well nourished Orientation/consciousness: patient oriented x3 HENMT Head: Yes normocephalic and Yes atraumatic Ears: hearing grossly normal bilaterally and TM's normal bilaterally General nose exam: Normal external nose present and Normal nares present Mouth: Normal oral and palatal mucosa present and moist mucous membranes Teeth and gingiva: dentition normal Throat: Yes oropharynx normal Eyes Pupils: Equal, round and reactive pupils present and Pupil accommodation reflex normal EOM: EOMs intact bilaterally Neck Neck: Yes normal visual inspection, Yes no lymphadenopathy and Yes trachea midline Thyroid: Thyroid normal Carotids: no bruits Lymphatic: no lymphadenopathy noted Chest Chest palpation & inspection: normal inspection of the chest Resp Effort & Inspection: normal respiratory effort Auscultation: clear to auscultation bilaterally Cardio Rate: regular rate Rhythm: regular rhythm Heart sounds: S1 normal heart sound present, S2 normal heart sound present, no gallops, no murmurs and no rubs Bruits: no abdominal aortic bruits and no carotid bruits GI Palpation (GI): No Abdominal aortic bruit present, Soft to palpation, nontender, No hepatosplenomegaly present and No Rebound tenderness present Auscultation: normal bowel sounds General: Yes no CVA tenderness Back/Spine/Pelvis Back: no CVA tenderness Cervical Spine: cervical ROM normal and No Cervical spine tenderness Thoracic/Lumbar Spine: thoraco-lumbar ROM normal, No pain with thoraco-lumbar ROM, No thoracic spinal tenderness and No lumbar spinal tenderness Skin General: warm and dry. Normal skin color. Normal skin turgor Lesions: no lesions Rashes: no rashes Trauma: no lacerations or abrasions Wounds: no wounds Nails: normal Neuro General: patient oriented x3, gait normal and CN's II-XI intact bilaterally Cranial nerves: Yes Equal, round and reactive pupils present Cognition (Neuro): normal cognition Gait exam (Neuro): Normal gait present Motor exam (neuro): 5/5 motor strength present throughout Sensory Exam: No Sensory deficit (Neuro) Deep tendon reflexes (DTR's): Right patellar reflex intensity grade: 2+ and Left patellar reflex intensity grade: 2+ Extrem General: Yes normal to inspection, No edema and No calf tenderness Psych Appearance: grossly normal Affect: normal affect Attitude: cooperative Thought process: Normal thought process present Immunizations Boostrix Tdap 2.5 Lf unit-8 mcg-5 Lf/0.5 mL intramuscular syringe Performing Provider: Amalia Clancy CNP Performing Location: [facility] Administered by: Bj Taylor RN on 11/26/24 09:03 Dose Route Admin Location Dispensed Lot Number Expiration Date NDC Complaint Coordinator 0.5 mL IM Left Deltoid 0.5 mL [id number] 01/03/27 73369-635-15 [facility] V[facility] Given Date VIS Provided VIS Publication Date 11/26/24 Single Vaccine 21 Eligibility Eligibility Date Funding Source Not [facility] Eligible 11/26/24 Private Coding Level of Care Code Est Pt Prev Care 40-64y(27172) Diagnoses Normal physical exam Z00.00 Primary hypertension I10 Hypertension type: primary hypertension Microcytic anemia D50.9 Anxiety F41.9 Depression F32.A BMI 34.0-34.9,adult Z68.34 Vaccine counseling Z71.85 Additional Codes PHQ-9 - 60754 - PHQ-9 Billing: Yes ([id number]) Assessment & Plan Assessment & Plan (1) Normal physical exam: Code(s): Z00.00 - Encounter for general adult medical examination without abnormal findings Category: Medical Plan: No significant functional limitation noted. Continue current treatment regimen. Follow-up in 2 months for diabetes and hypertension or sooner with symptoms or concerns. Verbalized understanding and agreed with treatment plan. (2) Hypertension: Code(s): I10 - Essential (primary) hypertension Category: Medical Qualifiers: Hypertension type: primary hypertension Qualified Code(s): I10 - Essential (primary) hypertension Plan: Blood pressure is controlled, 115/73, within goal of less than 130/80. Continue current treatment regimen. Follow-up in 3 months. Verbalized understanding and agreed with treatment plan. (3) Microcytic anemia: Code(s): D50.9 - Iron deficiency anemia, unspecified Category: Medical Plan: Recent H&H was slightly low, 11.8/36.6, MCV 79.0. She has history of microcystic normochromic anemia, iron-deficiency anemia, and thalassemia. She was followed by [facility] [place]. She is on folic acid 1 mg daily which I encouraged to continue as prescribed. Will check iron profile, ferritin, vitamin B12, and folate levels. Will make changes as needed. Verbalized understanding and agreed with treatment plan. (4) Anxiety: Code(s): F41.9 - Anxiety disorder, unspecified Category: Medical Plan: Controlled anxiety and depressive symptoms on current management. PHQ-9 and TIANA-7 scores are normal. Continue current treatment regimen. Follow-up with symptoms or concerns. Verbalized understanding and agreed with treatment plan. (5) Depression: Code(s): F32.A - Depression, unspecified Category: Medical Plan: Plan as above. (6) BMI 34.0-34.9,adult: Code(s): Z68.34 - Body mass index [BMI] 34.0-34.9, adult Category: Medical Plan: She currently weighs 199 lb, BMI is 34.2. She will continue to make healthy lifestyle changes which encouraged. Will refer to a thoracic surgeon/dietitian or weight management as needed. Verbalized understanding and agreed with treatment plan. (7) Vaccine counseling: Code(s): Z71.85 - Encounter for immunization safety counseling Category: Medical Plan: She received PNA vaccine x 1 last year. She has never been vaccinated for shingles. Advise to update PNA vaccine and get vaccinated for shingles. She may get the vaccines from her local pharmacy. Verbalized understanding and agreed with treatment plan. Orders: Orders Ferritin Today D50.9 - Iron deficiency anemia, unspecified TDaP Immunization Today Z23 - Encounter for immunization IRON PROFILE Today D50.9 - Iron deficiency anemia, unspecified Vitamin B12 and Folate Today D50.9 - Iron deficiency anemia, unspecified Medications: New Boostrix Tdap (diphth,pertus(acell),tetanus) 0.5 mL IM ONCE 0.5 mL 0RF NS Z23 - Encounter for immunization
[2024-11-26 08:19] VITALS: BP 115/73; PULSE 77; RESP 16; TEMP 36.6; O2SAT 98; BMI 34.2
== END 2024-11-26 08:54 | disposition home or self-care (01) ==
LOC: HO.HMCFM 08:06
PROVIDERS: PCP Nurse Practitioner Family; Visit Provider Nurse Practitioner Family
DX: Z00.00 Encounter for general adult medical examination without abnormal findings (principal); I10 Essential (primary) hypertension; D50.9 Iron deficiency anemia, unspecified; F41.9 Anxiety disorder, unspecified; F32.A Depression, unspecified; Z68.34 Body mass index [BMI] 34.0-34.9, adult; Z71.85 Encounter for immunization safety counseling; Z23 Encounter for immunization

== ENCOUNTER → 2024-11-26 08:05 | Outpatient (BNVA) | payer OTHER, SELFPAY | PROVIDERS: PCP Nurse Practitioner Family; Visit Provider Nurse Practitioner Family | DX: Z00.00 Encounter for general adult medical examination without abnormal findings (principal); Z23 Encounter for immunization; I10 Essential (primary) hypertension; D50.9 Iron deficiency anemia, unspecified; F41.9 Anxiety disorder, unspecified; F32.A Depression, unspecified; Z71.85 Encounter for immunization safety counseling | CPT/HCPCS: 90471; 90715; 96127; 99396 ==

== ENCOUNTER 2024-11-26 08:59 | Outpatient (REF) | payer OTHER, SELFPAY ==
[2024-11-26 12:34] LABS: Iron 47 mcg/dL (30-160); Percent Iron Saturation 20 % (15-50); Total Iron Binding Capacity 231 mcg/dL (228-428); Unsaturated Iron Binding 184 ug/dL
[2024-11-26 12:48] LABS: Ferritin 126 ng/mL (10-250)
[2024-11-26 13:05] LABS: Folate > 20.0 ng/mL (> or = 4.0); Vitamin B12 475 pg/mL (200-900)
== END 2024-11-26 09:00 | disposition home or self-care (01) ==
LOC: HO.WFDLDS 08:59
PROVIDERS: Visit Provider Nurse Practitioner Family
DX: D50.9 Iron deficiency anemia, unspecified (principal)
CPT/HCPCS: 36415; 82607; 82728; 82746; 83540

== ENCOUNTER 2024-11-27 09:59 | Outpatient (REF) | payer OTHER, SELFPAY | END 2024-11-27 10:00 | disposition home or self-care (01) | LOC: HO.MAMMO 09:59 | PROVIDERS: PCP Nurse Practitioner Family; Visit Provider Nurse Practitioner Family | DX: Z12.31 Encounter for screening mammogram for malignant neoplasm of breast (principal) | CPT/HCPCS: 77063; 77067 ==

== ENCOUNTER → 2024-11-27 10:00 | Outpatient (BNV) | payer OTHER, SELFPAY | PROVIDERS: PCP Nurse Practitioner Family; Visit Provider Internal Medicine | DX: Z12.31 Encounter for screening mammogram for malignant neoplasm of breast (principal) | CPT/HCPCS: 77063; 77067 ==

== ENCOUNTER 2025-01-27 09:24 | Outpatient (AMB) | payer OTHER, SELFPAY ==
--- NOTE | 2025-01-27 09:26 | A.OFFPC_ITS ---
Vital Signs 01/27/25 09:33 Height 5 ft 4 in Weight 192 lb 6 oz BMI 33.0 BP 115/73 Blood Pressure Location Lt brachial Position Sitting Respiration 16 Pulse 74 Pulse Source Pulse Oximeter Temp 98.3 F Temp Source Oral Pulse Oximetry (%) 100 Oxygen Delivery Method Room Air Intake Visit Reasons: 2 mos HTN, DM Intake Note: patient here for 2 month follow up on HTN and DM Night Clerk Required: No Is last menstrual period known: No Post menopausal: No Patient : No Allergies No Known Allergies Allergy (Verified 01/27/25 09:46) Medication List - Last Reconciled 01/27/25 by Amalia Clancy CNP amlodipine 10 mg PO DAILY 30 days atorvastatin 20 mg PO DAILY 3 months blood sugar diagnostic (FreeStyle Lite Strips) CHECK BLOOD SUGAR DAILY NEEDED blood-glucose meter (FreeStyle Lite Meter kit) As directed folic acid 1 mg PO DAILY 3 months hydrochlorothiazide 25 mg PO DAILY 3 months hydroxyzine HCl 25 mg PO TID PRN lancets (FreeStyle Lancets) check blood sugar daily and daily as needed losartan 100 mg PO DAILY 3 months metformin 500 mg PO BID 30 days Tobacco use date assessed: 01/27/25 Dental Screening Dental Screen Date: 01/27/25 Did you have a dental visit in the last 12 months?: Yes Did you have a dental problem in the last 6 months where you did not have access to dental care?: No Was dental information given to patient?: Patient has dentist HPI HPI Comments History of Present Illness Details 49-year-old female presents for hyperten maria l and diabetes follow-up. She admits to taking her medications as prescribed without adverse reactions. She notes that she has been making healthy lifestyle changes. She offers no complaints and denies acute symptoms at this time. [facility], [facility] Medical History (Updated 10/21/24 @ 11:04 by Yadira Mars CNM) Lesion of left ovary Endometrial hyperplasia Breast calcification, right Family history of breast cancer Morbid obesity Leiomyoma Diabetes type 2, controlled Thalassemia TIA (transient ischemic attack) Surgical History History of esophagogastroduodenoscopy (EGD) H/O colonoscopy Hx of cholecystectomy Family History Maternal Grandmother Colon cancer Diabetes High blood pressure Stroke Father Abnormal heart rhythm High blood pressure Coronary artery disease Myocardial infarction Paternal Grandmother Kidney disease Family/Other Breast cancer Paternal Aunt Breast cancer Family/Other Breast cancer Social History Household Members: Spouse and Children Housing: Apartment Are you a primary care transition manager to a significant other at home: No Do you presently have visiting nurse or other home services: No Alcohol intake: current Alcohol intake frequency: holidays/special occasions only Patient Tobacco Use Status: Never used Tobacco e-Cigarette/Vaping Use: Never Used Second Hand Smoke Exposure: No service: No Current occupational status: employed 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 Current occupational exposures/hazards: No Cognitive needs: No Hearing needs: No Vision needs: No Female Reproductive History Menstrual Age of Menarche: 10 Questionnaire Thrive Questionnaire Date Thrive assessed: 09/24/24 I am a: Patient What is your living situation today?: I have a steady place to live Within the past 12 months, did the food you bought not last and you didn't have the money to get more?: Never true Within the past 12 months, did you worry whether your food would run out before you got money to buy more?: Never true Do you have trouble paying for medicines?: No Do you have trouble getting transportation to medical appointments?: No Do you have trouble paying your heating and electricity bill?: No Do you have trouble taking care of your child, family member or friend?: No Do you have trouble with day-to-day activities such as bathing, preparing meals, shopping, managing finances, etc.?: No Are you currently unemployed and looking for a job?: No Are you interested in more education?: I choose not to answer this question Please select the resources that you would like help with: None Currently or been in a relationship where the following occur: No concerns reported THRIVE Score: 0 TIANA-7 AMB Questionnaire TIANA-7 Date TIANA - 7 assessed: 11/26/24 Source: Developed by Drs. Lester Olivera, Laura Lepe, Ho Slater and colleagues, with an educational chelsey from [employer]. Review of Systems Const Details: Const Denies chills, Denies fatigue, Denies fever(s), Denies headache(s) and Denies weakness ENT Denies dizziness and Denies headache(s) Card Denies chest pain, Denies lightheadedness, Denies dyspnea and Denies other (Palpitations) Resp Denies cough, Denies dyspnea, Denies wheezing and Denies other ( shortness of breath) GI Denies abdominal pain, Denies melena, Denies hematochezia, Denies change in bowel habits, Denies dyspepsia and Denies nausea Denies hematuria and Denies dysuria Musc Denies abnormal gait, Denies myalgias, Denies arthralgias, Denies numbness and Denies tingling Skin/Breast Denies rash, Denies unusual bruising and Denies wounds Neuro Denies abnormal gait, Denies dizziness, Denies headache(s), Denies memory loss, Denies numbness, Denies Sensory deficit (Neuro), Denies tingling and Denies weakness Psych Denies anxiety, Denies depression, Denies memory loss Endo Denies cold intolerance, Denies fatigue, Denies heat intolerance, Denies polydipsia and Denies polyuria Aller/Immun Denies wheezing Physical exam (Primary Care) Vital Signs: Last Vital Signs Temp 98.3 F 01/27/25 09:33 Pulse 74 01/27/25 09:33 Resp 16 01/27/25 09:33 BP 115/73 01/27/25 09:33 Pulse Ox 100 01/27/25 09:33 Oxygen Delivery Method Room Air 01/27/25 09:33 BMI result Body Mass Index 33.0 Tobacco/Smoking Status: Tobacco use Status Tobacco use date assessed 01/27/25 01/27/25 09:36 Patient Tobacco Use Status Never used Tobacco 01/27/25 09:28 e-Cigarette/Vaping Use Never Used 01/27/25 09:28 Thrive Assessment: Date of Thrive Assessment Date Thrive assessed 09/24/24 01/27/25 09:28 Currently or been in a relationship where the following occur: No concerns reported Const Other: General: no acute distress and well developed Nutritional Appearance: well nourished Orientation/consciousness: patient oriented x3 HENMT Head: Yes normocephalic and Yes atraumatic Eyes General: appearance normal, both eyes and all related structures Pupils: Equal, round and reactive pupils present EOM: EOMs intact bilaterally Resp Effort & Inspection: normal respiratory effort Auscultation: clear to auscultation bilaterally Cardio Rate: regular rate Rhythm: regular rhythm Heart sounds: S1 normal heart sound present, S2 normal heart sound present, no gallops, no murmurs and no rubs GI Palpation (GI): No Abdominal aortic bruit present, Soft to palpation, nontender, No hepatosplenomegaly present and No Rebound tenderness present Auscultation: normal bowel sounds General: Yes no CVA tenderness Back/Spine/Pelvis Back: no CVA tenderness Cervical Spine: cervical ROM normal and No Cervical spine tenderness Thoracic/Lumbar Spine: thoraco-lumbar ROM normal, No pain with thoraco-lumbar ROM, No thoracic spinal tenderness and No lumbar spinal tenderness Extrem General: Yes normal to inspection, No edema and No calf tenderness Skin General: warm and dry. Normal skin color. Normal skin turgor Neuro General: patient oriented x3, gait normal and no focal neuro deficit Cranial nerves: Yes Equal, round and reactive pupils present Cognition (Neuro): normal cognition Gait exam (Neuro): Normal gait present Sensory Exam: No Sensory deficit (Neuro) Psych Appearance: grossly normal Affect: normal affect Attitude: cooperative Thought process: Normal thought process present Results AMB Hemoglobin A1c AMB Hemoglobin A1c 5.1 % Last Edit by Maral Reid MA on 01/27/25 09:58 Results Reviewed Results Reviewed: Laboratory Last Values Hgb A1c (Clinic) 5.1 % (4.0-6.0) 01/27/25 09:43 Coding Level of Care Code Est Pt Level 3 (52645) Diagnoses Primary hypertension I10 Hypertension type: primary hypertension Diabetes type 2, controlled E11.9 Assessment & Plan Assessment & Plan (1) Hypertension: Code(s): I10 - Essential (primary) hypertension Category: Medical Qualifiers: Hypertension type: primary hypertension Qualified Code(s): I10 - Essential (primary) hypertension Plan: Blood pressure today is 115/73, within goal of less than 130/80. Continue current treatment regimen. Low-sodium diet encouraged. Follow-up in 3 months or sooner with symptoms or concerns. Verbalized understanding and agreed with the treatment plan. (2) Diabetes type 2, controlled: Code(s): E11.9 - Type 2 diabetes mellitus without complications Category: Medical Plan: A1c today is 5.1%, within goal of less than 7.0%. Previous A1c was 5.5%. Continue current treatment regimen. ADA diet and routine exercise encouraged. She notes that she has an appointment scheduled for an eye exam with [facility] later this month. She will sign a release for her PCP to obtain ophthalmology record. Follow-up in 3 months. Verbalized understanding and agreed with the treatment plan. Orders: Orders AMB Hemoglobin A1c Today Z13.9 - Encounter for screening, unspecified Medications: Changed From metformin 500 mg PO BID 30 days 60 tabs 3RF E11.9 - Type 2 diabetes mellitus without complications To metformin 500 mg PO BID 180 tabs 1RF 90 days E11.9 - Type 2 diabetes mellitus without complications
[2025-01-27 09:33] VITALS: BP 115/73; PULSE 74; RESP 16; TEMP 36.8; O2SAT 100; BMI 33.0
== END 2025-01-27 09:55 | disposition home or self-care (01) ==
LOC: HO.HMCFM 09:25
PROVIDERS: PCP Nurse Practitioner Family; Visit Provider Nurse Practitioner Family
DX: I10 Essential (primary) hypertension (principal); E11.9 Type 2 diabetes mellitus without complications; Z13.9 Encounter for screening, unspecified

== ENCOUNTER → 2025-01-27 09:24 | Outpatient (BNVA) | payer OTHER, SELFPAY | PROVIDERS: PCP Nurse Practitioner Family; Visit Provider Nurse Practitioner Family | DX: I10 Essential (primary) hypertension (principal); E11.9 Type 2 diabetes mellitus without complications | CPT/HCPCS: 83036; 99212 ==

== ENCOUNTER 2025-05-01 10:01 | Outpatient (AMB) | payer OTHER, SELFPAY ==
--- NOTE | 2025-05-01 10:06 | MHC.PC.OV ---
Vital Signs 05/01/25 10:11 Height 5 ft 4 in Weight 195 lb 8 oz BMI 33.6 BP 129/74 Blood Pressure Location Rt brachial Position Sitting Respiration 16 Pulse 67 Pulse Source Pulse Oximeter Temp 98.0 F Temp Source Oral Pulse Oximetry (%) 97 Oxygen Delivery Method Room Air Intake Visit Reasons: 3 mos HTN, DM Intake Note: patient here for 3 month follow up for HTN and DM Story Teller Required: No Is last menstrual period known: No Post menopausal: No Patient : No Allergies No Known Allergies Allergy (Verified 05/01/25 10:23) Medication List - Last Reconciled 05/01/25 by Amalia Clancy CNP amlodipine 10 mg PO DAILY 30 days atorvastatin 20 mg PO DAILY 3 months blood sugar diagnostic (FreeStyle Lite Strips) CHECK BLOOD SUGAR DAILY NEEDED blood-glucose meter (FreeStyle Lite Meter kit) As directed folic acid 1 mg PO DAILY 3 months hydrochlorothiazide 25 mg PO DAILY 3 months hydroxyzine HCl 25 mg PO TID PRN lancets (FreeStyle Lancets) check blood sugar daily and daily as needed losartan 100 mg PO DAILY 3 months metformin 500 mg PO BID 90 days Tobacco use date assessed: 05/01/25 Dental Screening Dental Screen Date: 05/01/25 Did you have a dental visit in the last 12 months?: Yes Did you have a dental problem in the last 6 months where you did not have access to dental care?: No Was dental information given to patient?: Patient has dentist HPI HPI Comments History of Present Illness Details 49-year-old female presents for hypertension and diabetes follow-up. She admits to taking her medications as prescribed without adverse reactions. She notes that she has been making healthy lifestyle changes. She offers no complaints and denies acute symptoms at this time. [facility] Medical History (Updated 10/21/24 @ 11:04 by Yadira Mars CNM) Lesion of left ovary Endometrial hyperplasia Breast calcification, right Family history of breast cancer Morbid obesity Leiomyoma Diabetes type 2, controlled Thalassemia TIA (transient ischemic attack) Surgical History History of esophagogastroduodenoscopy (EGD) H/O colonoscopy Hx of cholecystectomy Family History Maternal Grandmother Colon cancer Diabetes High blood pressure Stroke Father Abnormal heart rhythm High blood pressure Coronary artery disease Myocardial infarction Paternal Grandmother Kidney disease Family/Other Breast cancer Paternal Aunt Breast cancer Family/Other Breast cancer Social History Household Members: Spouse and Children Housing: Apartment Are you a primary landcare officer to a significant other at home: No Do you presently have visiting nurse or other home services: No Alcohol intake: current Alcohol intake frequency: holidays/special occasions only Patient Tobacco Use Status: Never used Tobacco e-Cigarette/Vaping Use: Never Used Second Hand Smoke Exposure: No service: No Current occupational status: employed 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 Current occupational exposures/hazards: No Cognitive needs: No Hearing needs: No Vision needs: No Female Reproductive History Menstrual Age of Menarche: 10 Questionnaire Thrive Questionnaire Date Thrive assessed: 09/24/24 I am a: Patient What is your living situation today?: I have a steady place to live Within the past 12 months, did the food you bought not last and you didn't have the money to get more?: Never true Within the past 12 months, did you worry whether your food would run out before you got money to buy more?: Never true Do you have trouble paying for medicines?: No Do you have trouble getting transportation to medical appointments?: No Do you have trouble paying your heating and electricity bill?: No Do you have trouble taking care of your child, family member or friend?: No Do you have trouble with day-to-day activities such as bathing, preparing meals, shopping, managing finances, etc.?: No Are you currently unemployed and looking for a job?: No Are you interested in more education?: I choose not to answer this question Please select the resources that you would like help with: None Currently or been in a relationship where the following occur: No concerns reported THRIVE Score: 0 TIANA-7 AMB Questionnaire TIANA-7 Date TIANA - 7 assessed: 11/26/24 Source: Developed by Drs. Lester Olivera, Laura Lepe, Ho Slater and colleagues, with an educational chelsey from [employer]. Review of Systems Const Details: Const Denies chills, Denies fatigue, Denies fever(s), Denies headache(s) and Denies weakness ENT Denies dizziness and Denies headache(s) Card Denies chest pain, Denies lightheadedness, Denies dyspnea and Denies other (Palpitations) Resp Denies cough, Denies dyspnea, Denies wheezing and Denies other ( shortness of breath) GI Denies abdominal pain, Denies melena, Denies hematochezia, Denies change in bowel habits, Denies dyspepsia and Denies nausea Denies hematuria and Denies dysuria Musc Denies abnormal gait, Denies myalgias, Denies arthralgias, Denies numbness and Denies tingling Skin/Breast Denies rash, Denies unusual bruising and Denies wounds Neuro Denies abnormal gait, Denies dizziness, Denies headache(s), Denies memory loss, Denies numbness, Denies Sensory deficit (Neuro), Denies tingling and Denies weakness Psych Denies anxiety, Denies depression, Denies memory loss Endo Denies cold intolerance, Denies fatigue, Denies heat intolerance, Denies polydipsia and Denies polyuria Aller/Immun Denies wheezing Physical exam (Primary Care) Vital Signs: Last Vital Signs Temp 98.0 F 05/01/25 10:11 Pulse 67 05/01/25 10:11 Resp 16 05/01/25 10:11 BP 129/74 05/01/25 10:11 Pulse Ox 97 05/01/25 10:11 Oxygen Delivery Method Room Air 05/01/25 10:11 BMI result Body Mass Index 33.6 Tobacco/Smoking Status: Tobacco use Status Tobacco use date assessed 05/01/25 05/01/25 10:16 Patient Tobacco Use Status Never used Tobacco 05/01/25 10:08 e-Cigarette/Vaping Use Never Used 05/01/25 10:08 Thrive Assessment: Date of Thrive Assessment Date Thrive assessed 09/24/24 05/01/25 10:08 Currently or been in a relationship where the following occur: No concerns reported Const Other: General: no acute distress and well developed Nutritional Appearance: well nourished Orientation/consciousness: patient oriented x3 HENMT Head: Yes normocephalic and Yes atraumatic Eyes General: appearance normal, both eyes and all related structures Pupils: Equal, round and reactive pupils present EOM: EOMs intact bilaterally Resp Effort & Inspection: normal respiratory effort Auscultation: clear to auscultation bilaterally Cardio Rate: regular rate Rhythm: regular rhythm Heart sounds: S1 normal heart sound present, S2 normal heart sound present, no gallops, no murmurs and no rubs GI Palpation (GI): No Abdominal aortic bruit present, Soft to palpation, nontender, No hepatosplenomegaly present and No Rebound tenderness present Auscultation: normal bowel sounds General: Yes no CVA tenderness Back/Spine/Pelvis Back: no CVA tenderness Cervical Spine: cervical ROM normal and No Cervical spine tenderness Thoracic/Lumbar Spine: thoraco-lumbar ROM normal, No pain with thoraco-lumbar ROM, No thoracic spinal tenderness and No lumbar spinal tenderness Extrem General: Yes normal to inspection, No edema and No calf tenderness Skin General: warm and dry. Normal skin color. Normal skin turgor Lesions: no lesions Rashes: no rashes Trauma: no lacerations or abrasions Wounds: no wounds Nails: normal Neuro General: patient oriented x3, gait normal and no focal neuro deficit Cranial nerves: Yes Equal, round and reactive pupils present Cognition (Neuro): normal cognition Gait exam (Neuro): Normal gait present Sensory Exam: No Sensory deficit (Neuro) Psych Appearance: grossly normal Affect: normal affect Attitude: cooperative Thought process: Normal thought process present Results AMB Hemoglobin A1c AMB Hemoglobin A1c 5.6 % Last Edit by Maral Reid MA on 05/01/25 10:33 Coding Level of Care Code Est Pt Level 3 (19858) Diagnoses Primary hypertension I10 Hypertension type: primary hypertension Diabetes type 2, controlled E11.9 Assessment & Plan Assessment & Plan (1) Hypertension: Code(s): I10 - Essential (primary) hypertension Category: Medical Qualifiers: Hypertension type: primary hypertension Qualified Code(s): I10 - Essential (primary) hypertension Plan: Blood pressure is 129/74, within goal of less than 130/80. Continue current treatment regimen. Low-sodium diet encouraged. Follow-up in 3 months or sooner with symptoms or concerns. Verbalized understanding and agreed with the treatment plan. (2) Diabetes type 2, controlled: Code(s): E11.9 - Type 2 diabetes mellitus without complications Category: Medical Plan: A1c today is 5.9%, within goal of less than 7.0%. Previous A1c was 5.1% Continue current treatment regimen. ADA diet and routine exercise encouraged. LDL was 92 in November. Fast for 10-12 hours, may drink water, and perform lipid panel blood work 2-3 days before next visit. Follow-up in 3 months. Verbalized understanding and agreed with the plan. Orders: Orders Lipid Panel 3 Months E11.9 - Type 2 diabetes mellitus without complications AMB Hemoglobin A1c Today Z13.9 - Encounter for screening, unspecified
[2025-05-01 10:11] VITALS: BP 129/74; PULSE 67; RESP 16; TEMP 36.7; O2SAT 97; BMI 33.6
== END 2025-05-01 10:35 | disposition home or self-care (01) ==
LOC: HO.HMCFM 10:02
PROVIDERS: PCP Nurse Practitioner Family; Visit Provider Nurse Practitioner Family
DX: I10 Essential (primary) hypertension (principal); E11.9 Type 2 diabetes mellitus without complications; Z13.9 Encounter for screening, unspecified

== ENCOUNTER → 2025-05-01 10:01 | Outpatient (BNVA) | payer OTHER, SELFPAY | PROVIDERS: PCP Nurse Practitioner Family; Visit Provider Nurse Practitioner Family | DX: E11.9 Type 2 diabetes mellitus without complications (principal); I10 Essential (primary) hypertension | CPT/HCPCS: 83036; 99212 ==

== ENCOUNTER 2025-07-23 09:13 | Outpatient (REF) | payer OTHER, SELFPAY ==
[2025-07-23 10:24] LABS: Cholesterol 157 mg/dL (<200); HDL Cholesterol 40 mg/dL (>40); Triglycerides 95 mg/dL (<150)
== END 2025-07-23 09:14 | disposition home or self-care (01) ==
LOC: HO.LAB 09:13
PROVIDERS: PCP Nurse Practitioner Family; Visit Provider Nurse Practitioner Family
DX: E11.9 Type 2 diabetes mellitus without complications (principal)
CPT/HCPCS: 36415; 80061

== ENCOUNTER 2025-08-03 09:19 | Outpatient (AMB) | payer OTHER, SELFPAY ==
--- NOTE | 2025-08-03 09:21 | A.OFFPC_ITS ---
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 She admits to taking her medications as prescribed without adverse reactions. She notes that she has been making healthy lifestyle changes. She offers no complaints and denies acute symptoms at this time. [facility] Medical History (Updated 10/21/24 @ 11:04 by Yadira Mars CNM) Lesion of left ovary Endometrial hyperplasia Breast calcification, right Family history of breast cancer Morbid obesity Leiomyoma Diabetes type 2, controlled Thalassemia TIA (transient ischemic attack) Surgical History History of esophagogastroduodenoscopy (EGD) H/O colonoscopy Hx of cholecystectomy Family History Maternal Grandmother Colon cancer Diabetes High blood pressure Stroke Father Abnormal heart rhythm High blood pressure Coronary artery disease Myocardial infarction Paternal Grandmother Kidney disease Family/Other Breast cancer Paternal Aunt Breast cancer Family/Other Breast cancer Social History Household Members: Spouse and Children Housing: Apartment Are you a primary caregivers homecare to a significant other at home: No Do you presently have visiting nurse or other home services: No Alcohol intake: current Alcohol intake frequency: holidays/special occasions only Patient Tobacco Use Status: Never used Tobacco e-Cigarette/Vaping Use: Never Used Second Hand Smoke Exposure: No service: No Current occupational status: employed Current occupation: [employer] Current occupational exposures/hazards: No Cognitive needs: No Hearing needs: No Vision needs: No Female Reproductive History Menstrual Age of Menarche: 10 Questionnaire Thrive Questionnaire Date Thrive assessed: 09/24/24 I am a: Patient What is your living situation today?: I have a steady place to live Within the past 12 months, did the food you bought not last and you didn't have the money to get more?: Never true Within the past 12 months, did you worry whether your food would run out before you got money to buy more?: Never true Do you have trouble paying for medicines?: No Do you have trouble getting transportation to medical appointments?: No Do you have trouble paying your heating and electricity bill?: No Do you have trouble taking care of your child, family member or friend?: No Do you have trouble with day-to-day activities such as bathing, preparing meals, shopping, managing finances, etc.?: No Are you currently unemployed and looking for a job?: No Are you interested in more education?: I choose not to answer this question Please select the resources that you would like help with: None Currently or been in a relationship where the following occur: No concerns reported THRIVE Score: 0 TIANA-7 AMB Questionnaire TIANA-7 Date TIANA - 7 assessed: 11/26/24 Source: Developed by Drs. Lester Olivera, Laura Lepe, Ho Slater and colleagues, with an educational chelsey from [employer]. Review of Systems Const Details: Const Denies chills, Denies fatigue, Denies fever(s), Denies headache(s) and Denies weakness ENT Denies dizziness and Denies headache(s) Card Denies chest pain, Denies lightheadedness, Denies dyspnea and Denies other (Palpitations) Resp Denies cough, Denies dyspnea, Denies wheezing and Denies other ( shortness of breath) GI Denies abdominal pain, Denies melena, Denies hematochezia, Denies change in bowel habits, Denies dyspepsia and Denies nausea Denies hematuria and Denies dysuria Musc Denies abnormal gait, Denies myalgias, Denies arthralgias, Denies numbness and Denies tingling Skin/Breast Denies rash, Denies unusual bruising and Denies wounds Neuro Denies abnormal gait, Denies dizziness, Denies headache(s), Denies memory loss, Denies numbness, Denies Sensory deficit (Neuro), Denies tingling and Denies weakness Psych Denies anxiety, Denies depression, Denies memory loss Endo Denies cold intolerance, Denies fatigue, Denies heat intolerance, Denies polydipsia and Denies polyuria Aller/Immun Denies wheezing Physical exam (Primary Care) Tobacco/Smoking Status: Tobacco use Status Tobacco use date assessed 05/01/25 08/03/25 09:23 Patient Tobacco Use Status Never used Tobacco 08/03/25 09:23 e-Cigarette/Vaping Use Never Used 08/03/25 09:23 Thrive Assessment: Date of Thrive Assessment Date Thrive assessed 09/24/24 08/03/25 09:23 Currently or been in a relationship where the following occur: No concerns reported Const Other: General: no acute distress and well developed Nutritional Appearance: well nourished Orientation/consciousness: patient oriented x3 [facility] Head: Yes normocephalic and Yes atraumatic Eyes General: appearance normal, both eyes and all related structures Pupils: Equal, round and reactive pupils present EOM: EOMs intact bilaterally Resp Effort & Inspection: normal respiratory effort Auscultation: clear to auscultation bilaterally Cardio Rate: regular rate Rhythm: regular rhythm Heart sounds: S1 normal heart sound present, S2 normal heart sound present, no gallops, no murmurs and no rubs Extrem General: Yes normal to inspection, No edema and No calf tenderness Skin General: warm and dry. Normal skin color. Normal skin turgor Neuro General: patient oriented x3, gait normal and no focal neuro deficit Cranial nerves: Yes Equal, round and reactive pupils present Cognition (Neuro): normal cognition Gait exam (Neuro): Normal gait present Sensory Exam: No Sensory deficit (Neuro) Psych Appearance: grossly normal Affect: normal affect Attitude: cooperative Thought process: Normal thought process present Coding Level of Care Code Est Pt Level 3 ([id number]) Diagnoses Primary hypertension I10 Hypertension type: primary hypertension Diabetes type 2, controlled E11.9 Assessment & Plan Assessment & Plan (1) Hypertension: Code(s): I10 - Essential (primary) hypertension Category: Medical Qualifiers: Hypertension type: primary hypertension Qualified Code(s): I10 - Essential (primary) hypertension Plan: Blood pressure today is 122/67, within goal of less than 130/80. Continue current treatment regimen. Routine exercise encouraged. Follow-up in 3 months for transfer of care with the new provider, hypertension, and diabetes. Return sooner with symptoms or concerns. Verbalized understanding and agreed with the plan. (2) Diabetes type 2, controlled: Code(s): E11.9 - Type 2 diabetes mellitus without complications Category: Medical Plan: A1c today is 5.6%, within goal of less than 7.0%. Previous A1c was 5.6%. Continue current treatment regimen. ADA diet and routine exercise encouraged. Follow-up in 3 months. Verbalized understanding and agreed with the plan. Orders: Orders AMB Hemoglobin A1c Today Z13.9 - Encounter for screening, unspecified
[2025-08-03 09:26] VITALS: BP 122/67; PULSE 69; RESP 16; TEMP 36.7; O2SAT 99; BMI 33.6
== END 2025-08-03 09:50 | disposition home or self-care (01) ==
LOC: HO.HMCFM 09:20
PROVIDERS: PCP Nurse Practitioner Family; Visit Provider Nurse Practitioner Family
DX: I10 Essential (primary) hypertension (principal); E11.9 Type 2 diabetes mellitus without complications; Z13.9 Encounter for screening, unspecified

== ENCOUNTER → 2025-08-03 09:19 | Outpatient (BNVA) | payer OTHER, SELFPAY | PROVIDERS: PCP Nurse Practitioner Family; Visit Provider Nurse Practitioner Family | DX: I10 Essential (primary) hypertension (principal); E11.9 Type 2 diabetes mellitus without complications | CPT/HCPCS: 83036; 99212 ==